=== PATIENT | female | born 1980 | race Caucasian/White ===

== ENCOUNTER 2018-04-17 14:56 | Outpatient (REF) | payer MEDICARE, MEDICAID, SELFPAY ==
[2018-04-17 21:10] LABS: Abs Immature Grans 0.02 k/cumm (0.0-0.09); Absolute Eosinophil Count 0.26 k/cumm (0.0-0.7); Absolute Lymphocyte Count 3.13 k/cumm (1.2-3.4); Absolute Monocyte Count 1.07 k/cumm (0.11-0.7); Absolute Neutrophil Count 5.62 k/cumm (1.2-6.7); Eosinophils % 2.5; HGB 13.9 g/dL (12.0-15.5); Immature Grans % 0.2; Lymphocytes % 30.7; Mean Corp. HGB Concentration 32.3 g/dL (32.0-36.0); Mean Corpuscular Hemoglobin 29.2 pg (27.0-33.0); Mean Corpuscular Volume 90.3 fL (80-95); Monocytes % 10.5; Neutrophils % 55.1; Platelet Count 319 x1000/uL (130-400); RBC 4.76 m/cumm (4.00-5.20); RBC Distribution Width 16.1 % (11.7-14.6)
[2018-04-17 21:29] LABS: ALT 33 U/L (12-78); AST 20 U/L (15-37); Albumin 3.8 g/dL (3.4-5.0); Alkaline Phosphatase 67 U/L (46-116); Bilirubin, Direct 0.09 mg/dL (0.00-0.20); Bilirubin, Total 0.3 mg/dL (0.2-1.0); Total Protein 7.5 g/dL (6.4-8.2)
[2018-04-17 21:48] LABS: VALPROIC ACID 37.5 ug/mL (50-100)
[2018-04-19 10:14] LABS: Syphilis Serology (RPR) Positive (Negative)
[2018-06-08 18:08] LABS: Rapid Plasma Reagin w/Reflex Positive (Negative); Syphilis IgG Ab w/Reflex Positive (Negative)
== END 2018-04-17 15:16 ==
LOC: NCHCN 14:56
PROVIDERS: PCP Nurse Practitioner Family; Visit Provider Nurse Practitioner Family
DX: F31.60 Bipolar disorder, current episode mixed, unspecified (principal); A51.49 Other secondary syphilitic conditions; Z51.81 Encounter for therapeutic drug level monitoring; Z79.899 Other long term (current) drug therapy
CPT/HCPCS: 80076; 86593; 80164; 85025; 85730; 86592; 86780

== ENCOUNTER 2019-03-23 15:17 | Outpatient (REF) | payer MEDICARE, SELFPAY ==
[2019-03-23 21:16] LABS: Abs Immature Grans 0.04 k/cumm (0.0-0.09); Absolute Basophil Count 0.08 k/cumm (0.0-0.2); Absolute Eosinophil Count 0.19 k/cumm (0.0-0.7); Absolute Lymphocyte Count 2.77 k/cumm (1.2-3.4); Absolute Monocyte Count 1.03 k/cumm (0.11-0.7); Absolute Neutrophil Count 9.58 k/cumm (1.2-6.7); Basophils % 0.6; Eosinophils % 1.4; HCT 46.7 % (36.0-46.0); HGB 15.5 g/dL (12.0-15.5); Immature Grans % 0.3; Lymphocytes % 20.2; Mean Corp. HGB Concentration 33.2 g/dL (32.0-36.0); Mean Corpuscular Hemoglobin 30.5 pg (27.0-33.0); Mean Corpuscular Volume 91.7 fL (80-95); Mean Platelet Volume 10.8 fL (8.0-11.0); Monocytes % 7.5; Platelet Count 416 x1000/uL (130-400); RBC 5.09 m/cumm (4.00-5.20); RBC Distribution Width 16.2 % (11.7-14.6); White Blood Cell Count 13.69 k/cumm (4.4-10.8)
[2019-03-23 21:24] LABS: Iron 32 ug/dL (50-175); Total Iron Binding Capacity 445 ug/dL (250-450); Transferrin Sat 7 % (15-50)
[2019-03-23 21:52] LABS: ALT 23 U/L (14-59); AST 21 U/L (15-37); Albumin 3.8 g/dL (3.4-5.0); Alkaline Phosphatase 103 U/L (46-116); BUN 7 mg/dL (7-18); Bilirubin, Total 0.3 mg/dL (0.2-1.0); Calcium 9.4 mg/dL (8.5-10.1); Calculated LDL 88 mg/dL; Chloride 103 mmol/L (98-107); Cholesterol 178 mg/dL (50-200); Folate 18.8 ng/mL (8.6-20.0); Glucose 71 mg/dL (70-100); HDL Cholesterol 80 mg/dL (40-60); Potassium 4.4 mmol/L (3.5-5.1); Sodium 141 mmol/L (136-145); TSH (W/Ref FT4) 1.59 uIU/mL (0.36-3.74); Total Protein 7.5 g/dL (6.4-8.2); Triglyceride 52 mg/dL (30-150); Vitamin B12 368 pg/mL (193-986)
[2019-03-23 22:04] LABS: Amylase 39 U/L (25-115); Lipase 78 U/L (73-393)
== END 2019-03-23 15:37 ==
LOC: NCHCN 15:17
PROVIDERS: PCP Nurse Practitioner Family; Visit Provider Nurse Practitioner Family
DX: R25.1 Tremor, unspecified (principal); R05 Cough; F31.60 Bipolar disorder, current episode mixed, unspecified; R71.8 Other abnormality of red blood cells; E78.89 Other lipoprotein metabolism disorders; F10.10 Alcohol abuse, uncomplicated; F17.210 Nicotine dependence, cigarettes, uncomplicated; G43.109 Migraine with aura, not intractable, without status migrainosus; R06.83 Snoring
CPT/HCPCS: 80053; 80061; 83690; 82150; 82607; 82746; 83540; 83550; 84443; 85025

== ENCOUNTER 2019-09-14 10:20 | Outpatient (CLI) | payer SELFPAY ==
[2019-09-17 16:50] LABS: SARS-CoV-2 RNA Undetected (Undetected); SARS-CoV-2 Specimen Source Nasopharynx
== END 2019-09-14 10:40 ==
PROVIDERS: PCP Nurse Practitioner Family; Visit Provider Nurse Practitioner Family
DX: Z03.818 Encounter for observation for suspected exposure to other biological agents ruled out (principal)
CPT/HCPCS: U0003

== ENCOUNTER 2020-05-02 14:04 | Outpatient (REF) | payer MEDICAID, SELFPAY ==
[2020-05-02 22:12] LABS: Abs Immature Grans 0.03 10^3/uL (0.0-0.06); Absolute Basophil Count 0.09 10^3/uL (0.0-0.2); Absolute Eosinophil Count 0.19 10^3/uL (0.0-0.7); Absolute Lymphocyte Count 2.27 10^3/uL (1.2-3.4); Absolute Monocyte Count 0.81 10^3/uL (0.1-0.8); Absolute Neutrophil Count 6.36 10^3/uL (1.2-6.7); Basophils % 0.9; Eosinophils % 1.9; HCT 48.5 % (36.0-46.0); Immature Grans % 0.3; Lymphocytes % 23.3; MCH 30.4 pg (27.0-33.0); MPV 11.4 fL (8.0-11.0); Monocytes % 8.3; Neutrophils % 65.3; Nucleated RBC 0 %; Platelet Count 346 10^3/uL (130-400); RBC 5.27 10^6/uL (3.93-5.22); RDW 14.1 % (11.7-14.6); RDW-SD 48.2 fL; WBC 9.75 10^3/uL (4.4-10.8)
[2020-05-02 22:35] LABS: Iron 162 ug/dL (50-170); Total Iron Binding Capacity 378 ug/dL (250-450); Transferrin Sat 43 % (15-50)
[2020-05-13 09:33] LABS: HIV-1/2 Ag & Ab Screen Negative (Negative)
[2020-05-16 11:42] LABS: Hepatitis C Ab w Rflx HCV PCR Negative (Negative)
== END 2020-05-02 14:24 ==
LOC: NCHCN 14:04
PROVIDERS: PCP Nurse Practitioner Family; Visit Provider Nurse Practitioner Family
DX: D50.9 Iron deficiency anemia, unspecified (principal); F31.60 Bipolar disorder, current episode mixed, unspecified; Z00.00 Encounter for general adult medical examination without abnormal findings
CPT/HCPCS: 86803; 87389; 83540; 83550; 85025

== ENCOUNTER 2020-07-04 09:33 | Outpatient (REF) | payer MEDICAID, SELFPAY ==
[2020-07-03 21:41] LABS: Abs Immature Grans 0.03 10^3/uL (0.0-0.06); Absolute Eosinophil Count 0.26 10^3/uL (0.0-0.7); Absolute Lymphocyte Count 3.06 10^3/uL (1.2-3.4); Absolute Monocyte Count 1.01 10^3/uL (0.1-0.8); Basophils % 0.9; Eosinophils % 2.4; HCT 45.8 % (36.0-46.0); HGB 15.2 g/dL (11.2-15.7); Immature Grans % 0.3; Lymphocytes % 28.2; MCH 30.8 pg (27.0-33.0); MCHC 33.2 % (32.0-36.0); MCV 92.7 fL (80-95); MPV 11.2 fL (8.0-11.0); Monocytes % 9.3; Neutrophils % 58.9; Nucleated RBC 0 %; Platelet Count 348 10^3/uL (130-400); RBC 4.94 10^6/uL (3.93-5.22); RDW 14.5 % (11.7-14.6); RDW-SD 49.3 fL; WBC 10.86 10^3/uL (4.4-10.8)
[2020-07-03 21:47] LABS: Iron 112 ug/dL (50-170); Total Iron Binding Capacity 342 ug/dL (250-450); Transferrin Sat 33 % (15-50)
[2020-07-03 22:20] LABS: Ferritin 51 ng/mL (8-252); TSH 2.18 uIU/mL (0.36-3.74); Vitamin B12 400 pg/mL (193-986)
== END 2020-07-04 09:53 ==
LOC: NCHCN 09:33
PROVIDERS: PCP Nurse Practitioner Family; Visit Provider Nurse Practitioner Family
DX: D45 Polycythemia vera (principal); R51.9 Headache, unspecified; D50.9 Iron deficiency anemia, unspecified
CPT/HCPCS: 82607; 82728; 83540; 83550; 84443; 85025

== ENCOUNTER 2021-02-11 10:40 | Outpatient (REF) | payer MEDICARE, MEDICAID, SELFPAY ==
[2021-02-10 21:09] LABS: Abs Immature Grans 0.03 10^3/uL (0.0-0.06); Absolute Basophil Count 0.09 10^3/uL (0.0-0.2); Absolute Eosinophil Count 0.11 10^3/uL (0.0-0.7); Absolute Monocyte Count 0.79 10^3/uL (0.1-0.8); Absolute Neutrophil Count 6.78 10^3/uL (1.2-6.7); Basophils % 0.9; Eosinophils % 1.1; HCT 44.2 % (36.0-46.0); HGB 14.3 g/dL (11.2-15.7); Immature Grans % 0.3; Lymphocytes % 23.5; MCH 29.9 pg (27.0-33.0); MCHC 32.4 % (32.0-36.0); MCV 92.5 fL (80-95); MPV 11.2 fL (8.0-11.0); Monocytes % 7.7; Neutrophils % 66.5; Nucleated RBC 0 %; Platelet Count 318 10^3/uL (130-400); RBC 4.78 10^6/uL (3.93-5.22); RDW 14.8 % (11.7-14.6); RDW-SD 50.5 fL
[2021-02-10 21:30] LABS: ALT 27 U/L (14-59); AST 20 U/L (15-37); Albumin 3.7 g/dL (3.4-5.0); Alkaline Phosphatase 85 U/L (46-116); Anion Gap 8.8 mmol/L (3-11); BUN 8 mg/dL (7-18); Bilirubin, Total 0.3 mg/dL (0.2-1.0); CO2 27.2 mmol/L (21.0-32.0); CREATININE 0.7 mg/dL (0.55-1.02); Calcium 9.1 mg/dL (8.5-10.1); Chloride 105 mmol/L (98-107); Glucose 87 mg/dL (74-106); Potassium 4.5 mmol/L (3.5-5.1); Sodium 141 mmol/L (136-145); Total Protein 6.9 g/dL (6.4-8.2)
== END 2021-02-11 10:41 | disposition home or self-care (01) ==
LOC: NCHCN 10:40
PROVIDERS: PCP Nurse Practitioner Family; Visit Provider Family Medicine
DX: F10.10 Alcohol abuse, uncomplicated (principal); D45 Polycythemia vera
CPT/HCPCS: 80053; 85025

== ENCOUNTER 2021-05-12 21:54 | Outpatient (REF) | payer MEDICARE, MEDICAID, SELFPAY ==
[2021-05-20 10:42] LABS: 2-OH-Ethyl-Flurazepam Negative ng/mL (Cutoff: 10); 7-NH-Clonazepam 50 ng/mL (Cutoff: 10); 7-NH-Flunitrazepam Negative ng/mL (Cutoff: 10); Alpha OH-Alprazolam Negative ng/mL (Cutoff: 10); Alpha-OH Midazolam Negative ng/mL (Cutoff: 10); Alpha-OH-Triazolam Negative ng/mL (Cutoff: 10); Alprazolam Negative ng/mL (Cutoff: 10); Benzodiazepines Interpretation Positive.; Chlordiazepoxide Negative ng/mL (Cutoff: 10); Clobazam Negative ng/mL (Cutoff: 10); Clonazepam Negative ng/mL (Cutoff: 10); Diazepam Negative ng/mL (Cutoff: 10); Flurazepam Negative ng/mL (Cutoff: 10); Lorazepam Negative ng/mL (Cutoff: 10); Midazolam Negative ng/mL (Cutoff: 10); N-Desmethylclobazam Negative ng/mL (Cutoff: 10); Prazepam Negative ng/mL (Cutoff: 10); Temazepam Negative ng/mL (Cutoff: 10); Triazolam Negative ng/mL (Cutoff: 10); Zolpidem Carboxylic acid Negative ng/mL (Cutoff: 10)
== END 2021-05-12 21:55 | disposition home or self-care (01) ==
LOC: NCHCN 21:54
PROVIDERS: PCP Nurse Practitioner Family; Visit Provider Nurse Practitioner Psychiatric/Mental Health
DX: F41.8 Other specified anxiety disorders (principal)
CPT/HCPCS: 80346

== ENCOUNTER 2021-06-23 12:02 | Outpatient (REF) | payer MEDICARE, MEDICAID, SELFPAY ==
[2021-06-24 11:40] LABS: COVID-19 RT-PCR UVMMC Result Negative (Negative)
== END 2021-06-23 12:03 | disposition home or self-care (01) ==
LOC: NCHCN 12:02
PROVIDERS: PCP Nurse Practitioner Family; Visit Provider Nurse Practitioner Family
DX: Z20.822 Contact with and (suspected) exposure to COVID-19 (principal); J06.9 Acute upper respiratory infection, unspecified
CPT/HCPCS: U0003; U0005

== ENCOUNTER 2021-10-20 21:24 | Outpatient (REF) | payer MEDICARE, MEDICAID, SELFPAY | END 2021-10-20 21:25 | disposition home or self-care (01) | LOC: NCHCN 21:24 | PROVIDERS: PCP Nurse Practitioner Family; Visit Provider Family Medicine | DX: R30.0 Dysuria (principal) | CPT/HCPCS: 87086 ==

== ENCOUNTER 2021-12-23 16:39 | Outpatient (REF) | payer MEDICARE, MEDICAID, SELFPAY | END 2021-12-23 16:40 | disposition home or self-care (01) | LOC: NCHCN 16:39 | PROVIDERS: PCP Nurse Practitioner Family; Visit Provider Family Medicine | DX: N39.0 Urinary tract infection, site not specified (principal) | CPT/HCPCS: 87077; 87086; 87186 ==

== ENCOUNTER 2022-01-13 15:08 | Outpatient (REF) | payer MEDICARE, MEDICAID, SELFPAY ==
[2022-01-14 21:29] LABS: Chlamydia Result Negative (Negative); GC Result Negative (Negative)
== END 2022-01-13 15:09 | disposition home or self-care (01) ==
LOC: LBN 15:08
PROVIDERS: PCP Nurse Practitioner Family; Visit Provider Physician Assistant Medical
DX: N89.8 Other specified noninflammatory disorders of vagina (principal)
CPT/HCPCS: 87491; 87591; 87480; 87510; 87660

== ENCOUNTER 2022-04-17 11:22 | Outpatient (REF) | payer MEDICARE, MEDICAID, SELFPAY | END 2022-04-17 11:23 | disposition home or self-care (01) | LOC: LBN 11:22 | PROVIDERS: PCP Nurse Practitioner Family; Visit Provider Nurse Practitioner Family | DX: J02.9 Acute pharyngitis, unspecified (principal) | CPT/HCPCS: 87070 ==

== ENCOUNTER 2022-05-18 20:46 | Emergency (ER) | payer MEDICARE, MEDICAID, SELFPAY ==
[2022-05-18 20:50] VITALS: BP 138/84; PULSE 91; RESP 16; TEMP 36.8; O2SAT 98
--- NOTE | 2022-05-18 21:08 | ED.GENADUL_ITS ---
Discharge Plan Disposition Patient Disposition: Home Condition: Stable Discharge Details Clinical Impression: Alcohol abuse Primary Care Provider: aSniya Pascual ED Provider: Ni Rodriguez Home Meds and New Rx's Prescriptions: Continued venlafaxine [Effexor XR] 75 MG capsule,extended release 24hr 1 tab PO DAILY lidocaine [Lidoderm] 5 % adhesive patch,medicated 1 patch topical DAILY Rx Instructions: leave on most painful area for up to 12 hrs docusate sodium 100 mg capsule 100 mg PO BID nicotine (polacrilex) [Nicorette] 2 mg gum 2 mg buccal Q2H Spiriva with HandiHaler 18 mcg capsule, w/inhalation device 1 cap inhalation DAILY Rx Instructions: puncture 1 cap using device; one dose = 2 inhalations Vraylar 1.5 mg capsule 3 mg PO DAILY famotidine [Pepcid] 20 mg tablet 20 mg PO DAILY omeprazole 40 mg capsule,delayed release(DR/EC) 40 mg PO DAILY diphenhydramine HCl [Allergy (diphenhydramine)] 25 mg tablet 25 mg PO QHS buspirone 10 mg tablet 5 mg PO TID albuterol sulfate [Ventolin HFA] 90 mcg/actuation HFA aerosol inhaler 2 puff inhalation Q6H PRN esomeprazole magnesium 40 mg capsule,delayed release(DR/EC) 40 mg PO DAILY Label Comments: TAKE ONE CAPSULE BY MOUTH EVERY DAY vilazodone [Viibryd] 40 mg tablet 40 mg PO DAILY Label Comments: TAKE ONE TABLET BY MOUTH EVERY DAY WITH MEALS Discharge Instructions Instructions: Abuse of Alcohol (ED), Alcohol Withdrawal (ED) Additional Instructions: Please follow-up with treatment facilities as instructed by the asset recovery specialist. Please return to the ER for any tremors, seeing things that are not there, uncontrolled nausea vomiting, feeling sicker at any time or any concerns. Stand Alone Forms: Work Release Referrals: Saniya Pascual [Primary Care Provider] - Medical Decision Making 41-year-old female with past medical history of bipolar 1 disorder, PTSD, alcohol abuse, acquired syphilis, tobacco abuse and urinary incontinence presents to the ER with alcohol intoxication and request for detox. Patient last had an alcoholic drink proximately 5 minutes prior to arrival. She does appear intoxicated. Usually drinks approximately 18-36 beers a day. She reports that she has been to rehab numerous times and has had a history of alcohol withdrawal seizures. She denies any abdominal pain, does report intermittent diarrhea. Patient is refusing to speak with the asset recovery specialist at this time. 2148: Patient changed her mind, she did speak with asset recovery specialist. She did consent to have blood drawn CBC, CMP and ethyl alcohol level ordered. CBC shows white blood cell count 12.61, H&H within normal limits, CIWA score is a 3, patient does have clonazepam at home. Patient discharged in the care of her family I did discuss strict return instructions with them to return with any tremors, uncontrolled vomiting, shakes, chills or seeing anything that is not there they verbalized understanding. This text was generated using [employer] dictation system, please disregard any oddities of phrase or misspellings. Medical Records Medical records reviewed: Yes I reviewed the patient's medical records. Lab Data Lab results reviewed: Yes I reviewed the patient's lab results. Labs: Laboratory Tests Range/Units 05/18/22 05/18/22 21:31 21:31 WBC (4.4-10.8) 10^3/uL 12.61 H RBC (3.93-5.22) 10^6/uL 4.74 Hgb (11.2-15.7) g/dL 14.6 Hct (36.0-46.0) % 43.6 MCV (80-95) fL 92 MCH (27.0-33.0) pg 30.8 MCHC (32.0-36.0) % 33.5 RDW (11.7-14.6) % 14.8 H Plt Count (130-400) 10^3/uL 319 MPV (8.0-11.0) fL 9.8 Immature Gran % 0.3 Neutrophils % 52.7 Lymphocytes % 34.7 Monocytes % 7.9 Eosinophils % 3.4 Basophils % 1.0 Nucleated RBC % (0.0-0.3) % 0.0 Absolute Neutrophils (1.2-6.7) 10^3/uL 6.65 Absolute Lymphocytes (1.2-3.4) 10^3/uL 4.38 H Absolute Monocytes (0.1-0.8) 10^3/uL 1.00 H Absolute Eosinophils (0.0-0.7) 10^3/uL 0.43 Absolute Basophils (0.0-0.2) 10^3/uL 0.13 Sodium (136-145) mmol/L 139 Potassium (3.5-5.1) mmol/L 3.5 Chloride (98-107) mmol/L 104 Carbon Dioxide (21.0-32.0) mmol/L 23.5 Anion Gap (3-11) mmol/L 11.5 H BUN (7-18) mg/dL 9 Creatinine (0.55-1.02) mg/dL 0.8 Est GFR (CKD-EPI 2020) (mL/min/1.73m2) 95.46 Glucose (74-106) mg/dL 102 Calcium (8.5-10.1) mg/dL 8.5 Total Bilirubin (0.2-1.0) mg/dL 0.2 AST (15-37) U/L 22 ALT (14-59) U/L 27 Alkaline Phosphatase (46-116) U/L 74 Total Protein (6.4-8.2) g/dL 7.4 Albumin (3.4-5.0) g/dL 3.7 Ethyl Alcohol (<10) mg/dL 204.9 H Sign Out No HPI General Mode of arrival: ambulatory . Date/Time Provider Initiated Documentation: 05/18/22 20:49 . Limitations to Documentation: altered mental status and physical limitation . Information obtained by: patient, family, RN notes reviewed and old records reviewed . HPI Narrative: 41-year-old female with past medical history of bipolar 1 disorder, PTSD, alcohol abuse, acquired syphilis, tobacco abuse and urinary incontinence presents to the ER with alcohol intoxication and request for detox. Patient last had an alcoholic drink proximately 5 minutes prior to arrival. She does appear intoxicated. Usually drinks approximately 18-36 beers a day. She reports that she has been to rehab numerous times and has had a history of alcohol withdrawal seizures. She denies any abdominal pain, does report intermittent diarrhea. Related Data Home Medications Medication Instructions Recorded Confirmed venlafaxine 75 mg capsule,extended 1 tab PO DAILY 09/15/16 05/18/22 release 24 hr (Effexor XR) albuterol sulfate 90 mcg/actuation 2 puff inhalation Q6H PRN 08/27/20 05/18/22 aerosol inhaler (Ventolin HFA) buspirone 10 mg tablet 5 mg PO TID 08/27/20 05/18/22 cariprazine 1.5 mg capsule 3 mg PO DAILY 08/27/20 05/18/22 (Vraylar) diphenhydramine HCl 25 mg tablet 25 mg PO QHS 08/27/20 05/18/22 (Allergy (diphenhydramine)) docusate sodium 100 mg capsule 100 mg PO BID 08/27/20 05/18/22 famotidine 20 mg tablet (Pepcid) 20 mg PO DAILY 08/27/20 05/18/22 lidocaine 5 % topical patch 1 patch topical DAILY 08/27/20 05/18/22 (Lidoderm) nicotine (polacrilex) 2 mg gum 2 mg buccal Q2H 08/27/20 05/18/22 (Nicorette) omeprazole 40 mg capsule,delayed 40 mg PO DAILY 08/27/20 05/18/22 release tiotropium bromide 18 mcg capsule 1 cap inhalation DAILY 08/27/20 05/18/22 with inhalation device (Spiriva with HandiHaler) esomeprazole magnesium 40 mg 40 mg PO DAILY 05/18/22 05/18/22 capsule,delayed release vilazodone 40 mg tablet (Viibryd) 40 mg PO DAILY 05/18/22 05/18/22 Allergies Allergy/AdvReac Type Severity Reaction Status Date / Time pineapple Allergy Severe Anaphylaxis Verified 05/18/22 20:55 propranolol Allergy Severe Verified 05/18/22 20:55 mirtazapine [From Remeron] Allergy Mild Verified 05/18/22 20:55 trazodone AdvReac Mild Hallucinati Unverified 05/18/22 20:55 ons walnuts Allergy Severe Anaphylaxis Uncoded 05/18/22 20:55 Trazodone HCL Allergy Mild Uncoded 05/18/22 20:55 General Stated Complaint: ETOHWithdr BETSY: 3 Review of Systems Narrative: History somewhat limited by patient intoxication. All systems reviewed & are unremarkable except as noted in HPI and below Gastrointestinal Gastrointestinal: Denies abdominal pain, Denies hematochezia, Reports diarrhea, Denies nausea and Denies vomiting PFSH All Active Problems Alcohol abuse (Chronic) Medical History Acquired syphilis Alcohol abuse Anxiety Bipolar 1 disorder, mixed Dysphagia GERD (gastroesophageal reflux disease) Headache History of asthma Lumbar back pain Mixed stress and urge urinary incontinence Obesity Occasional tremors Paranoia Polycythemia vera PTSD (post-traumatic stress disorder) Shortness of breath Snoring Tobacco abuse Surgical History EGD - MAC (02/18/16) Endometrial Ablation (03/28/15) Ligation of fallopian tube Singh Fundoplication 2005 Release for de Quervain's tenosynovitis of hand 2009 LEFT WRIST Vaginal hysterectomy (06/17/15) Ovary sparing Family History Maternal Aunt Neoplasm breast ca Maternal Aunt Neoplasm breast ca Social History Smoking/Tobacco Use Status: Current every day Tobacco Type: cigarettes Smoking risk assessment performed?: Yes Alcohol Intake: current Alcohol Intake frequency: 3 or more drinks per day Alcohol type: beer Drug use: Occasionally Substance use type: marijuana Do you feel safe in your relationship?: Yes Exam Narrative Exam Narrative: Constitutional: Alert and oriented x3. Appears stated age. Normal body habitus. Appears acutely intoxicated at this time. Does endorse recent EtOH. Head: Normocephalic, no trauma. Eyes: Pupils PERRL, Red reflex noted, EOM's intact. Eyelids symmetrical without lesions, discharge, or swelling. ENT: Bilateral TM's WNL, External ear normal to inspection, no mastoid TTP, swelling, or erythema, Nasal turbinates WNL, no nasal discharge. Normal dentition, Posterior pharynx WNL, no exudate. Chest: RRR, Normal S1, S2, distal pulses intact. Resp: Lungs clear to auscultation bilaterally, no wheezes, rales, or rhonchi. Abdomen: Soft, non-distended, Normoactive bowel sounds all 4 quads. Musculoskeletal: Normal gait, 5/5 strength to all four extremities. Skin: No suspicious rashes or lesions. Capillary refill less than 2 sec. Neurologic: Cranial nerves II-XII intact. Alert and oriented x 3. Motor: No deficits noted. Sensory: Intact bilaterally all 4 extremities. Reflexes: DTR's intact bilaterally.. Hematologic/Lymphatic: No ecchymosis, no lymphadenopathy. Course Vital Signs Vital signs: Vital Signs Temperature 36.8 C 05/18/22 20:50 Pulse 91 H 05/18/22 20:50 Respiratory Rate 16 05/18/22 20:50 Blood Pressure 138/84 05/18/22 20:50 Pulse Oximetry 98 05/18/22 20:50 Temperature 36.8 C 05/18/22 20:50 Temperature Source Temporal Artery Scan 05/18/22 20:50 Pulse 91 H 05/18/22 20:50 Respiratory Rate 16 05/18/22 20:50 Respiratory Effort 05/18/22 20:50 Blood Pressure 138/84 05/18/22 20:50 Blood Pressure Position Sitting 05/18/22 20:50 Pulse Oximetry 98 05/18/22 20:50 Oxygen Delivery Method Room Air 05/18/22 20:50 Oxygen Flow Rate 0 05/18/22 20:50 Pain Level 0 05/18/22 20:50 PAWSS Have you Been Recently Intoxicated or Drunk Within the Last 30 days?: Yes Have you Ever Experienced Previous Episodes of Alcohol Withdrawal?: Yes Have you ever Experienced Withdrawal Seizures?: No Have you ever Experienced Delirium Tremens(DT)s?: Yes Have you ever undergone Alcohol Rehabilitation Treatment (i.e, inpt ot outpatient treatment programs)?: Yes Have you ever Experienced Blackouts?: Yes Have you ever Combined Alcohol with other Downers within the last 90 days?: No Have you ever Combined Alcohol with any other Substance of Abuse during the last 90 days?: No Positive Blood Alcohol level on Presentation? [PCS.BAL]: Yes Evidence of Increased Autonomic Activity (i.e. HR>120, tremor, sweating, agitation, nausea)?: No Result: 6
[2022-05-18 21:37] LABS: Abs Immature Grans 0.04 10^3/uL (0.0-0.06); Absolute Eosinophil Count 0.43 10^3/uL (0.0-0.7); Eosinophils % 3.4; HCT 43.6 % (36.0-46.0); HGB 14.6 g/dL (11.2-15.7); Immature Grans % 0.3; Lymphocytes % 34.7; MCH 30.8 pg (27.0-33.0); MCHC 33.5 % (32.0-36.0); MCV 92 fL (80-95); MPV 9.8 fL (8.0-11.0); Monocytes % 7.9; Neutrophils % 52.7; Platelet Count 319 10^3/uL (130-400); RBC 4.74 10^6/uL (3.93-5.22); RDW 14.8 % (11.7-14.6); RDW-SD 50.5 fL; WBC 12.61 10^3/uL (4.4-10.8)
[2022-05-18 21:38] LABS: Absolute Basophil Count 0.13 10^3/uL (0.0-0.2); Absolute Lymphocyte Count 4.38 10^3/uL (1.2-3.4); Absolute Neutrophil Count 6.65 10^3/uL (1.2-6.7)
[2022-05-18 21:51] LABS: ALT 27 U/L (14-59); AST 22 U/L (15-37); Albumin 3.7 g/dL (3.4-5.0); Alkaline Phosphatase 74 U/L (46-116); Anion Gap 11.5 mmol/L (3-11); BUN 9 mg/dL (7-18); Bilirubin, Total 0.2 mg/dL (0.2-1.0); CO2 23.5 mmol/L (21.0-32.0); CREATININE 0.8 mg/dL (0.55-1.02); Calcium 8.5 mg/dL (8.5-10.1); Chloride 104 mmol/L (98-107); ETHANOL BLOOD 204.9 mg/dL (<10); Estimated GFR 95.46 (mL/min/1.73m2); Glucose 102 mg/dL (74-106); Potassium 3.5 mmol/L (3.5-5.1); Sodium 139 mmol/L (136-145); Total Protein 7.4 g/dL (6.4-8.2)
== END 2022-05-18 22:12 | disposition home or self-care (01) ==
PROVIDERS: Emergency Provider Registered Nurse Emergency; PCP Nurse Practitioner Family
DX: F10.120 Alcohol abuse with intoxication, uncomplicated (principal); Y90.7 Blood alcohol level of 200-239 mg/100 ml
CPT/HCPCS: 80053; 99281; 80320; 85025; 99283

== ENCOUNTER 2022-06-26 09:34 | Emergency (ER) | payer MEDICARE, MEDICAID, SELFPAY ==
[2022-06-26 09:40] VITALS: BP 126/83; PULSE 96; RESP 16; TEMP 37; O2SAT 99
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
[2022-06-26] MEDS: Ketorolac 30 MG/ML VIAL IM (10:38)
[2022-06-26] MEDS: methylPREDNISolone ACETATE 40 MG/ML VIAL IM (10:41)
[2022-06-26] MEDS: Lidocaine 5% Patch 1 PATCH TP (10:41)
--- NOTE | 2022-06-26 15:40 | NUR.NOTE ---
Nursing Note: referral to cm for pcp follow up for back pain
== END 2022-06-26 10:51 | disposition home or self-care (01) ==
PROVIDERS: Emergency Provider Nurse Practitioner Family; PCP Nurse Practitioner Family
DX: M54.41 Lumbago with sciatica, right side (principal)
CPT/HCPCS: 96372; 99284; J1030; J1885

== ENCOUNTER 2022-09-06 10:47 | Outpatient (REF) | payer MEDICARE, MEDICAID, SELFPAY | END 2022-09-06 10:48 | disposition home or self-care (01) | LOC: LBN 10:47 | PROVIDERS: PCP Nurse Practitioner Family; Visit Provider Nurse Practitioner Family | DX: R35.0 Frequency of micturition (principal) | CPT/HCPCS: 87086 ==

== ENCOUNTER 2022-11-07 11:25 | Emergency (ER) | payer MEDICARE, MEDICAID, SELFPAY ==
[2022-11-07 11:30] VITALS: BP 138/73; PULSE 72; RESP 18; TEMP 37; O2SAT 98
[2022-11-07 12:00] LABS: Abs Immature Grans 0.04 10^3/uL (0.0-0.06); Absolute Eosinophil Count 0.32 10^3/uL (0.0-0.7); Absolute Lymphocyte Count 2.82 10^3/uL (1.2-3.4); Absolute Monocyte Count 1.13 10^3/uL (0.1-0.8); Basophils % 0.8; Eosinophils % 2.5; HGB 15.2 g/dL (11.2-15.7); Immature Grans % 0.3; Lymphocytes % 21.9; MCV 91 fL (80-95); Monocytes % 8.8; Neutrophils % 65.7; Platelet Count 318 10^3/uL (130-400); RBC 5.07 10^6/uL (3.93-5.22); RDW 14.3 % (11.7-14.6); RDW-SD 47.6 fL; WBC 12.89 10^3/uL (4.4-10.8)
[2022-11-07 12:05] LABS: Absolute Neutrophil Count 8.47 10^3/uL (1.2-6.7)
[2022-11-07] MEDS: Lactated Ringers 1,000 ML 1000 ML IV (12:11)
[2022-11-07] MEDS: Acetaminophen 325 MG TAB 650 MG PO (12:11)
[2022-11-07] MEDS: diphenhydrAMINE 50 MG/ML VIAL 25 MG IVP (12:11)
[2022-11-07] MEDS: Prochlorperazine 10 MG/2 ML VIAL IVP (12:12)
[2022-11-07 12:26] LABS: Bilirubin Negative (Negative); Blood Negative (Negative); Clarity Sl Cloudy (Clear); Glucose Negative (Negative); Ketones Negative (Negative); Leukocyte Esterase Negative (Negative); Nitrite Negative (Negative); Urobilinogen 0.2 mg/dL (Up to 0.2)
[2022-11-07 12:32] LABS: ALT 25 U/L (14-59); AST 19 U/L (15-37); Albumin 3.5 g/dL (3.4-5.0); Alkaline Phosphatase 77 U/L (46-116); Anion Gap 8.8 mmol/L (3-11); BUN 9 mg/dL (7-18); Bilirubin, Total 0.3 mg/dL (0.2-1.0); CO2 26.2 mmol/L (21.0-32.0); CREATININE 0.8 mg/dL (0.55-1.02); Calcium 9.2 mg/dL (8.5-10.1); Chloride 104 mmol/L (98-107); Estimated GFR 94.87 (mL/min/1.73m2); Glucose 83 mg/dL (74-106); Potassium 4.5 mmol/L (3.5-5.1); Sodium 139 mmol/L (136-145); Total Protein 6.9 g/dL (6.4-8.2)
--- NOTE | 2022-11-07 13:17 | ED.GENADUL_ITS ---
Discharge Plan Disposition Patient Disposition: Home Discharge Details Clinical Impression: Headache Primary Care Provider: Saniya Pascual ED Provider: Steph Walton Home Meds and New Rx's Prescriptions: New prochlorperazine maleate [Compazine] 10 mg tablet 10 mg PO Q6H PRNQty: 10 0RF Continued venlafaxine [Effexor XR] 75 MG capsule,extended release 24hr 1 tab PO DAILY lidocaine [Lidoderm] 5 % adhesive patch,medicated 1 patch topical DAILY Rx Instructions: leave on most painful area for up to 12 hrs docusate sodium 100 mg capsule 100 mg PO BID nicotine (polacrilex) [Nicorette] 2 mg gum 2 mg buccal Q2H Spiriva with HandiHaler 18 mcg capsule, w/inhalation device 1 cap inhalation DAILY Rx Instructions: puncture 1 cap using device; one dose = 2 inhalations Vraylar 1.5 mg capsule 3 mg PO DAILY famotidine [Pepcid] 20 mg tablet 20 mg PO DAILY omeprazole 40 mg capsule,delayed release(DR/EC) 40 mg PO DAILY diphenhydramine HCl [Allergy (diphenhydramine)] 25 mg tablet 25 mg PO QHS buspirone 10 mg tablet 5 mg PO TID albuterol sulfate [Ventolin HFA] 90 mcg/actuation HFA aerosol inhaler 2 puff inhalation Q6H PRN esomeprazole magnesium 40 mg capsule,delayed release(DR/EC) 40 mg PO DAILY Patient Comments: TAKE ONE CAPSULE BY MOUTH EVERY DAY vilazodone [Viibryd] 40 mg tablet 40 mg PO DAILY Patient Comments: TAKE ONE TABLET BY MOUTH EVERY DAY WITH MEALS Vraylar 3 mg capsule 1 cap PO DAILY Patient Comments: TAKE ONE CAPSULE BY MOUTH EVERY DAY diclofenac potassium 50 mg tablet 50 mg PO TID PRN (Reason: pain) Qty: 15 0RF cyclobenzaprine 10 mg tablet 10 mg PO TID PRN (Reason: muscle spasm) Qty: 15 0RF Discharge Instructions Instructions: General Headache (ED) Additional Instructions: Take Compazine as needed for headache Ibuprofen and Tylenol for headache Increase your fluid hydration, at least ten 8 ounce glasses of water daily Follow-up with your primary care physician and return earlier should you have new or worsening complaints Referrals: Saniya Pascual [Primary Care Provider] - Medical Decision Making This 42-year-old female presents with report of headache, no acute distress, photophobic Compazine, fluids, Tylenol administered with good effect, still mild discomfort, given Compazine for home, offered additional medication, patient has declined She is alert, oriented with a nonfocal neurological exam I was talking to patient and she asked to be tested for HIV as she had sexual contact recently and would like to be tested, she denies any vaginal discharge or additional symptoms at this time Return precautions reviewed and patient expressed understanding In no acute distress and ambulatory with steady gait at time of discharge home Lab Data Lab results reviewed: Yes I reviewed the patient's lab results. HPI General Date/Time Provider Initiated Documentation: 11/07/22 11:30 . HPI Narrative: This 42-year-old female presents with report of headache, remote history of headaches. Taking [id number] medication without alleviation in symptoms. Denies fever or chills. Denies chest pain or shortness of breath. Denies stiff neck. Denies known carbon monoxide exposure. Photophobic and photophobic for patient. Denies chance of . Related Data Home Medications Medication Instructions Recorded Confirmed venlafaxine 75 mg capsule,extended 1 tab PO DAILY 09/15/16 05/18/22 release 24 hr (Effexor XR) albuterol sulfate 90 mcg/actuation 2 puff inhalation Q6H PRN 08/27/20 05/18/22 aerosol inhaler (Ventolin HFA) buspirone 10 mg tablet 5 mg PO TID 08/27/20 05/18/22 cariprazine 1.5 mg capsule 3 mg PO DAILY 08/27/20 05/18/22 (Vraylar) diphenhydramine HCl 25 mg tablet 25 mg PO QHS 08/27/20 05/18/22 (Allergy (diphenhydramine)) docusate sodium 100 mg capsule 100 mg PO BID 08/27/20 05/18/22 famotidine 20 mg tablet (Pepcid) 20 mg PO DAILY 08/27/20 05/18/22 lidocaine 5 % topical patch 1 patch topical DAILY 08/27/20 05/18/22 (Lidoderm) nicotine (polacrilex) 2 mg gum 2 mg buccal Q2H 08/27/20 05/18/22 (Nicorette) omeprazole 40 mg capsule,delayed 40 mg PO DAILY 08/27/20 05/18/22 release tiotropium bromide 18 mcg capsule 1 cap inhalation DAILY 08/27/20 05/18/22 with inhalation device (Spiriva with HandiHaler) esomeprazole magnesium 40 mg 40 mg PO DAILY 05/18/22 06/26/22 capsule,delayed release vilazodone 40 mg tablet (Viibryd) 40 mg PO DAILY 05/18/22 06/26/22 cariprazine 3 mg capsule (Vraylar) 1 cap PO DAILY 06/26/22 06/26/22 cyclobenzaprine 10 mg tablet 10 mg PO TID PRN muscle spasm #15 06/26/22 tabs diclofenac potassium 50 mg tablet 50 mg PO TID PRN pain #15 tabs 06/26/22 prochlorperazine maleate 10 mg 10 mg PO Q6H PRN #10 tabs 11/07/22 tablet (Compazine) Previous Rx's Medication Instructions Recorded cyclobenzaprine 10 mg tablet 10 mg PO TID PRN muscle spasm #15 06/26/22 tabs diclofenac potassium 50 mg tablet 50 mg PO TID PRN pain #15 tabs 06/26/22 prochlorperazine maleate 10 mg 10 mg PO Q6H PRN #10 tabs 11/07/22 tablet (Compazine) Allergies Allergy/AdvReac Type Severity Reaction Status Date / Time pineapple Allergy Severe Anaphylaxis Verified 06/26/22 09:47 propranolol Allergy Severe Verified 06/26/22 09:47 mirtazapine [From Remeron] Allergy Mild Verified 06/26/22 09:47 trazodone AdvReac Mild Hallucinati Unverified 06/26/22 09:47 ons walnuts Allergy Severe Anaphylaxis Uncoded 06/26/22 09:47 Trazodone HCL Allergy Mild Uncoded 06/26/22 09:47 General Stated Complaint: Headache BETSY: 3 PFSH All Active Problems (Updated 11/07/22 @ 13:21 by ML Padilla) Headache (Acute) Medical History Acquired syphilis Alcohol abuse Anxiety Bipolar 1 disorder, mixed Dysphagia GERD (gastroesophageal reflux disease) Headache History of asthma Lumbar back pain Mixed stress and urge urinary incontinence Obesity Occasional tremors Paranoia Polycythemia vera PTSD (post-traumatic stress disorder) Shortness of breath Snoring Tobacco abuse Surgical History EGD - MAC (02/18/16) Endometrial Ablation (03/28/15) Ligation of fallopian tube Singh Fundoplication 2005 Release for de Quervain's tenosynovitis of hand 2009 LEFT WRIST Vaginal hysterectomy (06/17/15) Ovary sparing Family History Maternal Aunt Neoplasm breast ca Maternal Aunt Neoplasm breast ca Social History Smoking/Tobacco Use Status: Current every day Tobacco Type: cigarettes Smoking risk assessment performed?: Yes Alcohol Intake: former Drug use: Occasionally Substance use type: former substance user, marijuana and crack/cocaine Do you feel safe at home: Yes Do you feel safe in your relationship?: Yes Exam Const General: cooperative, comfortable and no acute distress Orientation: alert and oriented x3 Eyes Pupils: PERRL Neck Other: No meningismus Resp Effort & Inspection: normal respiratory effort Auscultation: clear to auscultation bilaterally Cardio Rate: regular rate Rhythm: regular rhythm Neuro General: patient alert and patient oriented x3 Cranial Nerves: CN's II-XI intact bilaterally and tongue midline Cognition: normal cognition Speech: speech normal Gait: normal gait Course Vital Signs Vital signs: Vital Signs Temperature 37 C 11/07/22 11:30 Pulse 72 11/07/22 11:30 Respiratory Rate 18 11/07/22 11:30 Blood Pressure 138/73 11/07/22 11:30 Pulse Oximetry 98 11/07/22 11:30 Temperature 37 C 11/07/22 11:30 Temperature Source Temporal Artery Scan 11/07/22 11:30 Pulse 72 11/07/22 11:30 Respiratory Rate 18 11/07/22 11:30 Respiratory Effort Normal 11/07/22 12:30 Blood Pressure 138/73 11/07/22 11:30 Blood Pressure Position Sitting 11/07/22 11:30 Pulse Oximetry 98 11/07/22 11:30 Oxygen Delivery Method Room Air 11/07/22 11:30 Oxygen Flow Rate 0 05/28/23 11:30 Lab/Test Results Lab/Test Results: Laboratory Tests Range/Units 11/07/22 11/07/22 11/07/22 11:53 11:53 12:01 WBC (4.4-10.8) 10^3/uL 12.89 H RBC (3.93-5.22) 10^6/uL 5.07 Hgb (11.2-15.7) g/dL 15.2 Hct (36.0-46.0) % 46.0 MCV (80-95) fL 91 MCH (27.0-33.0) pg 30.0 MCHC (32.0-36.0) % 33.0 RDW (11.7-14.6) % 14.3 Plt Count (130-400) 10^3/uL 318 MPV (8.0-11.0) fL 11.0 Immature Gran % 0.3 Neutrophils % 65.7 Lymphocytes % 21.9 Monocytes % 8.8 Eosinophils % 2.5 Basophils % 0.8 Nucleated RBC % (0.0-0.3) % 0.0 Absolute Neutrophils (1.2-6.7) 10^3/uL 8.47 H Absolute Lymphocytes (1.2-3.4) 10^3/uL 2.82 Absolute Monocytes (0.1-0.8) 10^3/uL 1.13 H Absolute Eosinophils (0.0-0.7) 10^3/uL 0.32 Absolute Basophils (0.0-0.2) 10^3/uL 0.10 Sodium (136-145) mmol/L 139 Potassium (3.5-5.1) mmol/L 4.5 Chloride (98-107) mmol/L 104 Carbon Dioxide (21.0-32.0) mmol/L 26.2 Anion Gap (3-11) mmol/L 8.8 BUN (7-18) mg/dL 9 Creatinine (0.55-1.02) mg/dL 0.8 Est GFR (CKD-EPI 2020) (mL/min/1.73m2) 94.87 Glucose (74-106) mg/dL 83 Calcium (8.5-10.1) mg/dL 9.2 Total Bilirubin (0.2-1.0) mg/dL 0.3 AST (15-37) U/L 19 ALT (14-59) U/L 25 Alkaline Phosphatase (46-116) U/L 77 Total Protein (6.4-8.2) g/dL 6.9 Albumin (3.4-5.0) g/dL 3.5 Urine Color (Yellow) Yellow Urine Clarity (Clear) Sl Cloudy Urine pH (5-8) 7.0 Ur Specific [place] (1.005-1.025) 1.010 Urine Protein (Negative) mg/dL Negative Urine Ketones (Negative) mg/dL Negative Urine Blood (Negative) Negative Urine Nitrite (Negative) Negative Urine Bilirubin (Negative) Negative Urine Urobilinogen (Up to 0.2) mg/dL 0.2 Ur Leukocyte Esterase (Negative) Negative Urine Glucose (Negative) mg/dL Negative
[2022-11-07 13:27] VITALS: PULSE 88; RESP 18; O2SAT 96
[2022-11-08 10:21] LABS: Syphilis Serology (RPR) Positive (Negative)
[2022-11-08 12:14] LABS: HIV-1/2 Ag & Ab Screen Negative (Negative)
[2022-11-11 10:52] LABS: RPR w/Reflex Positive (Negative)
== END 2022-11-07 13:28 | disposition home or self-care (01) ==
PROVIDERS: Emergency Provider Physician Assistant; PCP Nurse Practitioner Family
DX: R51.9 Headache, unspecified (principal)
CPT/HCPCS: 0064U; 36415; 80053; 81025; 86593; 87389; 96361; 96374; 96375; 99283; 81003; 85025; 86592; 99284; J0780; J1200

== ENCOUNTER 2022-11-08 18:18 | Emergency (ER) | payer MEDICARE, MEDICAID, SELFPAY ==
[2022-11-08 18:22] VITALS: PULSE 67; RESP 18; TEMP 37.1; O2SAT 95
[2022-11-08 18:23] VITALS: BP 117/79
--- NOTE | 2022-11-08 18:45 | DI.CT_ITS ---
Exam(s) CT HEAD WO EXAM: CT HEAD WO CLINICAL HISTORY: Headache. TECHNIQUE: Imaging Protocol: Axial computed tomography images with coronal and sagittal reformatted images were created and reviewed COMPARISON: CT HEAD AND CSPINE W/O CONTRAST from 05/05/2017 FINDINGS: There are no skull fractures. There is no fluid in the visualized paranasal sinuses. There is no evidence of intracranial hemorrhage, mass effect, or shift of midline structures. There are no extra-axial fluid collections. The ventricles are not enlarged or shifted and there is no blo od within the ventricular system nor within the basal cisterns. IMPRESSION: No acute intracranial findings on this noninfused CT scan of the brain. RADIATION DOSE DELIVERED: 755.18mGy.cm Total DLP DATA REPOSITORY: All CT scans at this facility are submitted to the National Radiology Data Registry (NRDR) Dose Index Registry (DIR) with the [employer] (A[employer]). RADIATION OPTIMIZATION: All CT scans at this facility use at least one of these dose optimization te chniques: automated exposure control; mA and/or kV adjustment per patient size (includes targeted exa ms where dose is matched to clinical indication); or iterative reconstruction.
--- NOTE | 2022-11-08 19:00 | W.ED.GENAD ---
Discharge Plan Disposition Patient Disposition: Home Discharge Details Clinical Impression: Headache Primary Care Provider: Saniya Pascual ED Provider: Ni Rodriguez Home Meds and New Rx's Prescriptions: Continued venlafaxine [Effexor XR] 75 MG capsule,extended release 24hr 1 tab PO DAILY Patient Comments: pt has not taken in years Vraylar 1.5 mg capsule 3 mg PO DAILY Patient Comments: does not take famotidine [Pepcid] 20 mg tablet 20 mg PO DAILY Patient Comments: does not use diphenhydramine HCl [Allergy (diphenhydramine)] 25 mg tablet 25 mg PO QHS Patient Comments: does not take albuterol sulfate [Ventolin HFA] 90 mcg/actuation HFA aerosol inhaler 2 puff inhalation Q6H PRN prochlorperazine maleate [Compazine] 10 mg tablet 10 mg PO Q6H PRNQty: 10 0RF esomeprazole magnesium 40 mg capsule,delayed release(DR/EC) 40 mg PO DAILY Patient Comments: TAKE ONE CAPSULE BY MOUTH EVERY DAY vilazodone [Viibryd] 40 mg tablet 40 mg PO DAILY Vraylar 3 mg capsule 1 cap PO DAILY Patient Comments: does not take diclofenac potassium 50 mg tablet 50 mg PO TID PRN (Reason: pain) Qty: 15 0RF Patient Comments: does not take No Action lidocaine [Lidoderm] 5 % adhesive patch,medicated 1 patch topical DAILY Patient Comments: does not use Rx Instructions: leave on most painful area for up to 12 hrs docusate sodium 100 mg capsule 100 mg PO BID Patient Comments: does not take nicotine (polacrilex) [Nicorette] 2 mg gum 2 mg buccal Q2H Patient Comments: does not use Spiriva with HandiHaler 18 mcg capsule, w/inhalation device 1 cap inhalation DAILY Rx Instructions: puncture 1 cap using device; one dose = 2 inhalations omeprazole 40 mg capsule,delayed release(DR/EC) 40 mg PO DAILY Patient Comments: does not take buspirone 10 mg tablet 5 mg PO TID Patient Comments: does not take prazosin 1 mg capsule 2 mg PO HS gabapentin 300 mg capsule 300 mg PO TID cyclobenzaprine 10 mg tablet 10 mg PO TID PRN (Reason: muscle spasm) Qty: 15 0RF Discharge Instructions Instructions: General Headache (ED) Additional Instructions: Take the hydrocodone with Tylenol 1 tablet every 4-6 hours as needed for severe pain. Please take this with food and no driving or operating heavy machinery. This may cause constipation. CT was within normal limits. Follow up with primary care provider in 3-5 days. Return to ED sooner if any worsening or concerns. Increase oral fluids. Referrals: Saniya Pascual [Primary Care Provider] - 3 days Medical Decision Making 42-year-old female presents to the ER with a chief complaint of headache, drooling pressure and worsening headache with bending over which has been ongoing for over a week. Patient was seen here in the ER yesterday for same. She was given Compazine, had lab work done and discharge instructions. She does have a history of migraines, syphilis, PTSD, obesity, tobacco abuse and GERD and anxiety. She denies any recent head injuries. She denies any fever chills or sinus pressure. No focal neurodeficits noted on exam. CT head ordered, COVID test. Differential diagnosis includes but not limited to atypical migraine, sinusitis, COVID flu. CT within normal limits. Patient reevaluation she is complaining of head throbbing. Vicodin, Flexeril and Zofran ordered. Plan is for discharge. This text was generated using [employer] dictation system, please disregard any oddities of phrase or misspellings. Medical Records Medical records reviewed: Yes I reviewed the patient's medical records. Medical records narrative: Patient had labs done yesterday had a white blood cell count of 12.89, absolute neutrophils 8.47, CMP largely within normal limits use urine test was negative, urinalysis negative for infection. Patient also requested HIV test which was negative. HPI General Mode of arrival: ambulatory. Date/Time Provider Initiated Documentation: 11/08/22 18:31. Limitations to Documentation: no limitations. Information obtained by: patient, RN notes reviewed and old records reviewed. HPI Narrative: 42-year-old female presents to the ER with a chief complaint of headache, drooling pressure and worsening headache with bending over which has been ongoing for over a week. Patient was seen here in the ER yesterday for same. She was given Compazine, had lab work done and discharge instructions. She does have a history of migraines, syphilis, PTSD, obesity, tobacco abuse and GERD and anxiety. She denies any recent head injuries. She denies any fever chills or sinus pressure. No focal neurodeficits noted on exam. Related Data Home Medications Medication Instructions Recorded Confirmed venlafaxine 75 mg capsule,extended 1 tab PO DAILY 09/15/16 05/18/22 release 24 hr (Effexor XR) albuterol sulfate 90 mcg/actuation 2 puff inhalation Q6H PRN 08/27/20 11/08/22 aerosol inhaler (Ventolin HFA) buspirone 10 mg tablet 5 mg PO TID 08/27/20 05/18/22 cariprazine 1.5 mg capsule 3 mg PO DAILY 08/27/20 05/18/22 (Vraylar) diphenhydramine HCl 25 mg tablet 25 mg PO QHS 08/27/20 05/18/22 (Allergy (diphenhydramine)) docusate sodium 100 mg capsule 100 mg PO BID 08/27/20 05/18/22 famotidine 20 mg tablet (Pepcid) 20 mg PO DAILY 08/27/20 05/18/22 lidocaine 5 % topical patch 1 patch topical DAILY 08/27/20 05/18/22 (Lidoderm) nicotine (polacrilex) 2 mg gum 2 mg buccal Q2H 08/27/20 05/18/22 (Nicorette) omeprazole 40 mg capsule,delayed 40 mg PO DAILY 08/27/20 05/18/22 release tiotropium bromide 18 mcg capsule 1 cap inhalation DAILY 08/27/20 11/08/22 with inhalation device (Spiriva with HandiHaler) esomeprazole magnesium 40 mg 40 mg PO DAILY 05/18/22 11/08/22 capsule,delayed release vilazodone 40 mg tablet (Viibryd) 40 mg PO DAILY 05/18/22 11/08/22 cariprazine 3 mg capsule (Vraylar) 1 cap PO DAILY 06/26/22 06/26/22 cyclobenzaprine 10 mg tablet 10 mg PO TID PRN muscle spasm #15 06/26/22 11/08/22 tabs diclofenac potassium 50 mg tablet 50 mg PO TID PRN pain #15 tabs 06/26/22 prochlorperazine maleate 10 mg 10 mg PO Q6H PRN #10 tabs 11/07/22 11/08/22 tablet (Compazine) gabapentin 300 mg capsule 300 mg PO TID 11/08/22 11/08/22 prazosin 1 mg capsule 2 mg PO HS 11/08/22 11/08/22 Previous Rx's Medication Instructions Recorded cyclobenzaprine 10 mg tablet 10 mg PO TID PRN muscle spasm #15 06/26/22 tabs diclofenac potassium 50 mg tablet 50 mg PO TID PRN pain #15 tabs 06/26/22 prochlorperazine maleate 10 mg 10 mg PO Q6H PRN #10 tabs 11/07/22 tablet (Compazine) Allergies Allergy/AdvReac Type Severity Reaction Status Date / Time pineapple Allergy Severe Anaphylaxis Verified 11/08/22 18:30 propranolol Allergy Severe Verified 11/08/22 18:30 mirtazapine [From Remeron] Allergy Mild Verified 11/08/22 18:30 trazodone AdvReac Mild Hallucinati Unverified 11/08/22 18:30 ons walnuts Allergy Severe Anaphylaxis Uncoded 11/08/22 18:30 Trazodone HCL Allergy Mild Uncoded 11/08/22 18:30 General Stated Complaint: Headache BETSY: 3 Review of Systems All systems reviewed & are unremarkable except as noted in HPI and below Constitutional Constitutional: Reports as per HPI and Reports headache(s) ENT Ears, Nose, Mouth, and Throat: Reports headache(s) Neurologic Neurologic: Reports headache(s) PFSH All Active Problems (Updated 11/08/22 @ 20:21 by Ni Rodriguez NP) Headache (Acute) Medical History Acquired syphilis Alcohol abuse Anxiety Bipolar 1 disorder, mixed Dysphagia GERD (gastroesophageal reflux disease) Headache History of asthma Lumbar back pain Mixed stress and urge urinary incontinence Obesity Occasional tremors Paranoia Polycythemia vera PTSD (post-traumatic stress disorder) Shortness of breath Snoring Tobacco abuse Surgical History EGD - MAC (02/18/16) Endometrial Ablation (03/28/15) Ligation of fallopian tube Singh Fundoplication 2005 Release for de Quervain's tenosynovitis of hand 2009 LEFT WRIST Vaginal hysterectomy (01/05/16) Ovary sparing Family History Maternal Aunt Neoplasm breast ca Maternal Aunt Neoplasm breast ca Social History Smoking/Tobacco Use Status: Current every day Tobacco Type: cigarettes Smoking risk assessment performed?: Yes Alcohol Intake: former Drug use: Occasionally Substance use type: former substance user, marijuana and crack/cocaine Do you feel safe at home: Yes Do you feel safe in your relationship?: Yes Exam Narrative Exam Narrative: Constitutional: Alert and oriented x3. Appears stated age. Normal body habitus. Head: Normocephalic, no trauma. Eyes: Pupils PERRL, Red reflex noted, EOM's intact. Eyelids symmetrical without lesions, discharge, or swelling. ENT: Bilateral TM's WNL, External ear normal to inspection, no mastoid TTP, swelling, or erythema, Nasal turbinates WNL, no nasal discharge. Normal dentition, Posterior pharynx WNL, no exudate. Chest: RRR, Normal S1, S2, distal pulses intact. Resp: Lungs clear to auscultation bilaterally, no wheezes, rales, or rhonchi. Abdomen: Soft, non-distended, Normoactive bowel sounds all 4 quads. Musculoskeletal: Normal gait, 5/5 strength to all four extremities. Skin: No suspicious rashes or lesions. Capillary refill less than 2 sec. Neurologic: Cranial nerves II-XII intact. Alert and oriented x 3. Motor: No deficits noted. Sensory: Intact bilaterally all 4 extremities. Reflexes: DTR's intact bilaterally.. Hematologic/Lymphatic: No ecchymosis, no lymphadenopathy. Course Vital Signs Vital signs: Vital Signs Temperature 37.1 C 11/08/22 18:22 Pulse 67 11/08/22 18:22 Respiratory Rate 18 11/08/22 18:22 Pulse Oximetry 95 11/08/22 18:22 Temperature 37.1 C 11/08/22 18:22 Pulse 67 11/08/22 18:22 Respiratory Rate 18 11/08/22 18:22 Respiratory Effort Normal, Non-Labored 11/08/22 18:23 Blood Pressure 117/79 11/08/22 18:23 Pulse Oximetry 95 11/08/22 18:22 Oxygen Delivery Method Room Air 11/08/22 18:22 Oxygen Flow Rate 0 11/08/22 18:22 Pain Level 9 11/08/22 18:26
--- NOTE | 2022-11-08 19:41 | DI.VRAD_ITS ---
PROCEDURE INFORMATION: Exam: CT Head Without Contrast Exam date and time: 11/08/2022 7:16 PM Age: 42 years old Clinical indication: Dizziness and other: Headache; Patient HX: Dizziness, headache TECHNIQUE: Imaging protocol: Computed tomography of the head without contrast. Radiation optimization: All CT scans at this facility use at least one of these dose optimization techniques: automated exposure control; mA and/or kV adjustment per patient size (includes targeted exams where dose is matched to clinical indication); or iterative reconstruction. COMPARISON: CT HEAD AND CSPINE W/O CONTRAST 05/05/2017 10:13 PM FINDINGS: Brain: Cerebrum is unremarkable. Carver-white matter differentiation is intact. No mass lesion is seen. No mass effect or midline shift. Thalamus is unremarkable. No evidence of hemorrhage. Cerebellum is unremarkable. No posterior fossa mass lesion or mass effect. No pathologic edema. No evidence of cerebellar hemorrhage. Brainstem is unremarkable. No evidence of pontine hemorrhage. No mass effect on the brainstem. Cerebral ventricles: No ventriculomegaly. Paranasal sinuses: Visualized sinuses are unremarkable. No fluid levels. Mastoid air cells: Visualized mastoid air cells are well aerated. Bones/joints: Unremarkable. No acute fracture. Soft tissues: Unremarkable. IMPRESSION: No evidence of pathology. Dictated and Authenticated by: Walter Pike MD. Ordering:YRIS Dan MD
[2022-11-08] MEDS: Cyclobenzaprine 10 MG TAB PO (20:17)
[2022-11-08] MEDS: HYDROcodone 5/Acetaminophen 325 TAB PO (20:17)
[2022-11-08] MEDS: Ondansetron O.D.T. 4 MG TABEF PO (20:17)
== END 2022-11-08 20:47 | disposition home or self-care (01) ==
PROVIDERS: Emergency Provider Registered Nurse Emergency; PCP Nurse Practitioner Family
DX: R51.9 Headache, unspecified (principal); F17.210 Nicotine dependence, cigarettes, uncomplicated; F41.9 Anxiety disorder, unspecified
CPT/HCPCS: 99284; 87426; 99283; 70450

== ENCOUNTER 2022-11-09 20:32 | Observation (INO) | payer MEDICARE, MEDICAID, SELFPAY ==
[2022-11-09] VITALS (28 sets, daily range): BP systolic 114–136; BP diastolic 48–97; PULSE 62–91; RESP 9–30; TEMP 36.8; O2SAT 89–100
[2022-11-09 21:04] LABS: Abs Immature Grans 0.05 10^3/uL (0.0-0.06); Absolute Basophil Count 0.14 10^3/uL (0.0-0.2); Absolute Lymphocyte Count 4.12 10^3/uL (1.2-3.4); Absolute Neutrophil Count 6.65 10^3/uL (1.2-6.7); Basophils % 1.1; Eosinophils % 3.2; HGB 14.5 g/dL (11.2-15.7); Immature Grans % 0.4; Lymphocytes % 33.1; MCH 29.8 pg (27.0-33.0); MCV 91 fL (80-95); Monocytes % 8.8; Neutrophils % 53.4; Platelet Count 350 10^3/uL (130-400); RBC 4.86 10^6/uL (3.93-5.22); RDW 13.8 % (11.7-14.6); RDW-SD 46.5 fL; WBC 12.46 10^3/uL (4.4-10.8)
[2022-11-09] MEDS: Normal Saline 500 ML IV (21:04)
[2022-11-09] MEDS: diazePAM 10 MG/2 ML SYR 5 MG IVP (21:04)
[2022-11-09 21:10] LABS: ESR 16 mm/hr (0-20)
[2022-11-09] MEDS: Ondansetron 4 MG/2 ML VIAL (21:16)
[2022-11-09 21:22] LABS: ALT 23 U/L (14-59); AST 14 U/L (15-37); Albumin 3.8 g/dL (3.4-5.0); Alkaline Phosphatase 86 U/L (46-116); Anion Gap 8.5 mmol/L (3-11); BUN 6 mg/dL (7-18); Bilirubin, Total 0.2 mg/dL (0.2-1.0); CO2 28.5 mmol/L (21.0-32.0); CREATININE 0.9 mg/dL (0.55-1.02); Calcium 9.1 mg/dL (8.5-10.1); Chloride 103 mmol/L (98-107); Estimated GFR 82.37 (mL/min/1.73m2); Glucose 84 mg/dL (74-106); Potassium 3.8 mmol/L (3.5-5.1); Sodium 140 mmol/L (136-145); Total Protein 7.7 g/dL (6.4-8.2)
[2022-11-09 21:31] LABS: C-Reactive Protein 0.36 mg/dL (0.0-0.3)
[2022-11-09] MEDS: diazePAM 10 MG/2 ML SYR (22:08)
[2022-11-09] MEDS: HYDROmorphone 2 MG/ML SYR (22:21)
--- NOTE | 2022-11-09 22:21 | NUR.NOTE ---
MD Arizmendi gave verbal order for second dose of 5mg IVP valium, 4mg IVP zofran, and 1mg IVP Dilaudid. All meds documented appropriately on AUG.
[2022-11-09 22:27] LABS: Glucose (CSF) 56 mg/dL (40-70); Total Protein (CSF) 42 mg/dL (15-45)
[2022-11-09 22:45] LABS: Clarity Clear; RBC 0 /mm3 (0-5); Tube # 4; Xanthochromia Absent
[2022-11-09 22:47] LABS: WBC 2 /uL (0-5)
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
[2022-11-10] VITALS (23 sets, daily range): BP systolic 102–122; BP diastolic 51–69; PULSE 62–89; RESP 14–30; TEMP 36.2–36.7; O2SAT 92–97
[2022-11-10] MEDS: methylPREDNISolone SUCC 125 MG VIAL IVP (00:04)
[2022-11-10] MEDS: chlorproMAZINE 25 MG/ML AMP IM (00:37)
[2022-11-10 01:26] LABS: COVID-19 PCR Negative (Negative); Influenza A PCR Negative (Negative); Influenza B PCR Negative (Negative); RSV PCR Negative (Negative)
[2022-11-10 01:34] LABS: Lab Add On Test DONE
[2022-11-10 01:43] LABS: Magnesium 1.7 mg/dL (1.8-2.4)
[2022-11-10 01:43] LABS: Source Nasopharynx
--- NOTE | 2022-11-10 02:19 | HPE_ITS ---
Date of service: 11/10/22 Time of Service: 02:19 Assessment and Plan Assessment and plan (1) Headache: Status: Acute Assessment and plan: Ddx: Migraine, Pseudotumor cerebri, aneurysm, herpes encephalitis, tick-borne illness, brain tumor, medication side effect, consequence of poor sleep/sleep apnea. Continue acyclovir initiated in ED; await LP studies. Will add toradol to the regimen of prn IV dilaudid, compazine, magnesium. Will replete her magnesium. Ensure no respiratory process- check CXR. Check procalcitonin. C/s neurology in am. Check UDS. May require further imaging such as MRI, angiography. (2) Hypomagnesemia: Status: Acute Assessment and plan: Replete, recheck in am (3) Phonophobia: Status: Acute Assessment and plan: Due to above; as above (4) Photophobia: Status: Acute Assessment and plan: Due to above; as above (5) DVT prophylaxis: Status: Acute Assessment and plan: SCDs. Holding off chemical DVT ppx given recent LP. (6) Discharge planning issues: Status: Acute Assessment and plan: Full code History of Present Illness History of Present Illness Chief Complaint: Headache Narrative: Ms Merino is a 42 year old female with PMHx of migraines, h/o neurosyphilis s/p treatment, h/o herpes, asthma, anxiety/PTSD, bipolar 1 d/o, who presented to [facility] ED for the third time in three days c/o progressively worsening headache accompanied by photo and phonophobia. When she came to the ED on 11/07/22, she was treated with tylenol, compazine, and fluids for a presumed migraine with good effect, per ER provider note, and was discharged home. She returned on 11/08/22 c/o worsening headache, feeling like she was drooling (which she wasn't), with headache worsening when bending over. She had a negative CT of the head (dry). This time, she was treated with vicodin, flexeril, and zofran and discharged home. On Both of these visits, the patient appeared non-meningeal and reported the headache as frontal. When she returned to the ED on 11/09/22, she reported that the headache had gotten worse, that it had now moved to the back of the head, that the patient now felt out of it. She continued to report feeling like she is drooling. She hasn't been able to sleep and has been anxious. She reportedly had slowed rapid alternating movements. ER provider felt she had nuchal achiness and performed an LP. He was not able to obtain opening pressures. Her CSF analysis was not c/w a bacterial process. She was not able to cooperate with a fundoscopic exam due to photosensitivity. Her intraoccular pressure was normal. She was treated with valium, IV dilaudid, methylprednisolone, thorazine, and was initiated on acyclovir empirically. Hospitalist admission was requested. When I came to examine the patient, she is asleep. It is difficult to wake her up to the point where she completes a sentence. She does states she has a slight headache and that it is behind her left eye. She does not answer my questions about sensitivity to light, sound, or nausea. She does not answer my questions about neck pain. I have a headache and I just want to sleep. She states she hasn't drunk alcohol in a year. Review of Systems All systems reviewed & are unremarkable except as noted in HPI and below PFSH All Active Problems (Updated 11/10/22 @ 02:47 by Elizabeth Lyn MD) Discharge planning issues (Acute) DVT prophylaxis (Acute) Photophobia (Acute) Phonophobia (Acute) Hypomagnesemia (Acute) Headache (Acute) Medical History Acquired syphilis Alcohol abuse Anxiety Bipolar 1 disorder, mixed Dysphagia GERD (gastroesophageal reflux disease) Headache History of asthma Lumbar back pain Mixed stress and urge urinary incontinence Obesity Occasional tremors Paranoia Polycythemia vera PTSD (post-traumatic stress disorder) Shortness of breath Snoring Tobacco abuse Surgical History EGD - MAC (02/18/16) Endometrial Ablation (03/28/15) Ligation of fallopian tube Singh Fundoplication 2005 Release for de Quervain's tenosynovitis of hand 2009 LEFT WRIST Vaginal hysterectomy (06/17/15) Ovary sparing Family History Maternal Aunt Neoplasm breast ca Maternal Aunt Neoplasm breast ca Social History Smoking/Tobacco Use Status: Current every day Tobacco Type: cigarettes Smoking risk assessment performed?: Yes Alcohol Intake: former Drug use: Occasionally Substance use type: former substance user, marijuana and crack/cocaine Do you feel safe at home: Yes Do you feel safe in your relationship?: Yes Meds Allergies and Home Medications Allergies Allergy/AdvReac Type Severity Reaction Status Date / Time pineapple Allergy Severe Anaphylaxis Verified 11/08/22 18:30 propranolol Allergy Severe Verified 11/08/22 18:30 mirtazapine [From Remeron] Allergy Mild Verified 11/08/22 18:30 trazodone AdvReac Mild Hallucinati Unverified 11/08/22 18:30 ons walnuts Allergy Severe Anaphylaxis Uncoded 11/08/22 18:30 Trazodone HCL Allergy Mild Uncoded 11/08/22 18:30 Home Medications Medication Instructions Recorded Confirmed Type venlafaxine 75 mg capsule,extended 1 tab PO DAILY 09/15/16 05/18/22 History release 24 hr (Effexor XR) albuterol sulfate 90 mcg/actuation 2 puff inhalation Q6H PRN 08/27/20 11/08/22 History aerosol inhaler (Ventolin HFA) buspirone 10 mg tablet 5 mg PO TID 08/27/20 05/18/22 History cariprazine 1.5 mg capsule 3 mg PO DAILY 08/27/20 05/18/22 History (Vraylar) diphenhydramine HCl 25 mg tablet 25 mg PO QHS 08/27/20 05/18/22 History (Allergy (diphenhydramine)) docusate sodium 100 mg capsule 100 mg PO BID 08/27/20 05/18/22 History famotidine 20 mg tablet (Pepcid) 20 mg PO DAILY 08/27/20 05/18/22 History lidocaine 5 % topical patch 1 patch topical DAILY 08/27/20 05/18/22 History (Lidoderm) nicotine (polacrilex) 2 mg gum 2 mg buccal Q2H 08/27/20 05/18/22 History (Nicorette) omeprazole 40 mg capsule,delayed 40 mg PO DAILY 08/27/20 05/18/22 History release tiotropium bromide 18 mcg capsule 1 cap inhalation DAILY 08/27/20 11/08/22 History with inhalation device (Spiriva with HandiHaler) esomeprazole magnesium 40 mg 40 mg PO DAILY 05/18/22 11/08/22 History capsule,delayed release vilazodone 40 mg tablet (Viibryd) 40 mg PO DAILY 05/18/22 11/08/22 History cariprazine 3 mg capsule (Vraylar) 1 cap PO DAILY 06/26/22 06/26/22 History cyclobenzaprine 10 mg tablet 10 mg PO TID PRN muscle spasm #15 06/26/22 11/08/22 Rx tabs diclofenac potassium 50 mg tablet 50 mg PO TID PRN pain #15 tabs 06/26/22 Rx prochlorperazine maleate 10 mg 10 mg PO Q6H PRN #10 tabs 11/07/22 11/08/22 Rx tablet (Compazine) gabapentin 300 mg capsule 300 mg PO TID 11/08/22 11/08/22 History prazosin 1 mg capsule 2 mg PO HS 11/08/22 11/08/22 History Exam Narrative Exam Narrative: General: Somnolent obese female who is slurring words, falls asleep in midsentence, does not permit a full physical exam Neurological: Somnolent, arousable, slurring words, falls promptly back asleep, able to move all 4 extremities, not permitting a full exam Psychiatric: difficult to assess given mental status Skin: Visible skin intact HEENT: Atraumatic, normocephalic, The patient does not open eyes for me to assess her EOM, not permitting oropharyngeal exam, visible MMM, no submandibular or cervical lymphadenopathy, no goiter or JVD Cardiovascular: RRR, no m/r/g Lungs: CTAB, coughing Gastrointestinal: soft, obese, nontender Genitourinary: deferred Extremities: no edema BLEs, appear symmetric Results Imaging Additional studies: No new imaging obtained. CT head 11/08/22: No acute intracranial findings on this noninfused CT scan of the brain. Labs 11/09/22 20:55 11/09/22 20:55 Labs: Laboratory Results - last 24 hr 11/09/22 11/09/22 11/09/22 20:55 20:55 20:55 WBC RBC Hgb Hct MCV MCH MCHC RDW Plt Count MPV Immature Gran % Neutrophils % Lymphocytes % Monocytes % Eosinophils % Basophils % Nucleated RBC % Absolute Neutrophils Absolute Lymphocytes Absolute Monocytes Absolute Eosinophils Absolute Basophils Xanthochromia ESR 16 VBG Lactate Sodium 140 Potassium 3.8 Chloride 103 Carbon Dioxide 28.5 Anion Gap 8.5 BUN 6 L Creatinine 0.9 Est GFR (CKD-EPI 2020) 82.37 Glucose 84 Calcium 9.1 Magnesium 1.7 L Total Bilirubin 0.2 AST 14 L ALT 23 Alkaline Phosphatase 86 C-Reactive Protein 0.36 H Total Protein 7.7 Albumin 3.8 CSF Tube Number CSF Color CSF Clarity CSF WBC CSF RBC CSF Diff Comment CSF Glucose CSF Total Protein COVID-19 Source SARS-CoV-2 (PCR) Influenza Type A (PCR) Influenza Type B (PCR) RSV (PCR) Add-On Test Request 11/09/22 11/09/22 11/09/22 20:55 20:55 22:04 WBC 12.46 H RBC 4.86 Hgb 14.5 Hct 44.0 MCV 91 MCH 29.8 MCHC 33.0 RDW 13.8 Plt Count 350 MPV 10.0 Immature Gran % 0.4 Neutrophils % 53.4 Lymphocytes % 33.1 Monocytes % 8.8 Eosinophils % 3.2 Basophils % 1.1 Nucleated RBC % 0.0 Absolute Neutrophils 6.65 Absolute Lymphocytes 4.12 H Absolute Monocytes 1.10 H Absolute Eosinophils 0.40 Absolute Basophils 0.14 Xanthochromia ESR VBG Lactate 1.0 Sodium Potassium Chloride Carbon Dioxide Anion Gap BUN Creatinine Est GFR (CKD-EPI 2020) Glucose Calcium Magnesium Total Bilirubin AST ALT Alkaline Phosphatase C-Reactive Protein Total Protein Albumin CSF Tube Number CSF Color CSF Clarity CSF WBC CSF RBC CSF Diff Comment CSF Glucose 56 CSF Total Protein 42 COVID-19 Source SARS-CoV-2 (PCR) Influenza Type A (PCR) Influenza Type B (PCR) RSV (PCR) Add-On Test Request 11/09/22 11/10/22 11/10/22 22:04 00:10 00:10 WBC RBC Hgb Hct MCV MCH MCHC RDW Plt Count MPV Immature Gran % Neutrophils % Lymphocytes % Monocytes % Eosinophils % Basophils % Nucleated RBC % Absolute Neutrophils Absolute Lymphocytes Absolute Monocytes Absolute Eosinophils Absolute Basophils Xanthochromia Absent ESR VBG Lactate Sodium Potassium Chloride Carbon Dioxide Anion Gap BUN Creatinine Est GFR (CKD-EPI 2020) Glucose Calcium Magnesium Total Bilirubin AST ALT Alkaline Phosphatase C-Reactive Protein Total Protein Albumin CSF Tube Number 4 CSF Color Colorless CSF Clarity Clear CSF WBC 2 CSF RBC 0 CSF Diff Comment CSF Glucose CSF Total Protein COVID-19 Source SARS-CoV-2 (PCR) Influenza Type A (PCR) Influenza Type B (PCR) RSV (PCR) Add-On Test Request Cancelled DONE 11/10/22 00:19 WBC RBC Hgb Hct MCV MCH MCHC RDW Plt Count MPV Immature Gran % Neutrophils % Lymphocytes % Monocytes % Eosinophils % Basophils % Nucleated RBC % Absolute Neutrophils Absolute Lymphocytes Absolute Monocytes Absolute Eosinophils Absolute Basophils Xanthochromia ESR VBG Lactate Sodium Potassium Chloride Carbon Dioxide Anion Gap BUN Creatinine Est GFR (CKD-EPI 2020) Glucose Calcium Magnesium Total Bilirubin AST ALT Alkaline Phosphatase C-Reactive Protein Total Protein Albumin CSF Tube Number CSF Color CSF Clarity CSF WBC CSF RBC CSF Diff Comment CSF Glucose CSF Total Protein COVID-19 Source Nasopharynx SARS-CoV-2 (PCR) Negative Influenza Type A (PCR) Negative Influenza Type B (PCR) Negative RSV (PCR) Negative Add-On Test Request Last Vital Signs Temp 36.8 C 11/09/22 20:34 Pulse 72 11/10/22 02:01 Resp 15 11/10/22 02:01 BP 105/56 L 11/10/22 02:01 Pulse Ox 96 11/10/22 02:01 Time Spent Time spent with Patient: 55-74 minutes Time was spent: preparing to see the patient(eg.review tests), obtaining and/or reviewing separately otained hiistory, ordering medications,tests, procedures, referring, communicating with other health transitional care manager, indepentently interpreting results, counseling the patient and care coordination
[2022-11-10] MEDS: MAGNESIUM SULFATE 2 GM/50 ML BAG IVPB (03:06)
[2022-11-10 03:48] LABS: Lab Add On Test DONE
[2022-11-10 04:30] LABS: Procalcitonin < 0.1 ng/mL
[2022-11-10] MEDS: Ketorolac 15 MG/ML VIAL IVP ×2 (05:11→16:04)
[2022-11-10] MEDS: Lactated Ringers 1,000 ML 150 ML IV ×2 (05:15→13:44)
[2022-11-10] MEDS: HYDROmorphone 2 MG/ML SYR 1 MG IVP (05:22)
[2022-11-10 07:11] LABS: Abs Immature Grans 0.08 10^3/uL (0.0-0.06); Absolute Basophil Count 0.07 10^3/uL (0.0-0.2); Absolute Eosinophil Count 0.01 10^3/uL (0.0-0.7); Absolute Lymphocyte Count 0.83 10^3/uL (1.2-3.4); Absolute Neutrophil Count 12.05 10^3/uL (1.2-6.7); Basophils % 0.5; Eosinophils % 0.1; HCT 41.4 % (36.0-46.0); HGB 13.6 g/dL (11.2-15.7); Immature Grans % 0.6; Lymphocytes % 6.3; MCH 30.1 pg (27.0-33.0); MCHC 32.9 % (32.0-36.0); MCV 92 fL (80-95); MPV 10.5 fL (8.0-11.0); Monocytes % 0.8; Neutrophils % 91.7; Platelet Count 311 10^3/uL (130-400); RBC 4.52 10^6/uL (3.93-5.22); RDW-SD 47.4 fL; WBC 13.14 10^3/uL (4.4-10.8)
[2022-11-10 07:16] LABS: Absolute Monocyte Count 0.11 10^3/uL (0.1-0.8)
[2022-11-10 07:26] LABS: Anion Gap 10.1 mmol/L (3-11); BUN 7 mg/dL (7-18); CO2 25.9 mmol/L (21.0-32.0); Calcium 8.5 mg/dL (8.5-10.1); Chloride 106 mmol/L (98-107); Estimated GFR 72.58 (mL/min/1.73m2); Glucose 188 mg/dL (74-106); Magnesium 1.7 mg/dL (1.8-2.4); Potassium 3.6 mmol/L (3.5-5.1); Sodium 142 mmol/L (136-145)
--- NOTE | 2022-11-10 08:19 | W.NEUROCONSU ---
Date of service: 11/10/22 Time of Service: 15:57 Assessment and Plan Assessment and plan (1) Status migrainosus: Status: Acute Assessment and plan: Ms. Merino presents with status migrainosus. Work-up including MRI brain and CSF testing negative. She has a mild leukocytosis, but has had same in past when not ill. Initial syphilis testing positive, but could be due to prior positivity. RPR and CSF VDRL pending. Could consider testing for EBV. She has significant stessors in her life. She did not want to discuss them with me. Despite current 8-910 headache, she is unsure if she wants to stay for further treatment of her headaches. She also didn't want to discuss options with me at this time. Wanted to instead get a cigarette and be by herself.... If she stays inpatient, would continue: -IVF bolus 1 L q8hr (or continuous 150% maintenance) - please monitor for volume overload -IV 1gm Mg infusion q8hr (infusion should be fast, i.e. 20 minutes or less) -50mg Doxepin PO q6hr with 50mg PO Vistaril q6hr (if this does not make them sleep, can increase doses; if paradoxical effect, i.e. makes them hyper use Trazadone 50mg q6hr instead) - given numerous mood medications, be careful with interactions if this is started; consider EKG/telemetry first) For breakthrough headaches between above doses, she can be given any of the following for rescue: -IV 25mg Benadryl/IV 10mg Compazine combo +/- 10mg IV Toradol - can be repeated every 8 hours -IV Depacon (500mg); repeat in 30 minutes if headache persists, max 4 doses in 24hour period - IV Solu-Medrol (1000mg) or IV dexamethasone (4-16 mg) If no significant improvement with above by tomorrow am, I recommend DHE if it available as per Tim protocol: -Get a baseline EKG. If any evidence of CAD, then no DHE. DHE is given q8hr IV. -First dose: IV Reglan 10mg followed 10 min later by 0.5mg IV DHE. -Second dose: -Nausea with first dose: IV Reglan 10mg followed 10 min later by 0.5mg IV DHE -No nausea with first dose: IV Reglan 10mg followed 10 min later by 0.75mg IV DHE. -Third dose: -Nausea with second dose: 0.5mg IV DHE, no Reglan. -No nausea with second dose: IV Reglan 10mg followed 10 min later by 1.0mg IV DHE. -Further doses: Ok to continue q8hr up to 3 days total. After the 3rd dose, no more Reglan is given. If they had nausea with the 3rd dose, reduce them down to 0.75mg IV DHE, otherwise, continue the 1mg dosing schedule. If she opts to go home, we discussed limited options. She was already planning to start amitriptyline 50mg HS which she should do as this will also help prevent headaches. Would also do Depakote 250mg PO TID x 1 week to try and break the cycle along with Prochloroperazine 10mg q8hr prn. Additionally, she was already on gabapentin 300mg TID prior. We will arrange to have her f/up in the neurology clinic next week. I gave her my card so that she can keep us updated. History of Present Illness History of Present Illness Chief Complaint: headache Narrative: Handedness: right. HPI: Ms. Merino is a 42 year-old with Bipolar disorder, PTSD, anxiety, headaches, GERD, prior ETOH abuse, prior syphilis. She notes that she is quite irritated at the time of my visit and isn't really interested in discussing her symptoms. She notes significant stressors at home. She was first seen in our ER on 11/07/22 with 1 week of intractable headache to her usual OTC medications. She was treated with IVF, Compazine, and APAP with improvement and discharged to home. She returned to the ER on 11/08/22 with continued headache. This time she was treated with Vicodin, Flexeril, and Zofran per report. She was discharged to home with improvement. She returned again to the ER on 11/09/22 with continued FARAH and admitted overnight. In the ER she was treated with diazepam, Solumedrol, and Dilaudid. She was able to sleep overnight. This am reported improvement to 3/10 headache. This afternoon unfortunately FARAH has increased to 8-9/10. Notes this was better than yesterday which she rated 12/10. She has undergone the work-up as below. Her headache is bifrontal, but also concentrated over the L orbit. She drinks 3-4 large coffees daily. She has chronic insomnia sleeping 4-8hr per night. She notes that she is supposed to be starting amitriptyline 50mg HS Rx'd by PCP to help with sleep. And stop prazosin which hasn't helped. She notes prior to this week, usual frequency of FARAH as 1-2x/month which resolve with either sleep or OTC medications. She notes a remote history of frequent HAs 10-15 years ago for which she was tried on numerous medications without improvement. I was able to review her [facility] [place]. She was seen by neurology x1 in November 2015 for headaches that were daily but reduced to QOD after stopping ibuprofen. She was not interested in medications at that time. -Preventative medications: propranolol (ADRs), gabapentin, venlafaxine -Rescue medications: excedrin, ibuprofen, sumatriptan, Compazine Work-up: -Labs (11/07/22): W 12.89, HIV neg, Syphilis screen + with RPR pending. UA neg. -CTH (11/07/22): unremarkable. I reviewed these images personally and this is my personal interpretation. -Labs (11/08/22): W 12.46. -Labs (11/09/22): W 13.14, ESR 16, CRP 0.36, Mag 1.7, procal <0.1, Urine Hcg neg -CSF (11/10/22): Opening pressure not recorded. W2/R0. . CSF VDRL pending. -MRI brain w/o (11/10/22): unremarkable. I reviewed these images personally and this is my personal interpretation. PFSH All Active Problems (Updated 11/10/22 @ 08:19 by Magaly De La Cruz MD) Status migrainosus (Acute) Discharge planning issues (Acute) DVT prophylaxis (Acute) Photophobia (Acute) Phonophobia (Acute) Hypomagnesemia (Acute) Headache (Acute) Medical History Acquired syphilis Alcohol abuse Anxiety Bipolar 1 disorder, mixed Dysphagia GERD (gastroesophageal reflux disease) Headache History of asthma Lumbar back pain Mixed stress and urge urinary incontinence Obesity Occasional tremors Paranoia Polycythemia vera PTSD (post-traumatic stress disorder) Shortness of breath Snoring Tobacco abuse Surgical History EGD - MAC (02/18/16) Endometrial Ablation (03/28/15) Ligation of fallopian tube Singh Fundoplication 2005 Release for de Quervain's tenosynovitis of hand 2009 LEFT WRIST Vaginal hysterectomy (06/17/15) Ovary sparing Family History Maternal Aunt Neoplasm breast ca Maternal Aunt Neoplasm breast ca Social History Smoking/Tobacco Use Status: Current every day Tobacco Type: cigarettes Smoking risk assessment performed?: Yes Alcohol Intake: former Drug use: Occasionally Substance use type: former substance user, marijuana and crack/cocaine Do you feel safe at home: Yes Do you feel safe in your relationship?: Yes Visit Medication and Allergies Active Medications Generic Name Dose Route Start Last Admin Trade Name Freq PRN Reason Stop Dose Admin Acetaminophen 0 mg 11/10/22 00:21 Acetaminophen 325 Mg Tab PO Q4H PRN PRN Al Hydrox/Mg Hydrox/Simethicone 30 ml 11/10/22 00:21 Mylanta Suspension 30 Ml Cup PO Q2H PRN PRN Albuterol Sulfate 2 puff 11/10/22 07:32 Albuterol Hfa 8 Gm 60 Puff Inh IH Q6H PRN PRN Cyclobenzaprine HCl 10 mg 11/10/22 07:41 Cyclobenzaprine 10 Mg Tab PO TID PRN PRN muscle spasm Device 1 each 11/10/22 04:00 Inhaler, Assist Device MC DIRECTED LEENA Dimethicone/Zinc Oxide 0 gm 11/10/22 00:13 Alberto Protect Cream 142 Gm Tube TP PRN PRN Docusate Sodium 100 mg 11/10/22 00:21 Docusate Sodium 100 Mg Cap PO TID PRN PRN Esomeprazole Magnesium 40 mg 11/10/22 08:30 Esomeprazole 40 Mg Capcr PO DAILY LEENA Gabapentin 300 mg 11/10/22 08:30 Gabapentin 300 Mg Cap PO TID LEENA Hydromorphone HCl 1 mg 11/10/22 00:21 11/10/22 05:22 Hydromorphone 2 Mg/Ml Syr IVP 1 mg Q2H PRN PRN Administration Sodium Chloride 500 mls @ 0 mls/hr 11/10/22 00:18 Saline 500ml Bag IV PRN PRN As Directed Ringer's Solution 1,000 mls @ 150 mls/hr 11/10/22 00:30 11/10/22 05:15 IV 150 mls/hr INFUSION [facility] Administration Acyclovir Sodium 600 mg/ 250 mls @ 250 mls/hr 11/10/22 08:00 Sodium Chloride IVPB Q8H [facility] IV Miscellaneous Supplies 1 each 11/10/22 00:30 Iv Access IV DIRECTED [facility] Ketorolac Tromethamine 15 mg 11/10/22 03:03 11/10/22 05:11 Ketorolac 15 Mg/Ml Vial IVP 11/15/22 03:02 15 mg Q6H PRN PRN Administration Lorazepam 1 mg 11/10/22 02:45 Lorazepam 2 Mg/Ml Vial IVP Q6H PRN PRN Magnesium Hydroxide 30 ml 11/10/22 00:21 Milk Of Magnesia 30 Ml Cup PO DAILY PRN PRN Magnesium Oxide 400 mg 11/10/22 08:30 Magnesium Oxide 400 Mg Tab PO DAILY [facility] Prazosin HCl 2 mg 11/10/22 22:00 Prazosin 1 Mg Cap PO HS [facility] Prochlorperazine Edisylate 10 mg 11/10/22 03:07 Prochlorperazine 10 Mg/2 Ml Vial IVP Q4H PRN PRN Sodium Chloride 0 ml 11/10/22 00:18 Normal Saline Flush 10 Ml Syr IVP PRN PRN Tiotropium [place] 2 puff 11/10/22 08:30 Tiotropium [place]-Respimat 10 Puff Inh IH DAILY [facility] Vilazodone HCl 40 mg 11/10/22 08:30 Vilazodone 40 Mg Tab PO DAILY [facility] Allergies pineapple Allergy (Severe, Verified 11/08/22 18:30) Anaphylaxis propranolol Allergy (Severe, Verified 11/08/22 18:30) mirtazapine [From Remeron] Allergy (Mild, Verified 11/08/22 18:30) trazodone Adverse Reaction (Mild, Unverified 11/08/22 18:30) Hallucinations walnuts Allergy (Severe, Uncoded 11/08/22 18:30) Anaphylaxis Trazodone HCL Allergy (Mild, Uncoded 11/08/22 18:30) Exam Narrative Exam Narrative: Physical Exam: Somewhat minimal exam as patient was agitated/angry and did not want further care/discussion Gen: Patient of apparent stated age, irritated Head and face: no facial or cranial abnormalities Neck: Supple, no meningismus, no occipital tenderness CV: + S1, S2, RRR, no murmur Resp: CTA B/L Abd: soft, nontender, nondistended Ext: No edema. No clubbing or cyanosis. No bony deformity. Neuro Exam: Language: fluency, naming, repetition, and comprehension intact; Mental Status: AAOx3, current events intact, fund of knowledge intact; Speech: no dysarthria Cranial nerves: Funduscopy: not perfromed CN II: visual holly intact CN III, IV, : extraocular movements intact, no nystagmus, pupils symmetric and reactive to light CN V: face sensation intact to LT CN VII: no facial asymmetry noted CN VIII: hearing intact bilaterally CN IX, X: palate rises symmetrically CN XI: trapezius/SCM 5/5 bilaterally CN XII: protrudes tongue symmetrically Sensory: intact to LT in all extremities Motor: bulk and tone intact. Fine motor movements intact bilaterally. No pronator drift. Strength 5/5 throughout including the deltoids, biceps, triceps, wrist extensors, hip flexors, knee flexors, knee extensors, ankle flexors, and ankle extensors (though had to be coached to put effort in). Reflexes: 2+ at the biceps, triceps, brachioradialis, patella, and achilles tendons bilaterally; toes down going bilaterally; Coordination: FTN and HTS intact bilaterally Gait: normal gait; Results Last Vital Signs Temp 97.7 F 11/10/22 07:31 Pulse 85 11/10/22 07:31 Resp 16 11/10/22 07:31 BP 107/64 11/10/22 07:31 Pulse Ox 95 11/10/22 07:31 Labs 11/10/22 06:15 11/10/22 06:15 Labs: Laboratory Results - last 24 hr 11/09/22 11/09/22 11/09/22 20:55 20:55 20:55 WBC RBC Hgb Hct MCV MCH MCHC RDW Plt Count MPV Immature Gran % Neutrophils % Lymphocytes % Monocytes % Eosinophils % Basophils % Nucleated RBC % Absolute Neutrophils Absolute Lymphocytes Absolute Monocytes Absolute Eosinophils Absolute Basophils Xanthochromia ESR 16 VBG Lactate Sodium 140 Potassium 3.8 Chloride 103 Carbon Dioxide 28.5 Anion Gap 8.5 BUN 6 L Creatinine 0.9 Est GFR (CKD-EPI 2020) 82.37 Glucose 84 Calcium 9.1 Magnesium 1.7 L Total Bilirubin 0.2 AST 14 L ALT 23 Alkaline Phosphatase 86 C-Reactive Protein 0.36 H Total Protein 7.7 Albumin 3.8 Procalcitonin CSF Tube Number CSF Color CSF Clarity CSF WBC CSF RBC CSF Diff Comment CSF Glucose CSF Total Protein COVID-19 Source SARS-CoV-2 (PCR) Influenza Type A (PCR) Influenza Type B (PCR) RSV (PCR) Add-On Test Request 11/09/22 11/09/22 11/09/22 20:55 20:55 20:55 WBC 12.46 H RBC 4.86 Hgb 14.5 Hct 44.0 MCV 91 MCH 29.8 MCHC 33.0 RDW 13.8 Plt Count 350 MPV 10.0 Immature Gran % 0.4 Neutrophils % 53.4 Lymphocytes % 33.1 Monocytes % 8.8 Eosinophils % 3.2 Basophils % 1.1 Nucleated RBC % 0.0 Absolute Neutrophils 6.65 Absolute Lymphocytes 4.12 H Absolute Monocytes 1.10 H Absolute Eosinophils 0.40 Absolute Basophils 0.14 Xanthochromia ESR VBG Lactate 1.0 Sodium Potassium Chloride Carbon Dioxide Anion Gap BUN Creatinine Est GFR (CKD-EPI 2020) Glucose Calcium Magnesium Total Bilirubin AST ALT Alkaline Phosphatase C-Reactive Protein Total Protein Albumin Procalcitonin CSF Tube Number CSF Color CSF Clarity CSF WBC CSF RBC CSF Diff Comment CSF Glucose CSF Total Protein COVID-19 Source SARS-CoV-2 (PCR) Influenza Type A (PCR) Influenza Type B (PCR) RSV (PCR) Add-On Test Request DONE 11/09/22 11/09/22 11/09/22 20:55 22:04 22:04 WBC RBC Hgb Hct MCV MCH MCHC RDW Plt Count MPV Immature Gran % Neutrophils % Lymphocytes % Monocytes % Eosinophils % Basophils % Nucleated RBC % Absolute Neutrophils Absolute Lymphocytes Absolute Monocytes Absolute Eosinophils Absolute Basophils Xanthochromia Absent ESR VBG Lactate Sodium Potassium Chloride Carbon Dioxide Anion Gap BUN Creatinine Est GFR (CKD-EPI 2020) Glucose Calcium Magnesium Total Bilirubin AST ALT Alkaline Phosphatase C-Reactive Protein Total Protein Albumin Procalcitonin < 0.1 CSF Tube Number 4 CSF Color Colorless CSF Clarity Clear CSF WBC 2 CSF RBC 0 CSF Diff Comment CSF Glucose 56 CSF Total Protein 42 COVID-19 Source SARS-CoV-2 (PCR) Influenza Type A (PCR) Influenza Type B (PCR) RSV (PCR) Add-On Test Request 11/10/22 11/10/22 11/10/22 00:10 00:10 00:19 WBC RBC Hgb Hct MCV MCH MCHC RDW Plt Count MPV Immature Gran % Neutrophils % Lymphocytes % Monocytes % Eosinophils % Basophils % Nucleated RBC % Absolute Neutrophils Absolute Lymphocytes Absolute Monocytes Absolute Eosinophils Absolute Basophils Xanthochromia ESR VBG Lactate Sodium Potassium Chloride Carbon Dioxide Anion Gap BUN Creatinine Est GFR (CKD-EPI 2020) Glucose Calcium Magnesium Total Bilirubin AST ALT Alkaline Phosphatase C-Reactive Protein Total Protein Albumin Procalcitonin CSF Tube Number CSF Color CSF Clarity CSF WBC CSF RBC CSF Diff Comment CSF Glucose CSF Total Protein COVID-19 Source Nasopharynx SARS-CoV-2 (PCR) Negative Influenza Type A (PCR) Negative Influenza Type B (PCR) Negative RSV (PCR) Negative Add-On Test Request Cancelled DONE 11/10/22 11/10/22 06:15 06:15 WBC 13.14 H RBC 4.52 Hgb 13.6 Hct 41.4 MCV 92 MCH 30.1 MCHC 32.9 RDW 14.0 Plt Count 311 MPV 10.5 Immature Gran % 0.6 Neutrophils % 91.7 Lymphocytes % 6.3 Monocytes % 0.8 Eosinophils % 0.1 Basophils % 0.5 Nucleated RBC % 0.0 Absolute Neutrophils 12.05 H Absolute Lymphocytes 0.83 L Absolute Monocytes 0.11 Absolute Eosinophils 0.01 Absolute Basophils 0.07 Xanthochromia ESR VBG Lactate Sodium 142 Potassium 3.6 Chloride 106 Carbon Dioxide 25.9 Anion Gap 10.1 BUN 7 Creatinine 1.0 Est GFR (CKD-EPI 2020) 72.58 Glucose 188 H Calcium 8.5 Magnesium 1.7 L Total Bilirubin AST ALT Alkaline Phosphatase C-Reactive Protein Total Protein Albumin Procalcitonin CSF Tube Number CSF Color CSF Clarity CSF WBC CSF RBC CSF Diff Comment CSF Glucose CSF Total Protein COVID-19 Source SARS-CoV-2 (PCR) Influenza Type A (PCR) Influenza Type B (PCR) RSV (PCR) Add-On Test Request
[2022-11-10] MEDS: Tiotropium Bromide-Respimat 10 PUFF INH 2 PUFF IH (08:20)
[2022-11-10] MEDS: LORazepam 2 MG/ML VIAL 1 MG IVP ×2 (08:40→12:11)
[2022-11-10] MEDS: Cyclobenzaprine 10 MG TAB PO (08:41)
[2022-11-10] MEDS: Esomeprazole 40 MG CAPCR PO (08:42)
[2022-11-10] MEDS: Magnesium Oxide 400 MG TAB PO (08:42)
[2022-11-10 08:43] LABS: HCG Qual (Urine) Negative
[2022-11-10] MEDS: Gabapentin 300 MG CAP PO ×2 (08:43→16:30)
--- NOTE | 2022-11-10 08:45 | DI.RAD_ITS ---
Exam(s) XR PORTABLE CHEST AP EXAM: XR PORTABLE CHEST AP CLINICAL HISTORY: cough TECHNIQUE: 2D digital imaging was performed. COMPARISON: CR PORTABLE CHEST ONE VIEW from 10/11/2016 FINDINGS: LUNGS: Linear density adjacent to right heart border consistent with atelectasis. Questionable of ad ditional linear densities left lower lung field, also could represent atelectasis. No pleural abnorm ality seen. HEART: Normal size. AORTA: Normal diameter. BONES: Unremarkable for age. Soft tissues: Unremarkable. IMPRESSION: No acute findings. DATA REPOSITORY: RADIATION DOSE DELIVERED:
[2022-11-10 08:46] LABS: *AMPHETAMINES SCREEN URINE Negative (Negative); *BARBITURATES SCREEN URINE Negative (Negative); *BENZODIAZEPINES SCREEN URINE Positive (Negative); Cannabinoids THC Negative (Negative); Cocaine Screen,Urine Negative (Negative); METHADONE URINE SCREEN Negative (Negative); OPIATES URINE SCREEN Positive (Negative)
[2022-11-10 08:53] LABS: Tricyclic Antidepressants Negative (Negative)
--- NOTE | 2022-11-10 09:46 | TELEP.MEDR_ITS ---
Date of service: 11/10/22 Time of Service: 09:46 Telepharmacy Home Med Rec Allergies Allergies: pineapple Allergy (Severe, Verified 11/08/22 18:30) Anaphylaxis propranolol Allergy (Severe, Verified 11/08/22 18:30) mirtazapine [From Remeron] Allergy (Mild, Verified 11/08/22 18:30) trazodone Adverse Reaction (Mild, Unverified 11/08/22 18:30) Hallucinations walnuts Allergy (Severe, Uncoded 11/08/22 18:30) Anaphylaxis Trazodone HCL Allergy (Mild, Uncoded 11/08/22 18:30) Interview Person Interviewed: * Patient Quality Quality of Interview/Accuracy of Medication List: Good Sources Sources used to compile medication list: popAD Medication List and SureScri[employer]Me Changes made to Home Medication List: ADDITIONS: * Levalbuterol HFA 2 puffs q6h PRN DELETIONS: * Albuterol * Buspirone * Cariprazine * Dicolfenac * Diphenhydramine * Docusate * Famotidine * Lidoderm * Omeprazole * Prazosin * Tiotropium * Venlafaxine CHANGES: * none Additional Notes Additional Notes: * Prazosin was just changed to amitriptyline yesterday. Last dose of prazosin was around Tuesday, patient had not had a chance to start amitriptyline yet Recommended Changes Recommended Changes(reason for recommendation): * Viibryd causes headaches in about 15% of patients, consider switching antidepressants. Attestation: The home medication list is now updated to the best of my knowledge and is ready to be reconciled by the provider. Please contact the [facility] Med[facility] Reconciliation Pharmacist at for any questions.
--- NOTE | 2022-11-10 09:46 | TELEP.MEDREC ---
Date of service: 11/10/22 Time of Service: 09:46 Telepharmacy Home Med Rec Allergies Allergies: pineapple Allergy (Severe, Verified 11/08/22 18:30) Anaphylaxis propranolol Allergy (Severe, Verified 11/08/22 18:30) mirtazapine [From Remeron] Allergy (Mild, Verified 11/08/22 18:30) trazodone Adverse Reaction (Mild, Unverified 11/08/22 18:30) Hallucinations walnuts Allergy (Severe, Uncoded 11/08/22 18:30) Anaphylaxis Trazodone HCL Allergy (Mild, Uncoded 11/08/22 18:30) Interview Person Interviewed: Patient Quality Quality of Interview/Accuracy of Medication List: Good Sources Sources used to compile medication list: [employer] Medication List and [employer] Mail Changes made to Home Medication List: ADDITIONS: Levalbuterol HFA 2 puffs q6h PRN DELETIONS: Albuterol Buspirone Cariprazine Dicolfenac Diphenhydramine Docusate Famotidine Lidoderm Omeprazole Prazosin Tiotropium Venlafaxine CHANGES: none Additional Notes Additional Notes: Prazosin was just changed to amitriptyline yesterday. Last dose of prazosin was around Tuesday, patient had not had a chance to start amitriptyline yet Recommended Changes Recommended Changes(reason for recommendation): Viibryd causes headaches in about 15% of patients, consider switching antidepressants. Attestation: The home medication list is now updated to the best of my knowledge and is ready to be reconciled by the provider. Please contact the TelePharmacy Medication Reconciliation Pharmacist at for any questions.
--- NOTE | 2022-11-10 10:33 | PDOC.CMIN ---
Date of service: 11/10/22 Time of Service: 10:34 Care Management Initial Assmt Initial Assessment REASON FOR HOSPITALIZATION:: Intractable headache PREVIOUS FUNCTIONAL STATUS/SOCIAL/FAMILY SUPPORTS:: Lauren lives in [facility] with her s/o. She is independent at baseline. CURRENT FUNCTIONAL STATUS:: Lauren was sitting up in her chair when CM met with her. She had a family member present, visiting. She stated that she would like to go home. Per report, Lauren will have an MRI and be seen by Neurology prior to discharge, likely later this afternoon. She stated that she just returned from the MRI, and is waiting for neurology. She stated that she will need a note to provide to her employer. Per provider, she may return to work on Tuesday if her symptoms are resolved. CM will continue to follow. ADVANCE DIRECTIVES:: None on file. CM will offer forms. Has patient been provided with info about the portal/API?: Yes Did the patient sign up for the portal?: No CODE STATUS:: Full Code INSURANCE COVERAGE / FINANCIAL ISSUES:: [facility] CURRENT HOME/COMMUNITY SERVICES/EQUIPMENT:: None PRIMARY CARE PHYSICIAN:: Saniya Pascual POTENTIAL DISCHARGE NEEDS:: Evaluations for further needs, follow up appointments. PATIENT/FAMILY EDUCATION NEEDS:: Review discharge instructions and limitations, discussion of self care needs including ask me three. ANTICIPATED BARRIERS TO DISCHARGE:: None. TRANSPORTATION:: Via private vehicle by family. PLAN:: Anticipate Lauren will return home once medically cleared. She will be driven home via private vehicle by family, and will follow up with her PCP and discharge plan of care. CM will continue to follow. PFSH All Active Problems (Updated 11/10/22 @ 08:19 by Magaly De La Cruz MD) Status migrainosus (Acute) Discharge planning issues (Acute) DVT prophylaxis (Acute) Photophobia (Acute) Phonophobia (Acute) Hypomagnesemia (Acute) Headache (Acute) Medical History Acquired syphilis Alcohol abuse Anxiety Bipolar 1 disorder, mixed Dysphagia GERD (gastroesophageal reflux disease) Headache History of asthma Lumbar back pain Mixed stress and urge urinary incontinence Obesity Occasional tremors Paranoia Polycythemia vera PTSD (post-traumatic stress disorder) Shortness of breath Snoring Tobacco abuse Surgical History EGD - MAC (02/18/16) Endometrial Ablation (03/28/15) Ligation of fallopian tube Singh Fundoplication 2005 Release for de Quervain's tenosynovitis of hand 2009 LEFT WRIST Vaginal hysterectomy (06/17/15) Ovary sparing Family History Maternal Aunt Neoplasm breast ca Maternal Aunt Neoplasm breast ca Social History Smoking/Tobacco Use Status: Current every day Tobacco Type: cigarettes Smoking risk assessment performed?: Yes Alcohol Intake: former Drug use: Occasionally Substance use type: former substance user, marijuana and crack/cocaine Do you feel safe at home: Yes Do you feel safe in your relationship?: Yes
[2022-11-10] MEDS: MAGNESIUM SULFATE 1 GM/100 ML BAG IVPB (11:14)
[2022-11-10] MEDS: Normal Saline 1,000 ML 1000 ML IV (11:14)
[2022-11-10] MEDS: Prochlorperazine 10 MG/2 ML VIAL IVP (11:15)
[2022-11-10] MEDS: Doxepin 50 MG CAP PO ×2 (11:31→16:29)
[2022-11-10] MEDS: hydrOXYzine PAMOATE 25 MG CAP 50 MG PO ×2 (11:32→16:29)
[2022-11-10] MEDS: Gadoterate meglumine 20 ML SYRINGE IVP (12:14)
[2022-11-10] MEDS: Normal Saline Flush 10 ML SYR IVP ×3 (12:15→16:04)
--- NOTE | 2022-11-10 12:30 | DI.MRI_ITS ---
Exam(s) MR BRAIN WO/W EXAM: MR BRAIN WO/W CLINICAL HISTORY: intractable migraine. TECHNIQUE: Multiplanar multisequence MRI of the brain was performed. CONTRAST MATERIAL: IV Contrast: 20 ML of Dotarem contrast administered. COMPARISON: CT CT HEAD WO from 11/08/2022 FINDINGS: VENTRICLES AND EXTRA AXIAL SPACES: Normal in size and morphology for the patient's age. HEMORRHAGE: None. CEREBRAL PARENCHYMA: No focus of restricted diffusion to suggest acute infarct. No space-occupying le carrol identified. MIDLINE SHIFT: None. BRAINSTEM/CEREBELLUM: Normal. CALVARIUM: Normal. ENHANCEMENT: No suspicious enhancement identified. VISUALIZED PARANASAL SINUSES/MASTOIDS: Clear. OTHER FINDINGS: None. IMPRESSION: Unremarkable MRI of the brain. DATA REPOSITORY:
--- NOTE | 2022-11-10 16:27 | W.PM.DS.N ---
Date of service: 11/10/22 Time of Service: 16:28 DS: Diagnosis Discharge Diagnosis (1) Status migrainosus: Status: Acute Discharge Plan Disposition Patient Disposition: Home Condition: Improving Discharge Details Reason For Visit: Intractable Headache Admit Date/Time: 11/10/22 00:16 Admit Provider: Elizabeth Lyn Attending Provider: Elizabeth Lyn [facility] Hospital Course: Ms Merino is a 42 year old female with history of migraines, neurosyphilis s/p treatment, herpes, asthma, anxiety/PTSD, bipolar 1 disorder, who presented to [facility] ED for the third time in three days progressively worsening headache accompanied by photo and phonophobia. Her work up ultimately included CT scan, LP and labs with no findings. She was treated with IV fluids, antiemetics, NSAIDS, dilaudid, and magnesium. She was admitted to hospitalist services for further evaluation and management. Her MRI was also unremarkable. she did get symptoms relief from above treatment. she was seen by neurology who made further medication recommendations. she feels her symptoms as controlled for discharge to home and is requesting discharge. she will be discharged home on one week of depakote, otherwise resume other medication. she will follwo up outpatient with Dr Victoria. discharge to home with no services. discussed with DR Flowers Home Meds and New Rx's Prescriptions: New Spiriva Respimat 2.5 mcg/actuation Mist 2 puff inhalation DAILY Qty: 0 0RF albuterol sulfate [Ventolin HFA] 90 mcg/actuation Hfa Aerosol Inhaler 2 puff inhalation Q6H PRN PRNQty: 0 0RF divalproex [Depakote] 250 mg tablet,delayed release (DR/EC) 250 mg PO TID Qty: 21 0RF Continued nicotine (polacrilex) [Nicorette] 2 mg gum 2 mg buccal Q2H PRN Patient Comments: does not use prochlorperazine maleate [Compazine] 10 mg tablet 10 mg PO Q6H PRNQty: 10 0RF gabapentin 300 mg capsule 300 mg PO TID esomeprazole magnesium 40 mg capsule,delayed release(DR/EC) 40 mg PO DAILY Patient Comments: TAKE ONE CAPSULE BY MOUTH EVERY DAY vilazodone [Viibryd] 40 mg tablet 40 mg PO DAILY cyclobenzaprine 10 mg tablet 10 mg PO TID PRN (Reason: muscle spasm) Qty: 15 0RF levalbuterol tartrate 45 mcg/actuation HFA aerosol inhaler 2 puff INHALATION Q6H PRN Patient Comments: INHALE TWO PUFFS BY MOUTH EVERY 4 HOURS NEEDED WHILE AWAKE Discharge Instructions Instructions: Migraine Headache (ED) Additional Instructions: take all medications as prescribed. drink at least 6-8 glasses of water or more daily to stay well hydrated. Stand Alone Forms: Nursing Discharge Form Referrals: Saniya Pascual [Primary Care Provider] - (Please call to make an Appointment [phone]) Magaly De La Cruz MD [ [facility] STAFF PHYSICIAN] - Activity:: Activity as Tolerated Equipment/Supplies:: No Equipment Needed Diet:: As Tolerated Discharge Orders Discharge Orders: Discharge Order (Routine); Ordered 11/10/22 Ordered By: Angelica Alejandre Discharge Data Discharge Date/Time-TO BE ENTERED AT DEPARTURE: 11/10/22 17:12 DS: Summary Time Spent with Patient providing and/or coordinating discharge services: Less than 30 minutes Status at Discharge Functional status at discharge: independent ambulation Overall status at discharge: patient is progressing back to baseline Mental Status: mental status grossly normal Speech and Movement: speech and movement normal Mood: labile mood Affect: blunted Exam Const General: cooperative and no acute distress Orientation: alert, awake and oriented x3 Neck Neck: normal visual inspection, full ROM and no meningeal signs Resp Effort & Inspection: normal respiratory effort Auscultation: clear to auscultation bilaterally Cardio Rate: regular rate Rhythm: regular rhythm Back/Spine/Pelvis Cervical Spine: normal cervical lordosis Neuro General: patient alert and patient awake Extrem General: normal to inspection, full ROM and no pedal edema Psych Mental Status: mental status grossly normal Speech and Movement: speech and movement normal Mood: labile mood Affect: blunted DS: Data Vitals/I&O Vitals and I&O: Vital Signs Temperature 36.2 C L 11/10/22 15:54 Temperature Source Tympanic 11/10/22 15:54 Pulse 78 11/10/22 15:54 Pulse Rhythm Regular 11/10/22 09:01 Pulse 73 11/10/22 02:01 Respiratory Rate 18 11/10/22 15:54 Respiratory Effort Normal, Non-Labored 11/10/22 09:01 Respiratory Depth Normal 11/10/22 09:01 Respiratory Pattern Normal 11/10/22 09:01 Blood Pressure 107/57 L 11/10/22 15:54 Blood Pressure Mean 65 11/10/22 02:01 Blood Pressure Position Sitting 11/09/22 20:34 Pulse Oximetry 95 11/10/22 15:54 Oxygen Delivery Method Room Air 11/10/22 15:54 Oxygen Flow Rate 0 11/10/22 15:54 Pain Level 8 11/10/22 15:54 Comment RN notified. 11/10/22 15:54 Intake & Output 11/09/22 11/10/22 11/10/22 23:59 11:59 23:59 Intake Total 500 / 500 1250 / 3440 2190 / 3440 Output Total 50 / 450 400 / 450 Balance 500 / 500 1200 / 2990 1790 / 2990 Weight 118.5 kg 102.058 kg Intake: IV 500 / 500 1250 / 2600 1350 / 2600 Oral 840 / 840 Output: Urine 50 / 450 400 / 450 Other: Urine Color Yellow Light Jaja Urine Appearance Clear Clear Comment urine sample collected Voiding Methods Toilet Toilet Data Completed and Pending Labs on day of discharge: Labs from last 24 hours 11/10/22 11/10/22 11/10/22 08:10 08:10 06:15 WBC 13.14 H RBC 4.52 Hgb 13.6 Hct 41.4 MCV 92 MCH 30.1 MCHC 32.9 RDW 14.0 Plt Count 311 MPV 10.5 Immature Gran % 0.6 Neutrophils % 91.7 Lymphocytes % 6.3 Monocytes % 0.8 Eosinophils % 0.1 Basophils % 0.5 Nucleated RBC % 0.0 Absolute Neutrophils 12.05 H Absolute Lymphocytes 0.83 L Absolute Monocytes 0.11 Absolute Eosinophils 0.01 Absolute Basophils 0.07 Xanthochromia ESR VBG Lactate Sodium Potassium Chloride Carbon Dioxide Anion Gap BUN Creatinine Est GFR (CKD-EPI 2020) Glucose Calcium Magnesium Total Bilirubin AST ALT Alkaline Phosphatase C-Reactive Protein Total Protein Albumin Procalcitonin Urine HCG, Qual Negative CSF Tube Number CSF Color CSF Clarity CSF WBC CSF RBC CSF Diff Comment CSF Glucose CSF Total Protein CSF VDRL CSF Cryptococcal Ag Ttr CSF Cryptococcus Ag CSF DIALLO Virus DNA (PCR) CSF [place] IgG Ab CSF [place] IgM Ab CSF [place] RNA Urine Opiates Screen Positive A Urine Methadone Screen Negative Ur Barbiturates Screen Negative Ur Tricyclics Screen Negative Ur Amphetamines Screen Negative U Benzodiazepines Scrn Positive A Urine Cocaine Screen Negative Ur THC Screen Negative Syphilis Serology B. divergens/MO-1 PCR Babesia duncani (PCR) Babesia microti DNA PCR Lyme Disease Antibody COVID-19 Source SARS-CoV-2 (PCR) E.chaffeensis DNA (PCR) E.ewingii/canis DNA PCR E.muris eauclairensis (PCR) HSV Source Description HSV I DNA PCR HSV II DNA PCR Influenza Type A (PCR) Influenza Type B (PCR) RSV (PCR) A. phagocytophilum (PCR) Blood B. miyamotoi (PCR) Add-On Test Request Miscellaneous Test 11/10/22 11/10/22 11/10/22 06:15 00:19 00:10 WBC RBC Hgb Hct MCV MCH MCHC RDW Plt Count MPV Immature Gran % Neutrophils % Lymphocytes % Monocytes % Eosinophils % Basophils % Nucleated RBC % Absolute Neutrophils Absolute Lymphocytes Absolute Monocytes Absolute Eosinophils Absolute Basophils Xanthochromia ESR VBG Lactate Sodium 142 Potassium 3.6 Chloride 106 Carbon Dioxide 25.9 Anion Gap 10.1 BUN 7 Creatinine 1.0 Est GFR (CKD-EPI 2020) 72.58 Glucose 188 H Calcium 8.5 Magnesium 1.7 L Total Bilirubin AST ALT Alkaline Phosphatase C-Reactive Protein Total Protein Albumin Procalcitonin Urine HCG, Qual CSF Tube Number CSF Color CSF Clarity CSF WBC CSF RBC CSF Diff Comment CSF Glucose CSF Total Protein CSF VDRL CSF Cryptococcal Ag Ttr CSF Cryptococcus Ag CSF DIALLO Virus DNA (PCR) CSF [place] IgG Ab CSF [place] IgM Ab CSF [place] RNA Urine Opiates Screen Urine Methadone Screen Ur Barbiturates Screen Ur Tricyclics Screen Ur Amphetamines Screen U Benzodiazepines Scrn Urine Cocaine Screen Ur THC Screen Syphilis Serology B. divergens/MO-1 PCR Babesia duncani (PCR) Babesia microti DNA PCR Lyme Disease Antibody COVID-19 Source Nasopharynx SARS-CoV-2 (PCR) Negative E.chaffeensis DNA (PCR) E.ewingii/canis DNA PCR E.muris eauclairensis (PCR) HSV Source Description HSV I DNA PCR HSV II DNA PCR Influenza Type A (PCR) Negative Influenza Type B (PCR) Negative RSV (PCR) Negative A. phagocytophilum (PCR) Blood B. miyamotoi (PCR) Add-On Test Request DONE Miscellaneous Test 11/10/22 11/09/22 11/09/22 00:10 22:04 22:04 WBC RBC Hgb Hct MCV MCH MCHC RDW Plt Count MPV Immature Gran % Neutrophils % Lymphocytes % Monocytes % Eosinophils % Basophils % Nucleated RBC % Absolute Neutrophils Absolute Lymphocytes Absolute Monocytes Absolute Eosinophils Absolute Basophils Xanthochromia Absent ESR VBG Lactate Sodium Potassium Chloride Carbon Dioxide Anion Gap BUN Creatinine Est GFR (CKD-EPI 2020) Glucose Calcium Magnesium Total Bilirubin AST ALT Alkaline Phosphatase C-Reactive Protein Total Protein Albumin Procalcitonin Urine HCG, Qual CSF Tube Number 4 CSF Color Colorless CSF Clarity Clear CSF WBC 2 CSF RBC 0 CSF Diff Comment CSF Glucose CSF Total Protein CSF VDRL CSF Cryptococcal Ag Ttr CSF Cryptococcus Ag CSF DIALLO Virus DNA (PCR) CSF [place] IgG Ab CSF [place] IgM Ab CSF [place] RNA Urine Opiates Screen Urine Methadone Screen Ur Barbiturates Screen Ur Tricyclics Screen Ur Amphetamines Screen U Benzodiazepines Scrn Urine Cocaine Screen Ur THC Screen Syphilis Serology B. divergens/MO-1 PCR Babesia duncani (PCR) Babesia microti DNA PCR Lyme Disease Antibody COVID-19 Source SARS-CoV-2 (PCR) E.chaffeensis DNA (PCR) E.ewingii/canis DNA PCR E.muris eauclairensis (PCR) HSV Source Description HSV I DNA PCR HSV II DNA PCR Influenza Type A (PCR) Influenza Type B (PCR) RSV (PCR) A. phagocytophilum (PCR) Blood B. miyamotoi (PCR) Add-On Test Request Cancelled Miscellaneous Test Pending 11/09/22 11/09/22 11/09/22 22:04 22:04 22:04 WBC RBC Hgb Hct MCV MCH MCHC RDW Plt Count MPV Immature Gran % Neutrophils % Lymphocytes % Monocytes % Eosinophils % Basophils % Nucleated RBC % Absolute Neutrophils Absolute Lymphocytes Absolute Monocytes Absolute Eosinophils Absolute Basophils Xanthochromia ESR VBG Lactate Sodium Potassium Chloride Carbon Dioxide Anion Gap BUN Creatinine Est GFR (CKD-EPI 2020) Glucose Calcium Magnesium Total Bilirubin AST ALT Alkaline Phosphatase C-Reactive Protein Total Protein Albumin Procalcitonin Urine HCG, Qual CSF Tube Number CSF Color CSF Clarity CSF WBC CSF RBC CSF Diff Comment CSF Glucose 56 CSF Total Protein 42 CSF VDRL Pending CSF Cryptococcal Ag Ttr Pending CSF Cryptococcus Ag Pending CSF DIALLO Virus DNA (PCR) Pending CSF [place] IgG Ab Pending CSF [place] IgM Ab Pending CSF [place] RNA Pending Urine Opiates Screen Urine Methadone Screen Ur Barbiturates Screen Ur Tricyclics Screen Ur Amphetamines Screen U Benzodiazepines Scrn Urine Cocaine Screen Ur THC Screen Syphilis Serology B. divergens/MO-1 PCR Babesia duncani (PCR) Babesia microti DNA PCR Lyme Disease Antibody COVID-19 Source SARS-CoV-2 (PCR) E.chaffeensis DNA (PCR) E.ewingii/canis DNA PCR E.muris eauclairensis (PCR) HSV Source Description Cancelled HSV I DNA PCR Cancelled HSV II DNA PCR Cancelled Influenza Type A (PCR) Influenza Type B (PCR) RSV (PCR) A. phagocytophilum (PCR) Blood B. miyamotoi (PCR) Add-On Test Request Miscellaneous Test 11/09/22 11/09/22 11/09/22 20:55 20:55 20:55 WBC 12.46 H RBC 4.86 Hgb 14.5 Hct 44.0 MCV 91 MCH 29.8 MCHC 33.0 RDW 13.8 Plt Count 350 MPV 10.0 Immature Gran % 0.4 Neutrophils % 53.4 Lymphocytes % 33.1 Monocytes % 8.8 Eosinophils % 3.2 Basophils % 1.1 Nucleated RBC % 0.0 Absolute Neutrophils 6.65 Absolute Lymphocytes 4.12 H Absolute Monocytes 1.10 H Absolute Eosinophils 0.40 Absolute Basophils 0.14 Xanthochromia ESR VBG Lactate Sodium Potassium Chloride Carbon Dioxide Anion Gap BUN Creatinine Est GFR (CKD-EPI 2020) Glucose Calcium Magnesium Total Bilirubin AST ALT Alkaline Phosphatase C-Reactive Protein Total Protein Albumin Procalcitonin < 0.1 Urine HCG, Qual CSF Tube Number CSF Color CSF Clarity CSF WBC CSF RBC CSF Diff Comment CSF Glucose CSF Total Protein CSF VDRL CSF Cryptococcal Ag Ttr CSF Cryptococcus Ag CSF DIALLO Virus DNA (PCR) CSF [place] IgG Ab CSF [place] IgM Ab CSF [place] RNA Urine Opiates Screen Urine Methadone Screen Ur Barbiturates Screen Ur Tricyclics Screen Ur Amphetamines Screen U Benzodiazepines Scrn Urine Cocaine Screen Ur THC Screen Syphilis Serology B. divergens/MO-1 PCR Babesia duncani (PCR) Babesia microti DNA PCR Lyme Disease Antibody COVID-19 Source SARS-CoV-2 (PCR) E.chaffeensis DNA (PCR) E.ewingii/canis DNA PCR E.muris eauclairensis (PCR) HSV Source Description HSV I DNA PCR HSV II DNA PCR Influenza Type A (PCR) Influenza Type B (PCR) RSV (PCR) A. phagocytophilum (PCR) Blood B. miyamotoi (PCR) Add-On Test Request DONE Miscellaneous Test 11/09/22 11/09/22 11/09/22 20:55 20:55 20:55 WBC RBC Hgb Hct MCV MCH MCHC RDW Plt Count MPV Immature Gran % Neutrophils % Lymphocytes % Monocytes % Eosinophils % Basophils % Nucleated RBC % Absolute Neutrophils Absolute Lymphocytes Absolute Monocytes Absolute Eosinophils Absolute Basophils Xanthochromia ESR VBG Lactate 1.0 Sodium 140 Potassium 3.8 Chloride 103 Carbon Dioxide 28.5 Anion Gap 8.5 BUN 6 L Creatinine 0.9 Est GFR (CKD-EPI 2020) 82.37 Glucose 84 Calcium 9.1 Magnesium 1.7 L Total Bilirubin 0.2 AST 14 L ALT 23 Alkaline Phosphatase 86 C-Reactive Protein Total Protein 7.7 Albumin 3.8 Procalcitonin Urine HCG, Qual CSF Tube Number CSF Color CSF Clarity CSF WBC CSF RBC CSF Diff Comment CSF Glucose CSF Total Protein CSF VDRL CSF Cryptococcal Ag Ttr CSF Cryptococcus Ag CSF DIALLO Virus DNA (PCR) CSF [place] IgG Ab CSF [place] IgM Ab CSF [place] RNA Urine Opiates Screen Urine Methadone Screen Ur Barbiturates Screen Ur Tricyclics Screen Ur Amphetamines Screen U Benzodiazepines Scrn Urine Cocaine Screen Ur THC Screen Syphilis Serology Pending B. divergens/MO-1 PCR Pending Babesia duncani (PCR) Pending Babesia microti DNA PCR Pending Lyme Disease Antibody Pending COVID-19 Source SARS-CoV-2 (PCR) E.chaffeensis DNA (PCR) Pending E.ewingii/canis DNA PCR Pending E.muris eauclairensis (PCR) Pending HSV Source Description HSV I DNA PCR HSV II DNA PCR Influenza Type A (PCR) Influenza Type B (PCR) RSV (PCR) A. phagocytophilum (PCR) Pending Blood B. miyamotoi (PCR) Pending Add-On Test Request Miscellaneous Test 11/09/22 11/09/22 20:55 20:55 WBC RBC Hgb Hct MCV MCH MCHC RDW Plt Count MPV Immature Gran % Neutrophils % Lymphocytes % Monocytes % Eosinophils % Basophils % Nucleated RBC % Absolute Neutrophils Absolute Lymphocytes Absolute Monocytes Absolute Eosinophils Absolute Basophils Xanthochromia ESR 16 VBG Lactate Sodium Potassium Chloride Carbon Dioxide Anion Gap BUN Creatinine Est GFR (CKD-EPI 2020) Glucose Calcium Magnesium Total Bilirubin AST ALT Alkaline Phosphatase C-Reactive Protein 0.36 H Total Protein Albumin Procalcitonin Urine HCG, Qual CSF Tube Number CSF Color CSF Clarity CSF WBC CSF RBC CSF Diff Comment CSF Glucose CSF Total Protein CSF VDRL CSF Cryptococcal Ag Ttr CSF Cryptococcus Ag CSF DIALLO Virus DNA (PCR) CSF [place] IgG Ab CSF [place] IgM Ab CSF [place] RNA Urine Opiates Screen Urine Methadone Screen Ur Barbiturates Screen Ur Tricyclics Screen Ur Amphetamines Screen U Benzodiazepines Scrn Urine Cocaine Screen Ur THC Screen Syphilis Serology B. divergens/MO-1 PCR Babesia duncani (PCR) Babesia microti DNA PCR Lyme Disease Antibody COVID-19 Source SARS-CoV-2 (PCR) E.chaffeensis DNA (PCR) E.ewingii/canis DNA PCR E.muris eauclairensis (PCR) HSV Source Description HSV I DNA PCR HSV II DNA PCR Influenza Type A (PCR) Influenza Type B (PCR) RSV (PCR) A. phagocytophilum (PCR) Blood B. miyamotoi (PCR) Add-On Test Request Miscellaneous Test 11/09/22 22:04 Cerebrospinal Fluid Body Fluid Culture - Pending Preliminary micro results at discharge 11/09/22 22:04 Body Fluid Culture - Pending Cerebrospinal Fluid PFSH All Active Problems (Updated 11/11/22 @ 00:05 by ALANA VALVERDE) Status migrainosus (Acute) Photophobia (Acute) Phonophobia (Acute) Hypomagnesemia (Acute) Headache (Acute) Medical History Acquired syphilis Alcohol abuse Anxiety Bipolar 1 disorder, mixed Dysphagia GERD (gastroesophageal reflux disease) Headache History of asthma Lumbar back pain Mixed stress and urge urinary incontinence Obesity Occasional tremors Paranoia Polycythemia vera PTSD (post-traumatic stress disorder) Shortness of breath Snoring Tobacco abuse Surgical History EGD - MAC (02/18/16) Endometrial Ablation (03/28/15) Ligation of fallopian tube Singh Fundoplication 2005 Release for de Quervain's tenosynovitis of hand 2009 LEFT WRIST Vaginal hysterectomy (06/17/15) Ovary sparing Family History Maternal Aunt Neoplasm breast ca Maternal Aunt Neoplasm breast ca Social History Smoking/Tobacco Use Status: Current every day Tobacco Type: cigarettes Smoking risk assessment performed?: Yes Alcohol Intake: former Drug use: Occasionally Substance use type: former substance user, marijuana and crack/cocaine Do you feel safe at home: Yes Do you feel safe in your relationship?: Yes Time Spent with Patient Time Spent with Patient: <45 minutes Time was spent: preparing to see the patient(eg.review tests), obtaining and/or reviewing separately otained hiistory, ordering medications,tests, procedures, referring, communicating with other health director of patient care, indepentently interpreting results, counseling the patient and care coordination
--- NOTE | 2022-11-10 17:10 | PDOC.CMDIS ---
Date of service: 11/10/22 Time of Service: 17:10 LACE Index Scoring Tool Questions: Length of Stay (in days): 1 Was the patient admitted via the E.D.?: Yes E.D. Visits: 4 Answers: Total Score: 8 Risk of Readmission: Low Risk Care Management Discharge Plan Reason for Hospitalization: Intractable headache Discharge Plan: Lauren will return home with no new services. Her family will drive her home via private vehicle. She will follow up with her PCP and discharge plan of care. She is happy to be going home. CM provided a return to work letter, at her and the provider's request. Patient/Family Education Needs: Review discharge instructions and limitations, discussion of self care needs including ask me three.
[2022-11-10 19:55] LABS: Cryptococcal Antigen CSF Negative (Negative)
[2022-11-11 10:34] LABS: Lyme Ab w Rflx to Lyme Confirm Negative (Negative)
[2022-11-11 10:47] LABS: Syphilis Serology (RPR) Positive (Negative)
[2022-11-12 12:13] LABS: VDRL, CSF Negative (Negative)
[2022-11-13 16:00] LABS: RPR w/Reflex Positive (Negative)
[2022-11-15 11:56] LABS: Anaplasma phagocytophilum Negative (Negative); B. miyamotoi PCR Negative (Negative); Babesia divergens/MO-1 Negative (Negative); Babesia duncani Negative (Negative); Babesia microti Negative (Negative); Ehrlichia chaffeensis Negative (Negative); Ehrlichia ewingii/canis Negative (Negative); Ehrlichia muris eauclairensis Negative (Negative)
[2022-11-15 15:19] LABS: West Nile Virus Ab, IgG, CSF Negative (Negative); West Nile Virus Ab, IgM, CSF Negative (Negative)
[2022-11-15 21:36] LABS: West Nile Virus PCR, CSF Negative (Negative)
[2022-11-16 14:05] LABS: JC Virus PCR, CSF Negative (Negative)
[2022-11-17 09:37] LABS: Misc Referral (MAYO) See Comments
== END 2022-11-10 17:12 | disposition home or self-care (01) ==
LOC: ER 11-10 01:32 → MS 11-10 02:16
PROVIDERS: Internal Medicine; Admitting Provider Internal Medicine; Emergency Provider Student in an Organized Health Care Education/Training Program; PCP Nurse Practitioner Family; Visit Provider Internal Medicine
DX: G43.901 Migraine, unspecified, not intractable, with status migrainosus (principal); E83.42 Hypomagnesemia; H53.149 Visual discomfort, unspecified; J45.909 Unspecified asthma, uncomplicated; F43.10 Post-traumatic stress disorder, unspecified; F41.9 Anxiety disorder, unspecified; F31.9 Bipolar disorder, unspecified; K21.9 Gastro-esophageal reflux disease without esophagitis; M54.50 Low back pain, unspecified; F17.210 Nicotine dependence, cigarettes, uncomplicated; N39.46 Mixed incontinence; E66.9 Obesity, unspecified; Z68.36 Body mass index [BMI] 36.0-36.9, adult; R25.1 Tremor, unspecified; F22 Delusional disorders; F19.91 Other psychoactive substance use, unspecified, in remission; F10.11 Alcohol abuse, in remission; Z87.898 Personal history of other specified conditions; Z79.899 Other long term (current) drug therapy
CPT/HCPCS: 0064U; 36415; 70553; 80048; 80053; 80307; 82945; 84145; 85652; 86593; 87529; 87637; 87798; 89050; 89051; 94640; 96361; 96365; 96366; 96368; 96374; 96375; 96376; 99222; 99285; 71045; 81025; 83605; 83735; 84157; 85025; 86140; 86403; 86592; 86618; 86788; 86789; 87070; 87205; 94664; 99235; G0378; J0133; J0780; J1170; J1885; J2060; J2405; J2930; J3230; J3360; J3475

== ENCOUNTER 2022-11-14 16:34 | Emergency (ER) | payer MEDICARE, MEDICAID, SELFPAY ==
[2022-11-14] VITALS (43 sets, daily range): BP systolic 102–114; BP diastolic 52–65; PULSE 65–100; RESP 16–26; TEMP 37.2; O2SAT 96
--- NOTE | 2022-11-14 16:30 | RT.EKG_ITS ---
APPROVED REPORT Exam: Resting ECG Reason for Exam: overdose Patient Location: E HR:68 bpm ECG Measurements Heart Rate 68 AXIS MO 150 P 71 QRSd 100 QRS 70 QT 416 T 59 QTc 443 Conclusion Sinus rhythm...normal P axis, V-rate 60- 99
[2022-11-14 17:00] LABS: Abs Immature Grans 0.06 10^3/uL (0.0-0.06); Absolute Basophil Count 0.12 10^3/uL (0.0-0.2); Absolute Eosinophil Count 0.37 10^3/uL (0.0-0.7); Absolute Monocyte Count 1.27 10^3/uL (0.1-0.8); HCT 43.1 % (36.0-46.0); HGB 14.6 g/dL (11.2-15.7); Immature Grans % 0.5; Lymphocytes % 28.4; MCH 30.1 pg (27.0-33.0); MCHC 33.9 % (32.0-36.0); MCV 89 fL (80-95); MPV 9.5 fL (8.0-11.0); Monocytes % 10.3; Neutrophils % 56.8; Platelet Count 304 10^3/uL (130-400); RBC 4.85 10^6/uL (3.93-5.22); RDW 13.7 % (11.7-14.6); RDW-SD 44.9 fL; WBC 12.33 10^3/uL (4.4-10.8)
[2022-11-14 17:08] LABS: Magnesium 1.8 mg/dL (1.8-2.4)
[2022-11-14 17:15] LABS: VALPROIC ACID < 3 ug/mL
[2022-11-14 17:24] LABS: ALT 29 U/L (14-59); AST 24 U/L (15-37); Albumin 3.2 g/dL (3.4-5.0); Alkaline Phosphatase 81 U/L (46-116); Anion Gap 10.8 mmol/L (3-11); BUN 6 mg/dL (7-18); Bilirubin, Total 0.3 mg/dL (0.2-1.0); CO2 24.2 mmol/L (21.0-32.0); CREATININE 0.6 mg/dL (0.55-1.02); Calcium 8.8 mg/dL (8.5-10.1); Chloride 101 mmol/L (98-107); ETHANOL BLOOD 179.4 mg/dL (<10); Estimated GFR 115.57 (mL/min/1.73m2); Glucose 86 mg/dL (74-106); Potassium 3.8 mmol/L (3.5-5.1); Sodium 136 mmol/L (136-145); TSH (W/Ref FT4) 5.52 uIU/mL (0.36-3.74); Total Protein 7.3 g/dL (6.4-8.2)
[2022-11-14] MEDS: Normal Saline 1,000 ML 1000 ML IV (17:24)
[2022-11-14 17:32] LABS: Salicylate 4.8 mg/dL (<2.8)
[2022-11-14 17:33] LABS: Acetaminophen < 2 ug/mL (10-30)
[2022-11-14 17:36] LABS: Bilirubin Negative (Negative); Blood Negative (Negative); Clarity Clear (Clear); Glucose Negative (Negative); Ketones Negative (Negative); Leukocyte Esterase Negative (Negative); Nitrite Negative (Negative); Specific Gravity <= 1.005 (1.005-1.025); Urobilinogen 0.2 mg/dL (Up to 0.2); pH 5.5 (5-8)
[2022-11-14 17:40] LABS: *AMPHETAMINES SCREEN URINE Negative (Negative); *BARBITURATES SCREEN URINE Negative (Negative); *BENZODIAZEPINES SCREEN URINE Negative (Negative); Cannabinoids THC Negative (Negative); Cocaine Screen,Urine Negative (Negative); METHADONE URINE SCREEN Negative (Negative); OPIATES URINE SCREEN Negative (Negative); Tricyclic Antidepressants Negative (Negative)
[2022-11-14 17:40] LABS: FREE T4 1.13 ng/dL (0.76-1.46)
--- NOTE | 2022-11-14 20:03 | ED.GENADUL_ITS ---
Discharge Plan Disposition Patient Disposition: Home Discharge Details Clinical Impression: Alcohol intoxication, Overdose Primary Care Provider: Saniya Pascual ED Provider: Shelton Gardner Home Meds and New Rx's Prescriptions: No Action nicotine (polacrilex) [Nicorette] 2 mg gum 2 mg buccal Q2H PRN Patient Comments: does not use prochlorperazine maleate [Compazine] 10 mg tablet 10 mg PO Q6H PRNQty: 10 0RF gabapentin 300 mg capsule 300 mg PO TID esomeprazole magnesium 40 mg capsule,delayed release(DR/EC) 40 mg PO DAILY Patient Comments: TAKE ONE CAPSULE BY MOUTH EVERY DAY vilazodone [Viibryd] 40 mg tablet 40 mg PO DAILY cyclobenzaprine 10 mg tablet 10 mg PO TID PRN (Reason: muscle spasm) Qty: 15 0RF levalbuterol tartrate 45 mcg/actuation HFA aerosol inhaler 2 puff INHALATION Q6H PRN Patient Comments: INHALE TWO PUFFS BY MOUTH EVERY 4 HOURS NEEDED WHILE AWAKE Spiriva Respimat 2.5 mcg/actuation Mist 2 puff inhalation DAILY Qty: 0 0RF albuterol sulfate [Ventolin HFA] 90 mcg/actuation Hfa Aerosol Inhaler 2 puff inhalation Q6H PRN PRNQty: 0 0RF divalproex [Depakote] 250 mg tablet,delayed release (DR/EC) 250 mg PO TID Qty: 21 0RF Discharge Instructions Instructions: Alcohol Intoxication (ED), Adult Overdose (ED) Additional Instructions: Please follow-up with primary care physician and [facility] human services. Please return to the emergency department for any worsening symptoms Discharge Data Discharge Date/Time-TO BE ENTERED AT DEPARTURE: 11/15/22 00:34 Medical Decision Making <ML Padilla - Last Filed: 11/15/22 18:39> Patient initially is quite agitated and screaming stopped trying to save me She is endorsing suicidal ideation I do not want to live like this anymore new line reports taking a 300 mg Neurontin and alcohol, intentional overdose per p atient Has been maintaining airway but has been tired throughout this encounter, she is easily arousable Her vitals have been stable Poison control was consulted immediately upon arrival and the recommendation is for 4 to 6 hours of observation for [employer] monitoring Patient will then be medically cleared and reassessed by mental health She has had numerous reassessments throughout this in counter, secondary to persistent headache and fatigue, I did order CT scan at 930, this is interpreted as negative by radiology on reassessment At 1130, patient is more responsive, she is alert She is now saying she just wanted to take a break . glucose 72, will give food/drink Pending mental health reassessment will transition care to Dr. Gomez Gardner pending mental health assessment and disposition Medical Records Medical records reviewed: Yes I reviewed the patient's medical records. <Shelton Gradner MD - Last Filed: 11/15/22 00:06> Patient initially is quite agitated and screaming stopped trying to save me She is endorsing suicidal ideation I do not want to live like this anymore new line reports taking a 300 mg Neurontin and alcohol, intentional overdose per patient Has been maintaining airway but has been tired throughout this encounter, she is easily arousable Her vitals have been stable Poison control was consulted immediately upon arrival and the recommendation is for 4 to 6 hours of observation for [employer] monitoring Patient will then be medically cleared and reassessed by mental health She has had numerous reassessments throughout this in counter, secondary to persistent headache and fatigue, I did order CT scan at 930, this is interpreted as negative by radiology on reassessment At 1130, patient is more responsive, she is alert She is now saying she just wanted to take a break . glucose 72, will give food/drink Pending mental health reassessment will transition care to Dr. Gomez Gardner pending mental health assessment and disposition 11/15 00: 03 patient resting comfortably no acute distress. CT head unremarkable. Patient clinically sober alert oriented maintaining airway tolerating secretions. Patient denies SI or HI. Patient was evaluated by [facility] human services denies any psychiatric symptoms at this time was cleared by psych clinical trial assistant. Will be set up with outpatient services. Safe for discharge HPI <ML Padilla - Last Filed: 11/15/22 18:39> General Date/Time Provider Initiated Documentation: 11/14/22 16:41 . HPI Narrative: This 42-year-old female presents with report of intentional overdose, taking approximately 8 300 mg of gabapentin tablets and alcohol, unknown quantity. States this was an attempt to take her life. States stop trying to save me, I do not want to live anymore . States she was recently hospitalized for headache which has had intermittently for the past several days. Denies any additional illicit drugs. Denies chest pain or shortness of breath, denies any auditory visual hallucinations. EMS reports 10 mg of droperidol in route secondary to acute agitation Related Data Home Medications Medication Instructions Recorded Confirmed nicotine (polacrilex) 2 mg gum 2 mg buccal Q2H PRN 08/27/20 11/10/22 (Nicorette) esomeprazole magnesium 40 mg 40 mg PO DAILY 05/18/22 11/10/22 capsule,delayed release vilazodone 40 mg tablet (Viibryd) 40 mg PO DAILY 05/18/22 11/10/22 cyclobenzaprine 10 mg tablet 10 mg PO TID PRN muscle spasm #15 06/26/22 11/10/22 tabs prochlorperazine maleate 10 mg 10 mg PO Q6H PRN #10 tabs 11/07/22 11/10/22 tablet (Compazine) gabapentin 300 mg capsule 300 mg PO TID 11/08/22 11/10/22 albuterol sulfate 90 mcg/actuation 2 puff inhalation Q6H PRN PRN #0 11/10/22 aerosol inhaler (Ventolin HFA) grams divalproex 250 mg tablet,delayed 250 mg PO TID #21 tabs 11/10/22 release (Depakote) levalbuterol tartrate 45 2 puff inhalation Q6H PRN 11/10/22 11/10/22 mcg/actuation aerosol inhaler tiotropium bromide 2.5 2 puff inhalation DAILY #0 grams 11/10/22 mcg/actuation mist for inhalation (Spiriva Respimat) Previous Rx's Medication Instructions Recorded cyclobenzaprine 10 mg tablet 10 mg PO TID PRN muscle spasm #15 06/26/22 tabs prochlorperazine maleate 10 mg 10 mg PO Q6H PRN #10 tabs 11/07/22 tablet (Compazine) albuterol sulfate 90 mcg/actuation 2 puff inhalation Q6H PRN PRN #0 11/10/22 aerosol inhaler (Ventolin HFA) grams divalproex 250 mg tablet,delayed 250 mg PO TID #21 tabs 11/10/22 release (Depakote) tiotropium bromide 2.5 2 puff inhalation DAILY #0 grams 11/10/22 mcg/actuation mist for inhalation (Spiriva Respimat) Allergies Allergy/AdvReac Type Severity Reaction Status Date / Time pineapple Allergy Severe Anaphylaxis Verified 11/14/22 17:07 propranolol Allergy Severe Verified 11/14/22 17:07 mirtazapine [From Remeron] Allergy Mild Verified 11/14/22 17:07 trazodone AdvReac Mild Hallucinati Unverified 11/14/22 17:07 ons walnuts Allergy Severe Anaphylaxis Uncoded 11/14/22 17:07 Trazodone HCL Allergy Mild Uncoded 11/14/22 17:07 General Stated Complaint: PsychEval BETSY: 2 PFSH <ML Padilla - Last Filed: 11/15/22 18:39> All Active Problems (Updated 11/15/22 @ 00:06 by Shelton Gardner MD) Alcohol intoxication (Acute) Overdose (Acute) Status migrainosus (Acute) Photophobia (Acute) Phonophobia (Acute) Hypomagnesemia (Acute) Headache (Acute) Medical History Acquired syphilis Alcohol abuse Anxiety Bipolar 1 disorder, mixed Dysphagia GERD (gastroesophageal reflux disease) Headache History of asthma Lumbar back pain Mixed stress and urge urinary incontinence Obesity Occasional tremors Paranoia Polycythemia vera PTSD (post-traumatic stress disorder) Shortness of breath Snoring Tobacco abuse Surgical History EGD - MAC (02/18/16) Endometrial Ablation (03/28/15) Ligation of fallopian tube Singh Fundoplication 2005 Release for de Quervain's tenosynovitis of hand 2009 LEFT WRIST Vaginal hysterectomy (06/17/15) Ovary sparing Family History Maternal Aunt Neoplasm breast ca Maternal Aunt Neoplasm breast ca Social History Smoking/Tobacco Use Status: Current every day Tobacco Type: cigarettes Smoking risk assessment performed?: Yes Alcohol Intake: current Alcohol Intake frequency: a few times a month Alcohol type: beer Drug use: Occasionally Substance use type: former substance user, marijuana and crack/cocaine Details: former crack/cocaine user Do you feel safe at home: Yes Do you feel safe in your relationship?: No Additional Social history: When asked if the patient felt safe in relationships she replied I dont know Exam <ML Padilla - Last Filed: 11/15/22 18:39> Const General: intoxicated appearing Orientation: alert Other: Tired in appearance HENMT Head: normal to inspection Other: Uvula midline, oropharynx patent Eyes Pupils: PERRL Neck Neck: normal visual inspection Resp Effort & Inspection: normal respiratory effort Auscultation: clear to auscultation bilaterally Cardio Rate: regular rate Rhythm: regular rhythm GI Inspection: normal to inspection Neuro General: patient alert and patient oriented x3 Course <ML Padilla - Last Filed: 11/15/22 18:39> Vital Signs Vital signs: Vital Signs Temperature 37.2 C 11/14/22 16:35 Pulse 81 11/14/22 16:35 Respiratory Rate 18 11/14/22 16:35 Blood Pressure 113/65 11/14/22 16:35 Pulse Oximetry 96 11/14/22 16:35 Temperature 37.2 C 11/14/22 16:35 Temperature Source Skin 11/14/22 16:35 Pulse 73 11/14/22 18:16 Pulse 74 11/14/22 18:16 Respiratory Rate 20 11/14/22 18:16 Respiratory Effort Normal 11/14/22 16:56 Blood Pressure 102/56 L 11/14/22 18:16 Blood Pressure Mean 67 11/14/22 18:16 Blood Pressure Position Supine 11/14/22 16:35 Pulse Oximetry 96 11/14/22 16:35 Oxygen Delivery Method Room Air 11/14/22 16:35 Oxygen Flow Rate 0 11/14/22 16:35 Lab/Test Results Lab/Test Results: Laboratory Tests Range/Units 11/14/22 11/14/22 11/14/22 16:50 16:50 16:50 WBC (4.4-10.8) 10^3/uL 12.33 H RBC (3.93-5.22) 10^6/uL 4.85 Hgb (11.2-15.7) g/dL 14.6 Hct (36.0-46.0) % 43.1 MCV (80-95) fL 89 MCH (27.0-33.0) pg 30.1 MCHC (32.0-36.0) % 33.9 RDW (11.7-14.6) % 13.7 Plt Count (130-400) 10^3/uL 304 MPV (8.0-11.0) fL 9.5 Immature Gran % 0.5 Neutrophils % 56.8 Lymphocytes % 28.4 Monocytes % 10.3 Eosinophils % 3.0 Basophils % 1.0 Nucleated RBC % (0.0-0.3) % 0.0 Absolute Neutrophils (1.2-6.7) 10^3/uL 7.00 H Absolute Lymphocytes (1.2-3.4) 10^3/uL 3.50 H Absolute Monocytes (0.1-0.8) 10^3/uL 1.27 H Absolute Eosinophils (0.0-0.7) 10^3/uL 0.37 Absolute Basophils (0.0-0.2) 10^3/uL 0.12 Sodium (136-145) mmol/L 136 Potassium (3.5-5.1) mmol/L 3.8 Chloride (98-107) mmol/L 101 Carbon Dioxide (21.0-32.0) mmol/L 24.2 Anion Gap (3-11) mmol/L 10.8 BUN (7-18) mg/dL 6 L Creatinine (0.55-1.02) mg/dL 0.6 Est GFR (CKD-EPI 2020) (mL/min/1.73m2) 115.57 Glucose (74-106) mg/dL 86 Calcium (8.5-10.1) mg/dL 8.8 Magnesium (1.8-2.4) mg/dL Total Bilirubin (0.2-1.0) mg/dL 0.3 AST (15-37) U/L 24 ALT (14-59) U/L 29 Alkaline Phosphatase (46-116) U/L 81 Total Protein (6.4-8.2) g/dL 7.3 Albumin (3.4-5.0) g/dL 3.2 L TSH (0.36-3.74) uIU/mL 5.52 H Free T4 (0.76-1.46) ng/dL 1.13 Urine Color (Yellow) Urine Clarity (Clear) Urine pH (5-8) Ur Specific Tyronza (1.005-1.025) Urine Protein (Negative) mg/dL Urine Ketones (Negative) mg/dL Urine Blood (Negative) Urine Nitrite (Negative) Urine Bilirubin (Negative) Urine Urobilinogen (Up to 0.2) mg/dL Ur Leukocyte Esterase (Negative) Urine Glucose (Negative) mg/dL Salicylates (<2.8) mg/dL 4.8 Urine Opiates Screen (Negative) Urine Methadone Screen (Negative) Acetaminophen (10-30) ug/mL < 2 Ur Barbiturates Screen (Negative) Valproic Acid ( - 150) ug/mL Ur Tricyclics Screen (Negative) Ur Amphetamines Screen (Negative) U Benzodiazepines Scrn (Negative) Urine Cocaine Screen (Negative) Ur THC Screen (Negative) Ethyl Alcohol (<10) mg/dL 179.4 H Range/Units 11/14/22 11/14/22 11/14/22 16:50 16:50 17:13 WBC (4.4-10.8) 10^3/uL RBC (3.93-5.22) 10^6/uL Hgb (11.2-15.7) g/dL Hct (36.0-46.0) % MCV (80-95) fL MCH (27.0-33.0) pg MCHC (32.0-36.0) % RDW (11.7-14.6) % Plt Count (130-400) 10^3/uL MPV (8.0-11.0) fL Immature Gran % Neutrophils % Lymphocytes % Monocytes % Eosinophils % Basophils % Nucleated RBC % (0.0-0.3) % Absolute Neutrophils (1.2-6.7) 10^3/uL Absolute Lymphocytes (1.2-3.4) 10^3/uL Absolute Monocytes (0.1-0.8) 10^3/uL Absolute Eosinophils (0.0-0.7) 10^3/uL Absolute Basophils (0.0-0.2) 10^3/uL Sodium (136-145) mmol/L Potassium (3.5-5.1) mmol/L Chloride (98-107) mmol/L Carbon Dioxide (21.0-32.0) mmol/L Anion Gap (3-11) mmol/L BUN (7-18) mg/dL Creatinine (0.55-1.02) mg/dL Est GFR (CKD-EPI 2020) (mL/min/1.73m2) Glucose (74-106) mg/dL Calcium (8.5-10.1) mg/dL Magnesium (1.8-2.4) mg/dL 1.8 Total Bilirubin (0.2-1.0) mg/dL AST (15-37) U/L ALT (14-59) U/L Alkaline Phosphatase (46-116) U/L Total Protein (6.4-8.2) g/dL Albumin (3.4-5.0) g/dL TSH (0.36-3.74) uIU/mL Free T4 (0.76-1.46) ng/dL Urine Color (Yellow) Urine Clarity (Clear) Urine pH (5-8) Ur Specific Tyronza (1.005-1.025) Urine Protein (Negative) mg/dL Urine Ketones (Negative) mg/dL Urine Blood (Negative) Urine Nitrite (Negative) Urine Bilirubin (Negative) Urine Urobilinogen (Up to 0.2) mg/dL Ur Leukocyte Esterase (Negative) Urine Glucose (Negative) mg/dL Salicylates (<2.8) mg/dL Urine Opiates Screen (Negative) Negative Urine Methadone Screen (Negative) Negative Acetaminophen (10-30) ug/mL Ur Barbiturates Screen (Negative) Negative Valproic Acid ( - 150) ug/mL < 3 Ur Tricyclics Screen (Negative) Negative Ur Amphetamines Screen (Negative) Negative U Benzodiazepines Scrn (Negative) Negative Urine Cocaine Screen (Negative) Negative Ur THC Screen (Negative) Negative Ethyl Alcohol (<10) mg/dL Range/Units 11/14/22 17:13 WBC (4.4-10.8) 10^3/uL RBC (3.93-5.22) 10^6/uL Hgb (11.2-15.7) g/dL Hct (36.0-46.0) % MCV (80-95) fL MCH (27.0-33.0) pg MCHC (32.0-36.0) % RDW (11.7-14.6) % Plt Count (130-400) 10^3/uL MPV (8.0-11.0) fL Immature Gran % Neutrophils % Lymphocytes % Monocytes % Eosinophils % Basophils % Nucleated RBC % (0.0-0.3) % Absolute Neutrophils (1.2-6.7) 10^3/uL Absolute Lymphocytes (1.2-3.4) 10^3/uL Absolute Monocytes (0.1-0.8) 10^3/uL Absolute Eosinophils (0.0-0.7) 10^3/uL Absolute Basophils (0.0-0.2) 10^3/uL Sodium (136-145) mmol/L Potassium (3.5-5.1) mmol/L Chloride (98-107) mmol/L Carbon Dioxide (21.0-32.0) mmol/L Anion Gap (3-11) mmol/L BUN (7-18) mg/dL Creatinine (0.55-1.02) mg/dL Est GFR (CKD-EPI 2020) (mL/min/1.73m2) Glucose (74-106) mg/dL Calcium (8.5-10.1) mg/dL Magnesium (1.8-2.4) mg/dL Total Bilirubin (0.2-1.0) mg/dL AST (15-37) U/L ALT (14-59) U/L Alkaline Phosphatase (46-116) U/L Total Protein (6.4-8.2) g/dL Albumin (3.4-5.0) g/dL TSH (0.36-3.74) uIU/mL Free T4 (0.76-1.46) ng/dL Urine Color (Yellow) Yellow Urine Clarity (Clear) Clear Urine pH (5-8) 5.5 Ur Specific Tyronza (1.005-1.025) <= 1.005 Urine Protein (Negative) mg/dL Negative Urine Ketones (Negative) mg/dL Negative Urine Blood (Negative) Negative Urine Nitrite (Negative) Negative Urine Bilirubin (Negative) Negative Urine Urobilinogen (Up to 0.2) mg/dL 0.2 Ur Leukocyte Esterase (Negative) Negative Urine Glucose (Negative) mg/dL Negative Salicylates (<2.8) mg/dL Urine Opiates Screen (Negative) Urine Methadone Screen (Negative) Acetaminophen (10-30) ug/mL Ur Barbiturates Screen (Negative) Valproic Acid ( - 150) ug/mL Ur Tricyclics Screen (Negative) Ur Amphetamines Screen (Negative) U Benzodiazepines Scrn (Negative) Urine Cocaine Screen (Negative) Ur THC Screen (Negative) Ethyl Alcohol (<10) mg/dL POC- Test(urine) Negative PAWSS <ML Padilla - Last Filed: 11/15/22 18:39> Have you Been Recently Intoxicated or Drunk Within the Last 30 days?: Yes Have you Ever Experienced Previous Episodes of Alcohol Withdrawal?: Yes Have you ever Experienced Withdrawal Seizures?: No Have you ever Experienced Delirium Tremens(DT)s?: Yes Have you ever undergone Alcohol Rehabilitation Treatment (i.e, inpt ot outpatient treatment programs)?: Yes Have you ever Experienced Blackouts?: Yes Have you ever Combined Alcohol with other Downers within the last 90 days?: Yes Have you ever Combined Alcohol with any other Substance of Abuse during the last 90 days?: No Result: 5 <Shelton Gardner MD - Last Filed: 11/15/22 00:06> Result: 5
[2022-11-14 22:01] LABS: ALT 29 U/L (14-59); AST 20 U/L (15-37); Alkaline Phosphatase 81 U/L (46-116); BUN 6 mg/dL (7-18); Bilirubin, Total 0.2 mg/dL (0.2-1.0); CREATININE 0.8 mg/dL (0.55-1.02); Calcium 8.8 mg/dL (8.5-10.1); Chloride 105 mmol/L (98-107); Estimated GFR 94.87 (mL/min/1.73m2); Glucose 72 mg/dL (74-106); Potassium 3.7 mmol/L (3.5-5.1); Sodium 140 mmol/L (136-145)
[2022-11-14 22:08] LABS: Acetaminophen < 2 ug/mL (10-30)
--- NOTE | 2022-11-14 22:15 | DI.CT_ITS ---
Exam(s) CT HEAD WO EXAM: CT HEAD WO CLINICAL HISTORY: headache persistent. TECHNIQUE: Imaging Protocol: Axial computed tomography images with coronal and sagittal reformatted images were created and reviewed COMPARISON: CT CT HEAD WO from 11/08/2022 FINDINGS: Ventricles and Extra axial spaces: Normal in size and morphology for the patient's age. Hemorrhage: None. Cerebral parenchyma: Normal. Midline shift: None. Brainstem/Cerebellum: Normal. Calvarium: Normal. Visualized Paranasal sinuses/Mastoids: Clear. Soft Tissues: Unremarkable. IMPRESSION: No acute intracranial process. RADIATION DOSE DELIVERED: 745.91mGy.cm Total DLP DATA REPOSITORY: All CT scans at this facility are submitted to the National Radiology Data Registry (NRDR) Dose Index Registry (DIR) with the [employer] (A[employer]). RADIATION OPTIMIZATION: All CT scans at this facility use at least one of these dose optimization te chniques: automated exposure control; mA and/or kV adjustment per patient size (includes targeted exa ms where dose is matched to clinical indication); or iterative reconstruction.
--- NOTE | 2022-11-14 22:59 | DI.VRAD_ITS ---
PROCEDURE INFORMATION: Exam: CT Head Without Contrast Exam date and time: 11/14/2022 22:32 Age: 42 years old Clinical indication: Pain; Patient HX: Persistent headache TECHNIQUE: Imaging protocol: Computed tomography of the head without contrast. COMPARISON: MR BRAIN WO/W 11/10/2022 12:09 FINDINGS: Brain: No edema or hemorrhage. Cerebral ventricles: No ventriculomegaly. Paranasal sinuses: No acute sinusitis. Mastoid air cells: No mastoid effusion. Bones/joints: No acute fracture. Soft tissues: No suspicious lesions. IMPRESSION: No acute intracranial findings. Dictated and Authenticated by: Socorro Black MD. Ordering:JESSICA Choi MD
[2022-11-15 00:46] VITALS: BP 101/73; PULSE 78; RESP 15; TEMP 37; O2SAT 98
== END 2022-11-15 00:34 | disposition home or self-care (01) ==
PROVIDERS: Physician Assistant; Emergency Provider Emergency Medicine; PCP Nurse Practitioner Family
DX: F10.929 Alcohol use, unspecified with intoxication, unspecified (principal); T42.6X2A Poisoning by other antiepileptic and sedative-hypnotic drugs, intentional self-harm, initial encounter; R45.851 Suicidal ideations
CPT/HCPCS: 36415; 36416; 80053; 80307; 81025; 82962; 93005; 96360; 99285; 70450; 80164; 80320; 80329; 81003; 83735; 84439; 84443; 85025; 93010

== ENCOUNTER → 2022-11-18 10:04 | Outpatient (BNVA) | payer MEDICARE, MEDICAID, SELFPAY | PROVIDERS: PCP Nurse Practitioner Family; Referring Provider Nurse Practitioner Family; Visit Provider Nurse Practitioner Adult Health | DX: G43.019 Migraine without aura, intractable, without status migrainosus (principal) | CPT/HCPCS: 99204; 99215 ==

== ENCOUNTER → 2022-12-08 15:27 | Outpatient (BNVA) | payer MEDICARE, MEDICAID, SELFPAY | PROVIDERS: PCP Nurse Practitioner Family; Referring Provider Nurse Practitioner Family; Visit Provider Nurse Practitioner Adult Health | DX: G43.009 Migraine without aura, not intractable, without status migrainosus (principal); F39 Unspecified mood [affective] disorder; F10.20 Alcohol dependence, uncomplicated | CPT/HCPCS: 99213 ==

== ENCOUNTER 2022-12-29 11:19 | Emergency (ER) | payer OTHER, SELFPAY ==
[2022-12-29 11:21] VITALS: BP 131/76; PULSE 89; RESP 20; TEMP 36.6; O2SAT 96
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
== END 2022-12-29 12:49 | disposition home or self-care (01) ==
PROVIDERS: Emergency Provider Emergency Medicine; PCP Nurse Practitioner Family
DX: T74.21XA Adult sexual abuse, confirmed, initial encounter (principal)
CPT/HCPCS: 99284

== ENCOUNTER 2023-02-17 22:12 | Outpatient (REF) | payer MEDICARE, MEDICAID, SELFPAY ==
[2023-02-17 22:44] LABS: ALT 28 U/L (14-59); AST 18 U/L (15-37); Albumin 3.9 g/dL (3.4-5.0); Alkaline Phosphatase 86 U/L (46-116); Anion Gap 10.8 mmol/L (3-11); BUN 11 mg/dL (7-18); Bilirubin, Total 0.4 mg/dL (0.2-1.0); CO2 26.2 mmol/L (21.0-32.0); CREATININE 0.9 mg/dL (0.55-1.02); Calcium 9.5 mg/dL (8.5-10.1); Chloride 103 mmol/L (98-107); Estimated GFR 82.37 (mL/min/1.73m2); Glucose 87 mg/dL (74-106); Potassium 4.4 mmol/L (3.5-5.1); Sodium 140 mmol/L (136-145); TSH (W/Ref FT4) 2.55 uIU/mL (0.36-3.74); Total Protein 7.4 g/dL (6.4-8.2)
== END 2023-02-17 22:13 | disposition home or self-care (01) ==
LOC: NCHCN 22:12
PROVIDERS: PCP Nurse Practitioner Family; Visit Provider Nurse Practitioner Family
DX: F10.10 Alcohol abuse, uncomplicated (principal); F41.8 Other specified anxiety disorders
CPT/HCPCS: 80053; 84443

== ENCOUNTER 2023-04-12 14:54 | Emergency (ER) | payer MEDICARE, MEDICAID, OTHER, SELFPAY ==
[2023-04-12 15:00] VITALS: BP 187/114; PULSE 130; RESP 24; TEMP 37.4; O2SAT 97
[2023-04-12 16:32] LABS: Abs Immature Grans 0.05 10^3/uL (0.0-0.06); Absolute Basophil Count 0.11 10^3/uL (0.0-0.2); Absolute Eosinophil Count 0.26 10^3/uL (0.0-0.7); Absolute Lymphocyte Count 3.03 10^3/uL (1.2-3.4); Absolute Monocyte Count 0.84 10^3/uL (0.1-0.8); Absolute Neutrophil Count 6.49 10^3/uL (1.2-6.7); Eosinophils % 2.4; HCT 47.4 % (36.0-46.0); HGB 15.9 g/dL (11.2-15.7); Immature Grans % 0.5; Lymphocytes % 28.1; MCH 30.5 pg (27.0-33.0); MCHC 33.5 % (32.0-36.0); MCV 91 fL (80-95); MPV 9.8 fL (8.0-11.0); Monocytes % 7.8; Neutrophils % 60.2; Platelet Count 376 10^3/uL (130-400); RBC 5.21 10^6/uL (3.93-5.22); RDW 15.2 % (11.7-14.6); RDW-SD 50.9 fL; WBC 10.78 10^3/uL (4.4-10.8)
[2023-04-12 16:44] LABS: Bilirubin Negative (Negative); Blood Negative (Negative); Clarity Clear (Clear); Glucose Negative (Negative); Ketones Negative (Negative); Leukocyte Esterase Negative (Negative); Nitrite Negative (Negative); Urobilinogen 0.2 mg/dL (Up to 0.2); pH 5.5 (5-8)
[2023-04-12 16:52] LABS: ALT 33 U/L (14-59); AST 17 U/L (15-37); Albumin 3.6 g/dL (3.4-5.0); Alkaline Phosphatase 78 U/L (46-116); Anion Gap 11.7 mmol/L (3-11); BUN 6 mg/dL (7-18); Bilirubin, Total 0.2 mg/dL (0.2-1.0); CO2 26.3 mmol/L (21.0-32.0); CREATININE 0.9 mg/dL (0.55-1.02); Calcium 9.3 mg/dL (8.5-10.1); Chloride 106 mmol/L (98-107); Estimated GFR 82.37 (mL/min/1.73m2); Glucose 87 mg/dL (74-106); Lipase 29 U/L (16-77); Potassium 3.5 mmol/L (3.5-5.1); Sodium 144 mmol/L (136-145); Total Protein 7.4 g/dL (6.4-8.2)
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
--- NOTE | 2023-04-12 18:28 | NUR.NOTE ---
Nursing Note: This RN attempted to administer medication to the patient and patient refused and stated that she would follow up with her primary care provider. Pt left yelling that she was tired of sitting in the room for 6 hours.
[2023-04-12 18:34] VITALS: BP 187/114; PULSE 130; RESP 24; TEMP 37.4; O2SAT 97
[2023-04-14 09:51] LABS: HIV-1/2 Ag & Ab Screen Negative (Negative)
[2023-04-14 10:28] LABS: Hepatitis A Antibody IgM Negative (Negative); Hepatitis B Core Antibody Negative (Negative); Hepatitis B surface Ag Negative (Negative); Hepatitis C Ab w Rflx HCV PCR Negative (Negative)
[2023-04-14 12:22] LABS: HIV 1 RNA Qualitative Undetected copies/mL (Undetected)
[2023-04-14 14:13] LABS: Chlamydia Result Negative (Negative); GC Result Negative (Negative)
== END 2023-04-12 18:37 | disposition home or self-care (01) ==
PROVIDERS: Emergency Provider Emergency Medicine Emergency Medical Services; PCP Nurse Practitioner Family
DX: T74.21XA Adult sexual abuse, confirmed, initial encounter (principal)
CPT/HCPCS: 80053; 81025; 83690; 86704; 86709; 86803; 87340; 87389; 87491; 87536; 87591; 90471; 99291; 81003; 85025; 87480; 87510; 87660

== ENCOUNTER 2023-05-29 22:55 | Emergency (ER) | payer MEDICARE, SELFPAY ==
[2023-05-29 22:59] VITALS: BP 186/108; PULSE 118; RESP 16; TEMP 36.1; O2SAT 96
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
[2023-05-29 23:09] VITALS: BP 186/108; PULSE 114; RESP 24; TEMP 36.1; O2SAT 96
[2023-05-29 23:11] VITALS: RESP 24
[2023-05-30 00:05] LABS: Abs Immature Grans 0.04 10^3/uL (0.0-0.06); Absolute Eosinophil Count 0.46 10^3/uL (0.0-0.7); Absolute Lymphocyte Count 4.07 10^3/uL (1.2-3.4); Absolute Neutrophil Count 7.14 10^3/uL (1.2-6.7); Basophils % 1.2; Eosinophils % 3.6; HCT 45.6 % (36.0-46.0); HGB 15.6 g/dL (11.2-15.7); Immature Grans % 0.3; Lymphocytes % 31.7; MCH 30.8 pg (27.0-33.0); MCHC 34.2 % (32.0-36.0); MCV 90 fL (80-95); MPV 10.2 fL (8.0-11.0); Monocytes % 7.6; Neutrophils % 55.6; Platelet Count 300 10^3/uL (130-400); RBC 5.07 10^6/uL (3.93-5.22); RDW 15.3 % (11.7-14.6); RDW-SD 50.7 fL; WBC 12.84 10^3/uL (4.4-10.8)
[2023-05-30 00:06] LABS: Absolute Basophil Count 0.15 10^3/uL (0.0-0.2); Absolute Monocyte Count 0.98 10^3/uL (0.1-0.8)
[2023-05-30] MEDS: Pantoprazole 40 MG VIAL IVP (00:17)
[2023-05-30 00:19] LABS: INR 1.1 (0.9-1.1); PTT Activated 25.9 sec (23.6-32.8); Prothrombin Time 11.2 sec (9.1-11.1)
[2023-05-30 00:25] LABS: ETHANOL BLOOD 152.3 mg/dL (<10)
[2023-05-30 00:29] LABS: ALT 47 U/L (14-59); AST 35 U/L (15-37); Albumin 3.5 g/dL (3.4-5.0); Alkaline Phosphatase 77 U/L (46-116); Anion Gap 13.5 mmol/L (3-11); BUN 9 mg/dL (7-18); Bilirubin, Total 0.3 mg/dL (0.2-1.0); CO2 23.5 mmol/L (21.0-32.0); CREATININE 0.7 mg/dL (0.55-1.02); Calcium 8.6 mg/dL (8.5-10.1); Chloride 104 mmol/L (98-107); Estimated GFR 111.36 (mL/min/1.73m2); Glucose 97 mg/dL (74-106); Lipase 46 U/L (16-77); Potassium 3.6 mmol/L (3.5-5.1); Sodium 141 mmol/L (136-145); Total Protein 7.3 g/dL (6.4-8.2)
[2023-05-30 00:57] LABS: COVID-19 PCR Negative (Negative); Influenza A PCR Negative (Negative); Influenza B PCR Negative (Negative); RSV PCR Negative (Negative)
[2023-05-30 00:59] LABS: Source Nasopharynx
[2023-05-30 02:12] LABS: Bilirubin Negative (Negative); Blood Negative (Negative); Clarity Sl Cloudy (Clear); Glucose Negative (Negative); Ketones Negative (Negative); Leukocyte Esterase Negative (Negative); Nitrite Negative (Negative); Specific Gravity <= 1.005 (1.005-1.025); Urobilinogen 0.2 mg/dL (Up to 0.2); pH 5.5 (5-8)
[2023-05-30 02:25] VITALS: BP 148/71; PULSE 82; RESP 14; O2SAT 96
--- NOTE | 2023-05-30 02:25 | NUR.NOTE ---
Referrals sent to [facility] to f/u soonest available for GI Bleed, and [facility] for f/u soonest available heart stopped during endoscopy.Nursing Note:
== END 2023-05-30 02:35 | disposition home or self-care (01) ==
PROVIDERS: Emergency Provider Emergency Medicine Emergency Medical Services; PCP Nurse Practitioner Family
DX: F10.120 Alcohol abuse with intoxication, uncomplicated (principal); K29.61 Other gastritis with bleeding; Y90.6 Blood alcohol level of 120-199 mg/100 ml; Z11.52 Encounter for screening for COVID-19; Z79.899 Other long term (current) drug therapy
CPT/HCPCS: 36415; 80053; 83690; 86850; 86900; 86901; 87637; 96374; 99283; 80320; 81003; 85025; 85610; 85730

== ENCOUNTER 2023-06-28 22:21 | Emergency (ER) | payer MEDICARE, SELFPAY ==
[2023-06-28 22:25] VITALS: BP 140/77; PULSE 78; RESP 18; TEMP 37; O2SAT 97
--- NOTE | 2023-06-28 22:30 | DI.CT_ITS ---
Exam(s) CT HEAD WO EXAM: CT HEAD WO CLINICAL HISTORY: Headache. TECHNIQUE: Imaging Protocol: Axial computed tomography images with coronal and sagittal reformatted images were created and reviewed COMPARISON: CT CT HEAD WO from 11/14/2022 FINDINGS: There are no skull fractures. There is no fluid in the visualized paranasal sinuses. There is no evidence of intracranial hemorrhage, mass effect, or shift of midline structures. There are no extra-axial fluid collections. The ventricles are not enlarged or shifted and there is no blo od within the ventricular system nor within the basal cisterns. IMPRESSION: No acute intracranial findings on this noninfused CT scan of the brain. RADIATION DOSE DELIVERED: 692.14mGy.cm Total DLP DATA REPOSITORY: All CT scans at this facility are submitted to the National Radiology Data Registry (NRDR) Dose Index Registry (DIR) with the [employer] ([employer]). RADIATION OPTIMIZATION: All CT scans at this facility use at least one of these dose optimization te chniques: automated exposure control; mA and/or kV adjustment per patient size (includes targeted exa ms where dose is matched to clinical indication); or iterative reconstruction.
--- NOTE | 2023-06-28 22:46 | ED.GENADUL_ITS ---
HPI General Mode of arrival: ambulatory . Date/Time Provider Initiated Documentation: 06/28/23 22:23 . Limitations to Documentation: no limitations . Information obtained by: patient, RN notes reviewed and old records reviewed . HPI Narrative: 42-year-old female presents to the ER with chief complaint of headache x 1 week. She describes it as an ice pick stabbing into her roman catholic, she reports it began last Tuesday started on the left and is now on her right side of her head. Denies any head injuries. Associated with nausea and blurry vision. Denies any neck pain. Patient reports marijuana and alcohol. She did take Tylenol and ibuprofen prior to arrival. She does have a past medical history of bipolar 1 disorder, polycythemia vera, GERD, anxiety, alcohol abuse and PTSD. She has had a hysterectomy. No focal neurodeficits noted on exam, she is alert and oriented x 4 speaking in complete sentences. She reports she does have a history of migraines. Related Data Allergies Allergy/AdvReac Type Severity Reaction Status Date / Time pineapple Allergy Severe Anaphylaxis Verified 06/28/23 22:33 propranolol Allergy Severe Verified 06/28/23 22:33 mirtazapine [From Remeron] Allergy Mild Verified 06/28/23 22:33 trazodone AdvReac Mild Hallucinati Unverified 06/28/23 22:33 ons walnuts Allergy Severe Anaphylaxis Uncoded 06/28/23 22:33 Trazodone HCL Allergy Mild Uncoded 06/28/23 22:33 General Stated Complaint: Headache BETSY: 3 Review of Systems All systems reviewed & are unremarkable except as noted in HPI and below Constitutional Constitutional: Reports headache(s) ENT Ears, Nose, Mouth, and Throat: Reports headache(s) Gastrointestinal Gastrointestinal: Reports nausea Neurologic Neurologic: Reports headache(s) PFSH All Active Problems (Updated 06/30/23 @ 00:04 by ALANA VALVERDE) Migraine headache without aura (Acute) Status migrainosus (Acute) Photophobia (Acute) Phonophobia (Acute) Hypomagnesemia (Acute) Headache (Acute) Medical History Paranoia Lumbar back pain Headache Tobacco abuse Bipolar 1 disorder, mixed Snoring Shortness of breath Occasional tremors Obesity Polycythemia vera Mixed stress and urge urinary incontinence Dysphagia GERD (gastroesophageal reflux disease) Acquired syphilis Anxiety History of asthma Alcohol abuse PTSD (post-traumatic stress disorder) Surgical History Ligation of fallopian tube Singh Fundoplication 2005 Vaginal hysterectomy (06/17/15) Ovary sparing Endometrial Ablation (03/28/15) EGD - MAC (02/18/16) Release for de Quervain's tenosynovitis of hand 2009 LEFT WRIST Family History Maternal Aunt Neoplasm breast ca Maternal Aunt Neoplasm breast ca Social History Smoking/Tobacco Use Status: Current every day Tobacco Type: cigarettes Smoking risk assessment performed?: Yes Alcohol Intake: current Alcohol type: beer Drug use: Occasionally Substance use type: former substance user, marijuana and crack/cocaine Details: former crack/cocaine user Do you feel safe at home: Yes Do you feel safe in your relationship?: No Female Reproductive History Menstrual Menopause type: surgical Exam Narrative Exam Narrative: Constitutional: Alert and oriented x3. Appears stated age. Normal body habitus. Head: Normocephalic, no trauma. Eyes: Pupils PERRL, Red reflex noted, EOM's intact. Eyelids symmetrical without lesions, discharge, or swelling. ENT: Bilateral TM's WNL, External ear normal to inspection, no mastoid TTP, swelling, or erythema, Nasal turbinates WNL, no nasal discharge. Normal dent ition, Posterior pharynx WNL, no exudate. Chest: RRR, Normal S1, S2, distal pulses intact. Resp: Lungs clear to auscultation bilaterally, no wheezes, rales, or rhonchi. Abdomen: Soft, non-distended, Normoactive bowel sounds all 4 quads. Musculoskeletal: Normal gait, 5/5 strength to all four extremities. Skin: No suspicious rashes or lesions. Capillary refill less than 2 sec. Neurologic: Cranial nerves II-XII intact. Alert and oriented x 3. Motor: No deficits noted. Sensory: Intact bilaterally all 4 extremities. Reflexes: DTR's intact bilaterally.. Hematologic/Lymphatic: No ecchymosis, no lymphadenopathy. Course Vital Signs Vital signs: Vital Signs Temperature 37.0 C 06/28/23 22:25 Pulse 78 06/28/23 22:25 Respiratory Rate 18 06/28/23 22:25 Blood Pressure 140/77 06/28/23 22:25 Pulse Oximetry 97 06/28/23 22:25 Temperature 37.0 C 06/28/23 22:25 Pulse 78 06/28/23 22:25 Respiratory Rate 18 06/28/23 22:25 Respiratory Effort Normal 06/28/23 22:30 Blood Pressure 140/77 06/28/23 22:25 Blood Pressure Position Sitting 06/28/23 22:25 Pulse Oximetry 97 06/28/23 22:25 Oxygen Delivery Method Room Air 06/28/23:25 Oxygen Flow Rate 0 06/28/23: Pain Level 10 06/28/23 22:25 Medical Decision Making 42-year-old female presents to the ER with chief complaint of headache x 1 week. She describes it as an ice pick stabbing into her roman catholic, she reports it began last Tuesday started on the left and is now on her right side of her head. Denies any head injuries. Associated with nausea and blurry vision. Denies any neck pain. Patient reports marijuana and alcohol. She did take Tylenol and ibuprofen prior to arrival. She does have a past medical history of bipolar 1 disorder, polycythemia vera, GERD, anxiety, alcohol abuse and PTSD. She has had a hysterectomy. No focal neurodeficits noted on exam, she is alert and oriented x 4 speaking in complete sentences. She reports she does have a history of migr aines. Workup ordered including CBC CMP, UDS, ethyl alcohol level liter of normal saline, Zofran and Toradol and head CT. 2319: Patient reports her head is still throbbing, Compazine and benadryl or dered. Patient refusing benadryl and compazine, CBC shows slightly elevated white blood cell count level of 12.08, absolute lymphocytes 4.13 neutrophils within normal limits, CMP largely within normal limits, ethyl alcohol is 42.7. CT head within normal limits. No evidence of mass hemorrhage. Please see official report. Patient discharged with general headache instructions in the care of her significant other with instructions to follow-up with her PCP, given strict return instructions. This text was generated using [employer] system, please disregard any oddities of phrase or misspellings. Patient remained hemodynamically stable alert and oriented throughout the remainder of her stay. Imaging Data Radiologic Study: Imaging: CT Scan Radiologist's impression: Exam date and time: 06/28/2023 10:59 PM Age: 42 years old Clinical indication: Pa in; Headache TECHNIQUE: Imaging protocol: Computed tomography of the head without contrast. COMPARISON: CT HEAD WO 11/14/2022 10:32 PM FINDINGS: Brain: Normal. No hemorrhage. Unremarkable white matter. No mass effect. Cerebral ventricles: No ventriculomegaly. Paranasal sinuses: Visualized sinuses are unremarkable. No fluid levels. Mastoid air cells: Visualized mastoid air cells are well aerated. Bones/joints: Unremarkable. No acute fracture. Soft tissues: Unremarkable. IMPRESSION: No acute intracranial abnormality. Thank you for allowing us to participate in the care of your patient. Dictated and Authenticated by: Alexandro Kearney MD Quality:[facility] Health Related Social Needs: No Data to Display Discharge Plan Disposition Patient Disposition: Home Condition: Stable Discharge Details Clinical Impression: Headache Primary Care Provider: Saniya Pascual ED Provider: Ni Rodriguez Discharge Instructions Instructions: General Headache (ED) Additional Instructions: The CT is within normal limits. Please take Tylenol or Ibuprofen with food every 4-6 hours as needed for pain and swelling. Follow up with primary care provider in 3-5 days. Return to ED sooner if any worsening or concerns. Increase oral fluids. Referrals: Saniya Pascual [Primary Care Provider] - 3 days Discharge Data Discharge Date/Time-TO BE ENTERED AT DEPARTURE: 06/29/23 00:03
[2023-06-28] MEDS: Normal Saline 1,000 ML 1000 ML IV (22:51)
[2023-06-28] MEDS: Ketorolac 15 MG/ML VIAL IVP (22:51)
[2023-06-28] MEDS: Ondansetron 4 MG/2 ML VIAL IVP (22:51)
[2023-06-28 22:52] LABS: Abs Immature Grans 0.04 10^3/uL (0.0-0.06); Absolute Eosinophil Count 0.37 10^3/uL (0.0-0.7); Absolute Lymphocyte Count 4.13 10^3/uL (1.2-3.4); Absolute Monocyte Count 1.04 10^3/uL (0.1-0.8); Absolute Neutrophil Count 6.35 10^3/uL (1.2-6.7); Basophils % 1.2; Eosinophils % 3.1; HCT 46.2 % (36.0-46.0); HGB 15.5 g/dL (11.2-15.7); Immature Grans % 0.3; Lymphocytes % 34.2; MCH 30.3 pg (27.0-33.0); MCHC 33.5 % (32.0-36.0); MCV 90 fL (80-95); MPV 10.1 fL (8.0-11.0); Monocytes % 8.6; Neutrophils % 52.6; Platelet Count 314 10^3/uL (130-400); RBC 5.11 10^6/uL (3.93-5.22); RDW 14.5 % (11.7-14.6); RDW-SD 48.4 fL; WBC 12.08 10^3/uL (4.4-10.8)
[2023-06-28 22:53] LABS: Absolute Basophil Count 0.14 10^3/uL (0.0-0.2)
--- NOTE | 2023-06-28 23:12 | DI.VRAD_ITS ---
PROCEDURE INFORMATION: Exam: CT Head Without Contrast Exam date and time: 06/28/2023 10:59 PM Age: 42 years old Clinical indication: Pain; Headache TECHNIQUE: Imaging protocol: Computed tomography of the head without contrast. COMPARISON: CT HEAD WO 11/14/2022 10:32 PM FINDINGS: Brain: Normal. No hemorrhage. Unremarkable white matter. No mass effect. Cerebral ventricles: No ventriculomegaly. Paranasal sinuses: Visualized sinuses are unremarkable. No fluid levels. Mastoid air cells: Visualized mastoid air cells are well aerated. Bones/joints: Unremarkable. No acute fracture. Soft tissues: Unremarkable. IMPRESSION: No acute intracranial abnormality. Dictated and Authenticated by: Alexandro Kearney MD. Ordering:YRIS Dan MD
[2023-06-28 23:39] LABS: ETHANOL BLOOD 42.7 mg/dL (<10)
[2023-06-29 00:05] LABS: ALT 26 U/L (14-59); AST 22 U/L (15-37); Albumin 3.4 g/dL (3.4-5.0); Alkaline Phosphatase 59 U/L (46-116); Anion Gap 7.9 mmol/L (3-11); BUN 6 mg/dL (7-18); Bilirubin, Total 0.3 mg/dL (0.2-1.0); CO2 24.1 mmol/L (21.0-32.0); CREATININE 0.8 mg/dL (0.55-1.02); Calcium 8.9 mg/dL (8.5-10.1); Chloride 105 mmol/L (98-107); Estimated GFR 94.87 (mL/min/1.73m2); Glucose 86 mg/dL (74-106); Potassium 4.4 mmol/L (3.5-5.1); Sodium 137 mmol/L (136-145); Total Protein 7.2 g/dL (6.4-8.2)
== END 2023-06-29 00:03 | disposition home or self-care (01) ==
PROVIDERS: Emergency Provider Registered Nurse Emergency; PCP Nurse Practitioner Family
DX: R51.9 Headache, unspecified (principal); F17.210 Nicotine dependence, cigarettes, uncomplicated
CPT/HCPCS: 80053; 96361; 96374; 96375; 99284; 70450; 80320; 85025; J1885; J2405

== ENCOUNTER 2023-09-07 21:00 | Emergency (ER) | payer MEDICARE, MEDICAID, SELFPAY ==
[2023-09-07 21:02] VITALS: BP 166/82; PULSE 93; RESP 20; TEMP 36.3; O2SAT 97
--- NOTE | 2023-09-07 22:00 | DI.RAD_ITS ---
Exam(s) XR ANKLE LT COMPLETE EXAM: XR ANKLE LT COMPLETE CLINICAL HISTORY: pain lateral 3 wks, no known injury TECHNIQUE: 2D digital imaging was performed of the left ankle. Three images were obtained. AP, lat eral and oblique views were obtained. COMPARISON: No exams were available for comparison FINDINGS: BONES: No acute fracture is present. No bony destructive lesion is seen. JOINTS:The ankle mortise is normally aligned. SOFT TISSUE: Mild soft tissue swelling around the ankle. There is a nonspecific round soft tissue de nsity anterior to the ankle. It appears noncalcified. IMPRESSION: No acute fracture or dislocation. DATA REPOSITORY: RADIATION DOSE DELIVERED:
[2023-09-07] MEDS: Ketorolac 30 MG/ML VIAL IM (22:21)
--- NOTE | 2023-09-07 22:44 | ED.GENADUL_ITS ---
Discharge Plan Disposition Patient Disposition: Home Condition: Stable Discharge Details Clinical Impression: Left lateral ankle pain Primary Care Provider: Saniya Pascual ED Provider: Glenroy Dejesus Discharge Instructions Instructions: Ankle Sprain (ED) Additional Instructions: Please use walking boot and crutches. You may weight-bear as tolerated. Rest your ankle over the next 1 to 2 weeks. Please take ibuprofen over the counter. Take 600mg by mouth every 6 hours as needed for pain. Please contact your primary care physician to arrange follow-up. Return to the ER immediately for any worsening or new concerning symptoms. Discharge Data Discharge Date/Time-TO BE ENTERED AT DEPARTURE: 09/07/23 23:24 HPI General Mode of arrival: ambulatory . Date/Time Provider Initiated Documentation: 09/07/23 21:55 . Limitations to Documentation: no limitations . Information obtained by: patient . HPI Narrative: 44-year-old female presents with chief complaint of ankle pain. Patient notes left anterior lateral ankle pain that started 3 weeks ago and has persisted. She does not recall any specific injury. No associated redness or fever. Related Data Allergies Allergy/AdvReac Type Severity Reaction Status Date / Time pineapple Allergy Severe Anaphylaxis Verified 06/28/23 22:33 propranolol Allergy Severe Verified 06/28/23 22:33 mirtazapine [From Remeron] Allergy Mild Verified 06/28/23 22:33 trazodone AdvReac Mild Hallucinati Unverified 06/28/23 22:33 ons walnuts Allergy Severe Anaphylaxis Uncoded 06/28/23 22:33 Trazodone HCL Allergy Mild Uncoded 06/28/23 22:33 General Stated Complaint: Orthopedic BETSY: 3 Review of Systems Constitutional Constitutional: Denies fever(s) Musculoskeletal Musculoskeletal: Reports as per HPI Exam Const General: cooperative and no acute distress Eyes Conjunctivae: normal conjunctivae Sclera: normal sclerae Cardio Rate: regular rate and not tachycardic Rhythm: regular rhythm Skin General skin exam: no rashes or lesions noted Extrem General: no edema Left lower extremity: ankle Details: tenderness Location: anterolaterally, no edema and abnormal ROM Details: pain with active ROM Details: with dorsiflexion and with eversion; no warmth and no ecchymosis and foot Details: normal to inspection Course Vital Signs Vital signs: Vital Signs Temperature 36.3 C L 09/07/23 21:02 Pulse 93 H 09/07/23 21:02 Respiratory Rate 20 09/07/23 21:02 Blood Pressure 166/82 H 09/07/23 21:02 Pulse Oximetry 97 09/07/23 21:02 Temperature 36.3 C L 09/07/23 21:02 Temperature Source Tympanic 09/07/23 21:02 Pulse 93 H 09/07/23 21:02 Respiratory Rate 20 09/07/23 21:02 Respiratory Effort Normal 09/07/23 21:06 Blood Pressure 166/82 H 09/07/23 21:02 Blood Pressure Position Sitting 09/07/23 21:02 Pulse Oximetry 97 09/07/23 21:02 Oxygen Delivery Method Room Air 09/07/23 21:02 Oxygen Flow Rate 0 09/07/23 21:02 Pain Level 9 09/07/23 21:02 Medical Decision Making [id number]?? 42-year-old female here with 3 weeks of pain in her left ankle with no recollection of specific injury. Patient is tender over anterior lateral ankle with no inflammatory changes. Patient neurovascular tact distally. -- X-ray of the ankle was reviewed and interpreted by radiology: No acute findings. I am concerned about subtle opacity noted anterior lateral soft tissue, possible calcification of the tendon. Plan for walking boot and crutches. Continue NSAIDs. Rest over the next week. Patient was instructed to follow-up with orthopedics should symptoms not improve. Usual customary discharge instructions were reviewed. Quality:SDOH Health Related Social Needs: No Data to Display PFSH All Active Problems (Updated 09/07/23 @ 23:05 by Glenroy Dejesus MD) Left lateral ankle pain (Acute) Migraine headache without aura (Acute) Status migrainosus (Acute) Photophobia (Acute) Phonophobia (Acute) Hypomagnesemia (Acute) Headache (Acute) Medical History Paranoia Lumbar back pain Headache Tobacco abuse Bipolar 1 disorder, mixed Snoring Shortness of breath Occasional tremors Obesity Polycythemia vera Mixed stress and urge urinary incontinence Dysphagia GERD (gastroesophageal reflux disease) Acquired syphilis Anxiety History of asthma Alcohol abuse PTSD (post-traumatic stress disorder) Surgical History Ligation of fallopian tube Singh Fundoplication 2005 Vaginal hysterectomy (06/17/15) Ovary sparing Endometrial Ablation (03/28/15) EGD - MAC (02/18/16) Release for de Quervain's tenosynovitis of hand 2009 LEFT WRIST Family History Maternal Aunt Neoplasm breast ca Maternal Aunt Neoplasm breast ca Social History Smoking/Tobacco Use Status: Current every day Tobacco Type: cigarettes Smoking risk assessment performed?: Yes Alcohol Intake: current Alcohol type: beer Drug use: Occasionally Substance use type: former substance user, marijuana and crack/cocaine Details: former crack/cocaine user Do you feel safe at home: Yes Do you feel safe in your relationship?: No Female Reproductive History Menstrual Menopause type: surgical
--- NOTE | 2023-09-07 22:58 | DI.VRAD_ITS ---
PROCEDURE INFORMATION: Exam: XR Left Ankle Exam date and time: 09/07/2023 10:31 PM Age: 42 years old Clinical indication: Pain; Ankle; Left; Additional info: Pain lateral 3 wks, no known injury TECHNIQUE: Imaging protocol: Radiologic exam of the left ankle. Views: 3 or more views. COMPARISON: No relevant prior studies available. FINDINGS: Bones/joints: Normal. Soft tissues: Normal. IMPRESSION: No acute findings. Dictated and Authenticated by: Glenroy Escobar MD. Ordering:JAYY Tim MD
--- NOTE | 2023-09-07 23:23 | NUR.NOTE ---
PT provided with walking boot to L foot. PMS intact. PT provided with crutches and crutch training. PT tolerated well Nursing Note:
--- NOTE | 2023-09-13 07:24 | NUR.NOTE ---
Accessed PT chart to obtain the diagnosis for the [facility] paperwork
== END 2023-09-07 23:24 | disposition home or self-care (01) ==
PROVIDERS: Emergency Provider Student in an Organized Health Care Education/Training Program; PCP Nurse Practitioner Family
DX: M25.572 Pain in left ankle and joints of left foot (principal)
CPT/HCPCS: 96372; 99283; 73610; J1885

== ENCOUNTER → 2023-09-09 00:27 | Outpatient (CLI) | payer MEDICARE, SELFPAY ==
--- NOTE | 2023-09-09 | DI.MAMMO_ITS ---
Exam(s) MAMMO SCREENING EXAM: MAMMO SCREENING CLINICAL HISTORY: SCREENING MAMMO FOR BREAST CANCER Z12.31,FAM H/O BREAST CA TECHNIQUE: Bilateral full field digital CC and MLO mammographic images were obtained with 3D tomosyn thesis and utilizing computer aided detection (CAD). COMPARISON: Available for comparison. FINDINGS: Masses/Architectural Distortion: None seen. Microcalcifications: No suspicious pleomorphic-type are seen. Skin Thickening/Nipple Retraction: None. IMPRESSION: 1. No significant interval change with no specific features of malignancy noted. 2. Unless there is more urgent need, screening mammography is recommended, as per [place] [employer] guidelines. BI-RADS Category 1 - Negative Breast Density - Category B - Scattered areas of fibroglandular density Breast density category C or D implies that the patient has dense breast tissue. Dense breast tissue is very common and is not abnormal but dense breast tissue can make it harder to find cancer on a ma mmogram. Also, dense breast tissue may increase their breast cancer risk. This information about the result of the mammogram report was provided to the patient to raise their awareness. Use this report when you speak with the patient about their risks for breast cancer, which includes their family hist ory. At that time, you may recommend for more screening tests (Ultrasound or MRI) as they might be us eful based on their risk. A negative radiographic report should not delay biopsy if a dominant or clinically suspicious mass is present. Up to ten percent of cancers are not identified on mammography. A negative report may reinforce clinical impression. Adenosis and dense breasts may obscure an underlying neoplasm. False positive reports average 6 to 10%. Patient will receive a letter notifying them of these results.
== END ==
PROVIDERS: PCP Nurse Practitioner Family; Visit Provider Nurse Practitioner Family
DX: Z12.31 Encounter for screening mammogram for malignant neoplasm of breast (principal)
CPT/HCPCS: 77063; 77067

== ENCOUNTER 2023-10-04 19:27 | Emergency (ER) | payer MEDICARE, MEDICAID, SELFPAY ==
[2023-10-04 19:30] VITALS: BP 203/110; PULSE 120; RESP 20; TEMP 36.3; O2SAT 95
--- NOTE | 2023-10-04 19:30 | RT.EKG_ITS ---
APPROVED REPORT Exam: Resting ECG Reason for Exam: pain Patient Location: E HR:102 bpm ECG Measurements Heart Rate 102 AXIS WY 144 P 55 QRSd 101 QRS -3 QT 345 T 44 QTc 451 Conclusion Sinus tachycardia at a rate of 102 without acute ischemic change.
--- NOTE | 2023-10-04 19:57 | DI.CT_ITS ---
Exam(s) CT CHEST PE ABD PELVIS W EXAM: CT CHEST PE ABD PELVIS W CLINICAL HISTORY: pleuritic CP, tachycardia, upper abd pain. TECHNIQUE: Imaging Protocol: Axial CT angiography was performed with multi-slice acquisition and mu lti-planar and/or 3D reconstructions. CONTRAST MATERIAL: Intravenous: Omnipaque 350contrast volume:165 mL COMPARISON: No exams were available for comparison FINDINGS: CHEST: Tracheobronchial tree: Patent where visualized. Pulmonary parenchyma: No consolidation or dominant measurable mass. No architectural distortion. Pulmonary Arteries: No evidence of a pulmonary embolism to the segmental level. Mediastinum and Shruthi: No dominant adenopathy or fluid collection. The esophagus is unremarkable. Visualized thyroid gland: Unremarkable. Pleura: No effusion or pneumothorax. Heart: The heart is not dilated. No coronary artery calcifications are seen. No pericardial effusion. Aorta: Thoracic aorta non-dilated. No evidence of dissection. Bones: Within normal limits for the patient's age. Soft tissues: Unremarkable. ABDOMEN: Liver: Normal density. No measurable mass. Portal, Superior Mesenteric, and Splenic Veins: Unremarkable. Gallbladder and Biliary Tract: No radiodense calculus or dilation. Pancreas: Normal density, no abnormal calcifications or inflammatory process. Spleen: Normal. Adrenals: No masses seen. Kidneys: Normal size, contour and axis. No radiodense stones or obstructive uropathy. No masses seen. Abdominal Aorta: Abdominal portion non-dilated. Bowel: No obstruction or bowel wall thickening. No evidence of appendicitis. There are few scattered diverticula in the colon but no evidence of acute diverticulitis. Peritoneal Cavity: No ascites, collection or mesenteric inflammatory response. No free air. Lymph Nodes: Within normal limits. Bones: Within normal limits for the patient's age. Soft Tissues: Unremarkable. PELVIS: Bladder: Symmetric distention, no gross wall thickening. Reproductive Organs: Status post hysterectomy. Lymph Nodes: Within normal limits. Bones: Within normal limits. IMPRESSION: 1. No evidence pulmonary embolism, thoracic aortic dissection or aneurysm. 2. No acute pulmonary process. 3. No acute abdominal or pelvic process. RADIATION DOSE DELIVERED: 2,463.09mGy.cm Total DLP DATA REPOSITORY: All CT scans at this facility are submitted to the National Radiology Data Registry (NRDR) Dose Index Registry (DIR) with the [employer] (A[employer]). RADIATION OPTIMIZATION: All CT scans at this facility use at least one of these dose optimization te chniques: automated exposure control; mA and/or kV adjustment per patient size (includes targeted exa ms where dose is matched to clinical indication); or iterative reconstruction.
--- NOTE | 2023-10-04 20:04 | ED.GENADUL_ITS ---
Discharge Plan Disposition Patient Disposition: Home Condition: Stable Discharge Details Clinical Impression: Pancreatitis Primary Care Provider: Saniya Pascual ED Provider: Anne Rodriguez Home Meds and New Rx's Prescriptions: No Action B-complex with vitamin C Tablet 1 tab PO DAILY benzonatate 100 mg capsule 100 mg PO TID PRN buspirone 10 mg tablet 10 mg PO TID PRN epinephrine [EpiPen 2-Castro] 0.3 mg/0.3 mL auto-injector 0.3 mg IM ONCE Rx Instructions: as a single dose; may repeat once esomeprazole magnesium [address] for susp in packet 40 mg PO DAILY loratadine 10 mg tablet 10 mg PO DAILY Hold Instructions: insuance not covering magnesium oxide 400 mg magnesium tablet 400 mg PO QHS Hold Instructions: patient state she is not taking Children's Multi-Vit Gummies 200 mcg tablet,chewable PO tiotropium bromide [Spiriva with HandiHaler] 18 mcg capsule, w/inhalation device 1 cap inhalation DAILY Rx Instructions: puncture 1 cap using device; one dose = 2 inhalations Discharge Instructions Instructions: Pancreatitis (ED), Clear Liquid Diet (ED) Additional Instructions: Please follow-up with your primary care provider. Start with a clear liquid diet and advance as tolerated. Return to the Emergency Department with any worsening symptoms or any other concerns. HPI General Date/Time Provider Initiated Documentation: 10/04/23 19:50 . HPI Narrative: The patient is a 42-year-old female with a history of PTSD, migraine headaches, anxiety, depression who comes the emergency department for abdominal pain and chest pain. The patient reports that on Tuesday she started out with abdominal pain worse if she eats all kinds of food. Reports that it has been a constant pain. Reports it starts in the mid upper abdomen and goes to the chest and the pain to her chest is worse when she takes a deep breath. Denies any cough, feve rs or chills. Denies shortness of breath. Denies eating unusual food or any known sick contacts. Denies urinary symptoms or concerns. Denies known history of cardiac or lung disease. Denies any family history of this because she is adopted. Reports he finally came into the emergency department today because she could no longer take it. Related Data Home Medications Medication Instructions Recorded Confirmed B-complex with vitamin C 1 tab PO DAILY 09/27/23 10/04/23 benzonatate 100 mg capsule 100 mg PO TID PRN 09/27/23 10/04/23 buspirone 10 mg tablet 10 mg PO TID PRN 09/27/23 10/04/23 epinephrine 0.3 mg/0.3 mL 0.3 mg IM ONCE 09/27/23 10/04/23 injection, auto-injector (EpiPen 2-Castro) esomeprazole magnesium 40 mg 40 mg PO DAILY 09/27/23 10/04/23 granules delayed release for susp loratadine 10 mg tablet 10 mg PO DAILY 09/27/23 10/04/23 magnesium oxide 400 mg PO QHS 09/27/23 10/04/23 pediatric multivitamin no.19-folic tab PO 09/27/23 acid 200 mcg chewable tablet (Children's Multi-Vitamin Gummies) tiotropium bromide 18 mcg capsule 1 cap inhalation DAILY 09/27/23 with inhalation device (Spiriva with HandiHaler) Allergies Allergy/AdvReac Type Severity Reaction Status Date / Time gabapentin Allergy Severe Psychosis Verified 10/04/23 20:38 pineapple Allergy Severe Anaphylaxis Verified 10/04/23 20:38 propranolol Allergy Severe Other (See Verified 09/27/23 13:28 Comment) mirtazapine [From Remeron] Allergy Mild Other (See Verified 10/04/23 20:38 Comment) trazodone AdvReac Mild Hallucinati Unverified 10/04/23 20:38 ons walnuts Allergy Severe Anaphylaxis Uncoded 10/04/23 20:38 Trazodone HCL Allergy Mild Other (See Uncoded 10/04/23 20:38 Comment) General Stated Complaint: Epigastric Pain/Over45 BETSY: 3 Review of Systems Narrative: Review of systems are negative except as mentioned. Exam Narrative Exam Narrative: The patient is in no acute distress. Oral mucosal membranes are moist. Patient is tachycardic but regular. Patient has mild wheezes otherwise lung sounds are benign. Abdomen is soft with normal bowel sounds but she does have epigastric tenderness to palpation without rebound tenderness, guarding or rigidity. No CVA tenderness is noted to palpation bilaterally. The patient has right anterior rib tenderness noted to palpation. No calf tenderness is noted to palpation bilaterally either. Patient has equal radial pulses. No midline C-spine tenderness is noted to palpation. Course Vital Signs Vital signs: Vital Signs Temperature 36.3 C L 10/04/23 19:30 Pulse 120 H 10/04/23 19:30 Respiratory Rate 20 10/04/23 19:30 Blood Pressure 203/110 H 10/04/23 19:30 Pulse Oximetry 95 10/04/23 19:30 Temperature 36.3 C L 10/04/23 19:30 Temperature Source Tympanic 10/04/23 19:30 Pulse 120 H 10/04/23 19:30 Respiratory Rate 20 10/04/23 19:30 Blood Pressure 203/110 H 10/04/23 19:30 Blood Pressure Position Sitting 10/04/23 19:30 Pulse Oximetry 95 10/04/23 19:30 Oxygen Delivery Method Room Air 10/04/23 19:30 Oxygen Flow Rate 0 10/04/23 19:30 Pain Level 9 10/04/23 19:30 Comment Has tried nexxium, maalox, APAP 10/04/23 19:30 Medical Decision Making EKG had been done on this patient and it is nondiagnostic. She is in sinus tachycardia at a rate of 102 without acute ischemic change. Given the location of her pain both abdominal and chest I ordered blood work and imaging study of her chest, abdomen and pelvis as well including CT angiography of her chest looking for PE. The patient's blood work is bad and overall is unremarkable apart from lipase elevation. CT is still pending at this point. CT is back and it is unremarkable. I have updated the patient and her partner of work-up result and of plan for discharge. She is encouraged to start with a clear liquid diet then advance as tolerated. She is asked to follow-up with her primary care doctor and return to the Emergency Department with any worsening symptoms or any other concerns. Patient reports history of polysubstance abuse, alcohol use for over 10 years with recreational drugs. Reports she is now sober and wishes to maintain sobriety therefore I did not prescribe any narcotic medication for her. She did request ibuprofen here so this is ordered for her. Imaging Data Radiologic Study: Imaging: CT Scan Radiologist's impression: CTA chest, CT of the abdomen and pelvis shows as interpreted by the radiologist: Chest: 1. No pulmonary artery embolism demonstrated. 2. No aortic aneurysm or dissection. 3. Small hiatal hernia. Abdomen and pelvis: 1. No acute findings. 2. Minimal hepatomegaly. Quality:SDOH Health Related Social Needs: No Data to Display PFSH All Active Problems (Updated 10/04/23 @ 23:21 by Anne Rodriguez DO) Pancreatitis (Chronic) Tobacco abuse (Acute) PTSD (post-traumatic stress disorder) (Acute) Lumbar back pain (Acute) GERD (gastroesophageal reflux disease) (Chronic) Dysphagia (Acute) Secondary syphilis (Acute) Palpitations (Acute) Neck pain (Acute 11/01/16) Migraine headache with aura (Acute) Malaise and fatigue (Acute) Lactose intolerance (Acute) Irregular bowel habits (Acute) Intestinal metaplasia of gastric mucosa (Acute) History of ETOH abuse (Acute) In remission on naltrexone Dizziness (Acute) Chronic neck pain (Acute) Bipolar disorder (Acute) Anxiety and depression (Chronic) Left lateral ankle pain (Acute) Migraine headache without aura (Acute) Status migrainosus (Acute) Photophobia (Acute) Phonophobia (Acute) Hypomagnesemia (Acute) Headache (Acute) Medical History Paranoia Lumbar back pain Headache Tobacco abuse Bipolar 1 disorder, mixed Snoring Shortness of breath Occasional tremors Obesity Polycythemia vera Mixed stress and urge urinary incontinence Dysphagia GERD (gastroesophageal reflux disease) Acquired syphilis Anxiety History of asthma Alcohol abuse PTSD (post-traumatic stress disorder) Surgical History Ligation of fallopian tube Singh Fundoplication 2005 Vaginal hysterectomy (06/17/15) Ovary sparing Endometrial Ablation (03/28/15) EGD - MAC (02/18/16) Release for de Quervain's tenosynovitis of hand 2009 LEFT WRIST Family History Maternal Aunt Neoplasm breast ca Maternal Aunt Neoplasm breast ca Social History Smoking/Tobacco Use Status: Current every day Tobacco Type: cigarettes Smoking risk assessment performed?: Yes Alcohol Intake: current Alcohol type: beer Drug use: Occasionally Substance use type: former substance user, marijuana and crack/cocaine Details: former crack/cocaine user Housing: apartment Do you feel safe at home: Yes Do you feel safe in your relationship?: No Female Reproductive History Menstrual Menopause type: surgical
[2023-10-04 21:11] LABS: Abs Immature Grans 0.03 10^3/uL (0.0-0.06); Absolute Eosinophil Count 0.24 10^3/uL (0.0-0.7); Absolute Lymphocyte Count 2.95 10^3/uL (1.2-3.4); Basophils % 0.9; Eosinophils % 1.9; HCT 40.8 % (36.0-46.0); HGB 13.5 g/dL (11.2-15.7); Immature Grans % 0.2; Lymphocytes % 23.3; MCH 29.9 pg (27.0-33.0); MCHC 33.1 % (32.0-36.0); MCV 90 fL (80-95); Monocytes % 7.9; Neutrophils % 65.8; RBC 4.52 10^6/uL (3.93-5.22); RDW 15.3 % (11.7-14.6); RDW-SD 50.6 fL; WBC 12.65 10^3/uL (4.4-10.8)
[2023-10-04 21:18] LABS: Absolute Basophil Count 0.11 10^3/uL (0.0-0.2); Absolute Neutrophil Count 8.32 10^3/uL (1.2-6.7)
[2023-10-04] MEDS: Normal Saline Flush 10 ML SYR IVP (21:21)
[2023-10-04] MEDS: Normal Saline - Diluent 50 ML VIAL IJ ×2 (21:22→22:04)
[2023-10-04] MEDS: Omnipaque 350 MG/ML 100 ML BTL IJ ×2 (21:23→22:05)
[2023-10-04 21:27] LABS: HCG Qual (Serum) Negative
[2023-10-04 21:39] LABS: Diff Comment PLT Morph Reviewed; RBC Morphology Normal
[2023-10-04 22:37] LABS: ALT 24 U/L (14-59); AST 11 U/L (15-37); Albumin 3.1 g/dL (3.4-5.0); Alkaline Phosphatase 64 U/L (46-116); Anion Gap 6.2 mmol/L (3-11); BUN 12 mg/dL (7-18); Bilirubin, Total 0.2 mg/dL (0.2-1.0); CO2 26.8 mmol/L (21.0-32.0); Calcium 8.6 mg/dL (8.5-10.1); Chloride 105 mmol/L (98-107); Estimated GFR 72.58 (mL/min/1.73m2); Glucose 93 mg/dL (74-106); Lipase > 375 U/L (16-77); Potassium 4.1 mmol/L (3.5-5.1); Sodium 138 mmol/L (136-145); Total Protein 6.2 g/dL (6.4-8.2); Troponin I < 50 ng/L (< or =60)
--- NOTE | 2023-10-04 23:17 | DI.VRAD_ITS ---
PROCEDURE INFORMATION: Exam: CTA Chest With Contrast Exam date and time: 10/04/2023 9:25 PM Age: 42 years old Clinical indication: Other: Pleuritic cp, tachycardia, upper abd pain TECHNIQUE: Imaging protocol: Computed tomographic angiography of the chest with contrast. Exam focused on the arteries. 3D rendering (Not supervised by radiologist): MIP and/or 3D reconstructed images were created by the technologist. Contrast material: OMNIPAQUE 350; Contrast volume: 165 ml; Contrast route: INTRAVENOUS (IV); COMPARISON: CR XR PORTABLE CHEST AP 11/10/2022 8:31 AM FINDINGS: Pulmonary arteries: No pulmonary artery filling defects. Aorta: No aortic aneurysm or dissection. Lungs: No parenchymal consolidation. Subcentimeter calcified granuloma in right lung. Pleural spaces: Unremarkable. No pneumothorax. No pleural effusion. Heart: Heart normal in size. Heart RV/LV ratio: 0.73. Coronary arteries: No coronary artery calcification. Lymph nodes: No adenopathy. Diaphragm: Small hiatal hernia. Bones/joints: Unremarkable. No acute fracture. Soft tissues: Unremarkable. IMPRESSION: 1. No pulmonary artery embolism demonstrated. 2. No aortic aneurysm or dissection. 3. Small hiatal hernia. PROCEDURE INFORMATION: Exam: CT Abdomen And Pelvis With Contrast Exam date and time: 10/04/2023 9:25 PM Age: 42 years old Clinical indication: Other: Pleuritic cp, tachycardia, upper abd pain TECHNIQUE: Imaging protocol: Computed tomography of the abdomen and pelvis with contrast. Contrast material: OMNIPAQUE 350; Contrast volume: 165 ml; Contrast route: INTRAVENOUS (IV); COMPARISON: CR XR PORTABLE CHEST AP 11/10/2022 8:31 AM FINDINGS: Liver: Minimal hepatomegaly. No mass. Gallbladder and bile ducts: Normal. No calcified stones. No ductal dilation. Pancreas: Normal. No ductal dilation. Spleen: Normal. No splenomegaly. Adrenal glands: Normal. No mass. Kidneys and ureters: Homogeneous enhancement of renal parenchyma. No hydronephrosis. Stomach and bowel: Unremarkable. No obstruction. No mucosal thickening. Appendix: No evidence of appendicitis. Intraperitoneal space: Unremarkable. No free air. No significant fluid collection. Vasculature: No aortic aneurysm or dissection. Lymph nodes: Unremarkable. No enlarged lymph nodes. Urinary bladder: Unremarkable as visualized. Reproductive: Prior hysterectomy. Bones/joints: The spine demonstrates mild degenerative changes at multiple levels. No acute fracture. Soft tissues: Unremarkable. IMPRESSION: 1. No acute findings. 2. Minimal hepatomegaly. Dictated and Authenticated by: Nacho Asencio MD. Ordering:RAD Rodríguez MD
[2023-10-04] MEDS: Ibuprofen 800 MG TAB PO (23:41)
== END 2023-10-04 23:42 | disposition home or self-care (01) ==
PROVIDERS: Emergency Provider Emergency Medicine; PCP Nurse Practitioner Family
DX: K85.90 Acute pancreatitis without necrosis or infection, unspecified (principal); R00.0 Tachycardia, unspecified; F17.210 Nicotine dependence, cigarettes, uncomplicated
CPT/HCPCS: 71275; 74177; 80053; 83690; 93005; 99285; 84484; 84703; 85025; 93010; 99284; J3490

== ENCOUNTER 2023-10-05 11:24 | Emergency (ER) | payer MEDICARE, MEDICAID, SELFPAY ==
[2023-10-05] VITALS (16 sets, daily range): BP systolic 173; BP diastolic 87; PULSE 62–88; RESP 12–25; TEMP 36.5; O2SAT 98
--- NOTE | 2023-10-05 12:14 | ED.GENADUL_ITS ---
Discharge Plan Disposition Patient Disposition: Home Condition: Improving Discharge Details Clinical Impression: Abdominal pain Primary Care Provider: Saniya Pascual ED Provider: Shelton Gardner Home Meds and New Rx's Prescriptions: New ondansetron 4 mg tablet,disintegrating 4 mg PO Q8H PRN (Reason: nausea and vomiting) 4 Days Qty: 7 0RF No Action B-complex with vitamin C Tablet 1 tab PO DAILY benzonatate 100 mg capsule 100 mg PO TID PRN buspirone 10 mg tablet 10 mg PO TID PRN epinephrine [EpiPen 2-Castro] 0.3 mg/0.3 mL auto-injector 0.3 mg IM ONCE Rx Instructions: as a single dose; may repeat once esomeprazole magnesium [address] for susp in packet 40 mg PO DAILY loratadine 10 mg tablet 10 mg PO DAILY Hold Instructions: insuance not covering magnesium oxide 400 mg magnesium tablet 400 mg PO QHS Hold Instructions: patient state she is not taking Children's Multi-Vit Gummies 200 mcg tablet,chewable PO Hold Instructions: Pt Stopped/Never Started tiotropium bromide [Spiriva with HandiHaler] 18 mcg capsule, w/inhalation device 1 cap inhalation DAILY Rx Instructions: puncture 1 cap using device; one dose = 2 inhalations Discharge Instructions Instructions: Abdominal Pain (ED) Additional Instructions: Please follow-up with GI specialist and primary care. Please return to the [facility] department for any worsening symptoms HPI General Date/Time Provider Initiated Documentation: 10/05/23 11:26 . HPI Narrative: 42-year-old female recently diagnosed with pancreatitis, presents with abdominal discomfort nausea decreased p.o. intake. Related Data Home Medications Medication Instructions Recorded Confirmed B-complex with vitamin C 1 tab PO DAILY 09/27/23 10/05/23 benzonatate 100 mg capsule 100 mg PO TID PRN 09/27/23 10/05/23 buspirone 10 mg tablet 10 mg PO TID PRN 09/27/23 10/05/23 epinephrine 0.3 mg/0.3 mL 0.3 mg IM ONCE 09/27/23 10/05/23 injection, auto-injector (EpiPen 2-Castro) esomeprazole magnesium 40 mg 40 mg PO DAILY 09/27/23 10/05/23 granules delayed release for susp loratadine 10 mg tablet 10 mg PO DAILY 09/27/23 10/05/23 magnesium oxide 400 mg PO QHS 09/27/23 10/05/23 pediatric multivitamin no.19-folic tab PO 09/27/23 acid 200 mcg chewable tablet (Children's Multi-Vitamin Gummies) tiotropium bromide 18 mcg capsule 1 cap inhalation DAILY 09/27/23 10/05/23 with inhalation device (Spiriva with HandiHaler) ondansetron 4 mg disintegrating 4 mg PO Q8H PRN nausea and 10/05/23 tablet vomiting 4 days #7 tabs Previous Rx's Medication Instructions Recorded ondansetron 4 mg disintegrating 4 mg PO Q8H PRN nausea and 10/05/23 tablet vomiting 4 days #7 tabs Allergies Allergy/AdvReac Type Severity Reaction Status Date / Time gabapentin Allergy Severe Psychosis Verified 10/05/23 11:29 pineapple Allergy Severe Anaphylaxis Verified 10/05/23 11:29 propranolol Allergy Severe Other (See Verified 10/05/23 11:29 Comment) mirtazapine [From Remeron] Allergy Mild Other (See Verified 10/05/23 11:29 Comment) trazodone AdvReac Mild Hallucinati Unverified 10/05/23 11:29 ons walnuts Allergy Severe Anaphylaxis Uncoded 10/05/23 11:29 Trazodone HCL Allergy Mild Other (See Uncoded 10/05/23 11:29 Comment) General Stated Complaint: Abd Prob BETSY: 3 Review of Systems Narrative: Review of Systems Constitutional: negative Eyes: negative ENT: negative Cardiovascular: negative Respiratory: negative Gastrointestinal: Abdominal pain, nausea : negative Musculoskeletal: negative Skin: negative Neurologic: negative Psych: negative Exam Narrative Exam Narrative: Physical Examination General: alert, awake, cooperative, resting comfortably, no acute distress HEENT: normocephalic, atraumatic; PERRL, EOM intact, conjunctiva normal; no nasal discharge; moist mucous membranes, oral and pharyngeal mucosa normal, tolerating secretions Neck: supple, trachea midline; full ROM Chest: normal to inspection Respiratory: normal respiratory effort, speaking in full sentences, clear to auscultation, no wheezing, rales or rhonchi Cardiac: regular rate, regular rhythm, S1S2 intact, no murmurs rubs or gallops GI: abdomen soft, non-tender, non-distended; no palpable mass or hepatosplenomegaly Skin: no lesions, rashes or trauma appreciated Neuro: AAOx3, normal speech, moving all extremities Psych: Appropriate mood and affect Course Vital Signs Vital signs: Vital Signs Temperature 36.5 C 10/05/23 11:27 Pulse 88 10/05/23 11:27 Respiratory Rate 18 10/05/23 11:27 Blood Pressure 173/87 H 10/05/23 11:27 Pulse Oximetry 98 10/05/23 11:27 Temperature 36.5 C 10/05/23 11:27 Temperature Source Skin 10/05/23 11:27 Pulse 88 10/05/23 11:27 Respiratory Rate 18 10/05/23 11:27 Respiratory Effort Normal, Non-Labored 10/05/23 11:30 Blood Pressure 173/87 H 10/05/23 11:27 Blood Pressure Position Sitting 10/05/23 11:27 Pulse Oximetry 98 10/05/23 11:27 Oxygen Delivery Method Room Air 10/05/23 11:27 Oxygen Flow Rate 0 10/05/23 11:27 Pain Level 8 10/05/23 11:27 Medical Decision Making 42-year-old female history of GERD, pancreatitis, presents with abdominal discomfort nausea decreased p.o. intake, passing stool no urinary symptoms, afebrile nontoxic nonperitoneal. Appears well-hydrated. Thorough evaluation yesterday showed elevated lipase with unremarkable CT chest abdomen pelvis. Consider acute on chronic GERD versus gastritis versus duodenitis versus pancreatitis versus gas versus constipation lower suspicion for bowel obstruction cholecystitis or appendicitis. Will repeat labs will provide hydration and GI cocktail. Low utility at this point for repeat imaging. 13: 38 patient resting comfortably no acute distress. No vomiting. Nonperitoneal. Quality:SDOH Health Related Social Needs: No Data to Display PFSH All Active Problems (Updated 10/05/23 @ 13:38 by Shelton Gardner MD) Abdominal pain (Acute) Pancreatitis (Chronic) Tobacco abuse (Acute) PTSD (post-traumatic stress disorder) (Acute) Lumbar back pain (Acute) GERD (gastroesophageal reflux disease) (Chronic) Dysphagia (Acute) Secondary syphilis (Acute) Palpitations (Acute) Neck pain (Acute 11/01/16) Migraine headache with aura (Acute) Malaise and fatigue (Acute) Lactose intolerance (Acute) Irregular bowel habits (Acute) Intestinal metaplasia of gastric mucosa (Acute) History of ETOH abuse (Acute) In remission on naltrexone Dizziness (Acute) Chronic neck pain (Acute) Bipolar disorder (Acute) Anxiety and depression (Chronic) Left lateral ankle pain (Acute) Migraine headache without aura (Acute) Status migrainosus (Acute) Photophobia (Acute) Phonophobia (Acute) Hypomagnesemia (Acute) Headache (Acute) Medical History Paranoia Lumbar back pain Headache Tobacco abuse Bipolar 1 disorder, mixed Snoring Shortness of breath Occasional tremors Obesity Polycythemia vera Mixed stress and urge urinary incontinence Dysphagia GERD (gastroesophageal reflux disease) Acquired syphilis Anxiety History of asthma Alcohol abuse PTSD (post-traumatic stress disorder) Surgical History Ligation of fallopian tube Singh Fundoplication 2005 Vaginal hysterectomy (06/17/15) Ovary sparing Endometrial Ablation (03/28/15) EGD - MAC (02/18/16) Release for de Quervain's tenosynovitis of hand 2009 LEFT WRIST Family History Maternal Aunt Neoplasm breast ca Maternal Aunt Neoplasm breast ca Social History Smoking/Tobacco Use Status: Current every day Tobacco Type: cigarettes Smoking risk assessment performed?: Yes Alcohol Intake: current Alcohol type: beer Drug use: Occasionally Substance use type: former substance user, marijuana and crack/cocaine Details: former crack/cocaine user Housing: apartment Do you feel safe at home: Yes Do you feel safe in your relationship?: No Female Reproductive History Menstrual Menopause type: surgical
[2023-10-05 12:25] LABS: Abs Immature Grans 0.03 10^3/uL (0.0-0.06); Absolute Basophil Count 0.11 10^3/uL (0.0-0.2); Absolute Eosinophil Count 0.24 10^3/uL (0.0-0.7); Absolute Lymphocyte Count 2.53 10^3/uL (1.2-3.4); Absolute Monocyte Count 0.97 10^3/uL (0.1-0.8); Absolute Neutrophil Count 7.03 10^3/uL (1.2-6.7); Eosinophils % 2.2; HCT 42.3 % (36.0-46.0); HGB 14.2 g/dL (11.2-15.7); Immature Grans % 0.3; Lymphocytes % 23.2; MCH 29.7 pg (27.0-33.0); MCHC 33.6 % (32.0-36.0); MCV 89 fL (80-95); MPV 10.7 fL (8.0-11.0); Monocytes % 8.9; Neutrophils % 64.4; Platelet Count 285 10^3/uL (130-400); RBC 4.78 10^6/uL (3.93-5.22); RDW 15.2 % (11.7-14.6); WBC 10.91 10^3/uL (4.4-10.8)
[2023-10-05 12:28] LABS: Bilirubin Negative (Negative); Blood Negative (Negative); Clarity Clear (Clear); Glucose Negative (Negative); Ketones Negative (Negative); Leukocyte Esterase Negative (Negative); Nitrite Negative (Negative); Specific Gravity 1.015 (1.005-1.025); Urobilinogen 0.2 mg/dL (Up to 0.2); pH 6.5 (5-8)
[2023-10-05] MEDS: LORazepam 2 MG/ML VIAL 1 MG IVP (12:28)
[2023-10-05] MEDS: Ondansetron 4 MG/2 ML VIAL IVP (12:30)
[2023-10-05] MEDS: Famotidine 20 MG/2 ML VIAL IVP (12:32)
[2023-10-05 12:41] LABS: ALT 32 U/L (14-59); AST 19 U/L (15-37); Albumin 3.7 g/dL (3.4-5.0); Alkaline Phosphatase 67 U/L (46-116); BUN 9 mg/dL (7-18); Bilirubin, Total 0.4 mg/dL (0.2-1.0); CREATININE 0.8 mg/dL (0.55-1.02); Calcium 9.4 mg/dL (8.5-10.1); Chloride 105 mmol/L (98-107); Estimated GFR 94.87 (mL/min/1.73m2); Glucose 85 mg/dL (74-106); Lipase > 375 U/L (16-77); Potassium 4.1 mmol/L (3.5-5.1); Sodium 141 mmol/L (136-145); Total Protein 7.6 g/dL (6.4-8.2)
== END 2023-10-05 14:12 | disposition home or self-care (01) ==
PROVIDERS: Emergency Provider Emergency Medicine; PCP Nurse Practitioner Family
DX: R10.9 Unspecified abdominal pain (principal); R11.0 Nausea
CPT/HCPCS: 36415; 80053; 81025; 83690; 96374; 96375; 99284; 81003; 85025; 99283; J2060; J2405

== ENCOUNTER 2023-10-06 09:14 | Outpatient (CLI) | payer MEDICARE, SELFPAY | END 2023-10-06 09:15 | disposition home or self-care (01) | LOC: DI.CARD 09:15 | PROVIDERS: PCP Nurse Practitioner Family; Visit Provider Internal Medicine Cardiovascular Disease | CPT/HCPCS: 93010 ==

== ENCOUNTER → 2023-10-06 13:49 | Outpatient (BNVA) | payer MEDICARE, MEDICAID, SELFPAY | PROVIDERS: PCP Nurse Practitioner Family; Referring Provider Nurse Practitioner Family; Visit Provider Internal Medicine Cardiovascular Disease | DX: Z01.810 Encounter for preprocedural cardiovascular examination (principal); K85.90 Acute pancreatitis without necrosis or infection, unspecified; Z86.79 Personal history of other diseases of the circulatory system | CPT/HCPCS: 99213 ==

== ENCOUNTER 2023-10-07 21:08 | Outpatient (REF) | payer MEDICARE, SELFPAY ==
[2023-10-07 21:25] LABS: HCT 46.5 % (36.0-46.0); HGB 15.5 g/dL (11.2-15.7); MCH 30.3 pg (27.0-33.0); MCHC 33.3 % (32.0-36.0); MCV 91 fL (80-95); MPV 11.6 fL (8.0-11.0); Platelet Count 312 10^3/uL (130-400); RBC 5.11 10^6/uL (3.93-5.22); RDW 15.3 % (11.7-14.6); RDW-SD 50.6 fL; WBC 10.42 10^3/uL (4.4-10.8)
[2023-10-07 21:31] LABS: Amylase 66 U/L (25-115); Lipase 223 U/L (16-77)
== END 2023-10-07 21:09 | disposition home or self-care (01) ==
LOC: NCHCN 21:08
PROVIDERS: PCP Nurse Practitioner Family; Visit Provider Nurse Practitioner Family
DX: R10.9 Unspecified abdominal pain (principal)
CPT/HCPCS: 83690; 85027; 82150

== ENCOUNTER 2023-11-28 14:43 | Outpatient (CLI) | payer MEDICARE, SELFPAY ==
--- NOTE | 2023-11-28 13:45 | DI.RAD_ITS ---
Exam(s) XR THUMB LT EXAM: XR THUMB LT CLINICAL HISTORY: LEFT THUMB/WRIST PAIN. TECHNIQUE: 2D digital imaging was performed. Three views. COMPARISON: None. FINDINGS: BONES: No acute fracture is present. No bony destructive lesion is seen. Cysts in the distal pole of the navicular. JOINTS: No dislocation present. Mild degenerative changes at the 1st carpal metacarpal joint and sca phoid trapezium trapezoid joint.. SOFT TISSUE: Normal. IMPRESSION: No evidence of acute fracture, dislocation, or subluxation. Mild degenerative changes. DATA REPOSITORY: RADIATION DOSE DELIVERED:
== END 2023-11-28 14:44 | disposition home or self-care (01) ==
LOC: DIORS 14:43
PROVIDERS: PCP Nurse Practitioner Family; Referring Provider Nurse Practitioner Family
DX: M65.4 Radial styloid tenosynovitis [de Quervain] (principal); G56.02 Carpal tunnel syndrome, left upper limb; R20.0 Anesthesia of skin; R20.2 Paresthesia of skin
CPT/HCPCS: 99213; 73140

== ENCOUNTER 2024-07-06 21:47 | Emergency (ER) | payer MEDICARE, MEDICAID, SELFPAY ==
--- NOTE | 2024-07-06 21:45 | RT.EKG_ITS ---
APPROVED REPORT Exam: Resting ECG Reason for Exam: syncopal episode Patient Location: E HR:86 bpm ECG Measurements Heart Rate 86 AXIS AR 128 P 63 QRSd 103 QRS 21 QT 362 T 49 QTc 434 Conclusion Sinus rhythm, rate 86 No interval abnormalities No STEMI
[2024-07-06 21:50] VITALS: BP 141/70; PULSE 90; RESP 17; TEMP 36.1; O2SAT 95
[2024-07-06 21:58] VITALS: BP 121/90; PULSE 87; RESP 14; RESP 17; TEMP 36.6; O2SAT 96
--- NOTE | 2024-07-06 22:18 | ED.GENADUL_ITS ---
Discharge Plan Disposition Patient Disposition: Home Condition: Stable Discharge Details Clinical Impression: COVID-19, Hypomagnesemia, Anxiety and depression, Malaise and fatigue, GERD (gastroesophageal reflux disease), PTSD (post-traumatic stress disorder), Syncope Primary Care Provider: Saniya Pascual ED Provider: Magayl Shin Home Meds and New Rx's Prescriptions: No Action epinephrine [EpiPen 2-Castro] 0.3 mg/0.3 mL auto-injector 0.3 mg IM ONCE Rx Instructions: as a single dose; may repeat once esomeprazole magnesium 40 mg capsule,delayed release(DR/EC) 40 mg PO DAILY Patient Comments: TAKE ONE CAPSULE BY MOUTH EVERY DAY famotidine 20 mg tablet 20 mg PO BID Patient Comments: TAKE ONE TABLET BY MOUTH TWICE A DAY Discharge Instructions Instructions: COVID-19 ED Additional Instructions: You were seen in the emergency department today for evaluation after a fainting episode. In our department you had a full physical examination performed, had laboratory studies that were most notable for a positive COVID-19 test. You have some very slight abnormalities in your calcium and magnesium but none are so severe that you cannot supplement them with a good diet. Please continue to maintain good hydration and nutrition, and keep your appointment with your primary care provider to discuss any other laboratory studies that you have done. Thank you for allowing us to be part of your care. HPI General Mode of arrival: ambulatory . Date/Time Provider Initiated Documentation: 07/06/24 21:51 . Limitations to Documentation: no limitations . Information obtained by: patient, family and old records reviewed . HPI Narrative: HPI: This is a 43-year-old female patient with past medical history significant for GERD, PTSD, migraine, alcohol use disorder in remission x 1 year, presenting for evaluation after syncopal episode. The patient reports that she was sitting on the toilet and had a sudden episode of feeling flushed, dizzy, and abdominal cramping. She states that she lost consciousness and her partner noted that she felt towards the right hand side, striking her head against the wall. He notes that she was unconscious for a very brief period of time, did have 1 or 2 beats of post syncopal convulsive movements, and awoke without a postictal phase. She has no history of syncope, this event was not preceded by any chest pain, but she does feel significantly anxious after this event, states that she feels like her heart is pounding out of her chest. She reports that she has had several months of body pain, worsening of her GERD, and has been working very hard to get evaluated by her outpatient providers for all of the symptoms. She has laboratory studies scheduled for Tuesday to evaluate for autoimmune disorders. The patient reports that she has had intermittent poor p.o. intake, but today felt very thirsty. She has not had dysuria but does feel like she has been going to the bathroom more frequently. She has had an occasional cough, and states that for the last 2 days she has noted that her body aches were worse and she did feel subjectively febrile last night. Exam: Gen: Awake and alert, in no apparent distress HEENT: Non-icteric sclera, PERRL, EOMs are full. No scalp atraumatic Neck: Supple, the patient has no midline cervical spine pain or step-offs but does have baseline paraspinal muscle tenderness which she reports has been present for several months Lungs: No apparent respiratory distress, normal respiratory effort. Lung sounds clear and equal without wheezes, rhonchi, rales CV: Appears well perfused, heart with regular rate and rhythm, strong distal pulses. No murmurs auscultated Abdomen: Non-distended, soft MSK: Moves 4 extremities without apparent limitation in ROM Skin: Visualized skin without rashes, cyanosis. Neuro: Normal Gait, no obvious focal deficits or facial asymmetry. Speaks in full, clear sentences. Cranial nerves II through XII intact and symmetrical bilaterally Psych: Appropriate for situation, anxiety and reports frequent PTSD triggers MDM: This is a 43-year-old female patient presenting for evaluation of syncope. My differential includes but is not limited to orthostasis, vasovagal syncope, certainly considered arrhythmia. The patient had no reported tonic-clonic activity or postictal phase to suggest seizure, and is without neurodeficit at this time to suggest stroke. I considered anemia, metabolic and electrolyte derangement, dehydration and kidney injury. I considered infection including URI and UTI. I obtained an EKG and reviewed it, which shows a normal sinus rhythm without evidence of ischemia, interval abnormality, or ectopy. We will obtain laboratory studies to include CBC, CMP, magnesium, and Fluvid. I will obtain a urinalysis and provide the patient with a dose of Tylenol for her body aches. ED Course: I independently interpreted the laboratory studies, which show no significant leukocytosis, anemia, or thrombocytopenia. The chemistry panel is without evidence of severe electrolyte abnormality, kidney dysfunction, or liver injury. The patient's mild hypomagnesemia and hypocalcemia were shared with her and I counseled her to increase her dietary sources of these electrolytes. Urinalysis is without evidence for infection, but her COVID test was positive. On reassessment the patient remains hemodynamically appropriate, was able to stand and ambulate without recurrence of orthostatic or syncopal symptoms, and she tolerated p.o. without difficulty. At this time, the patient has had a full medical evaluation and is safe for discharge to home. They are hemodynamically stable, ambulatory, and tolerating PO. They are understanding of the follow-up plan and return precautions. They left our facility without incident. Magaly Shin MD Related Data Home Medications ?Medication ?Instructions ?Recorded ?Confirmed epinephrine 0.3 mg/0.3 mL 0.3 mg IM ONCE 09/27/23 07/06/24 injection, auto-injector (EpiPen 2-Castro) esomeprazole magnesium 40 mg 40 mg PO DAILY 07/06/24 07/06/24 capsule,delayed release famotidine 20 mg tablet 20 mg PO BID 07/06/24 07/06/24 Allergies Allergy/AdvReac Type Severity Reaction Status Date / Time gabapentin Allergy Severe Psychosis Verified 07/06/24 22:02 pineapple Allergy Severe Anaphylaxis Verified 07/06/24 22:02 propranolol Allergy Severe Other (See Verified 07/06/24 22:02 Comment) mirtazapine (From Remeron) Allergy Mild Other (See Verified 07/06/24 22:02 Comment) trazodone AdvReac Mild Hallucinati Verified 07/06/24 22:02 ons walnuts Allergy Severe Anaphylaxis Uncoded 07/06/24 22:02 Trazodone HCL Allergy Mild Other (See Uncoded 07/06/24 22:02 Comment) General Stated Complaint: AMS/LOC BETSY: 3 Course Vital Signs Vital signs: Vital Signs Temperature 36.1 C L 07/06/24 21:50 Pulse 90 07/06/24 21:50 Respiratory Rate 17 07/06/24 21:50 Blood Pressure 141/70 H 07/06/24 21:50 Pulse Oximetry 95 07/06/24 21:50 Temperature 36.6 C 07/06/24 21:58 Temperature Source Temporal Artery Scan 07/06/24 21:58 Pulse 87 07/06/24 21:58 Respiratory Rate 14 07/06/24 21:58 Respiratory Effort Normal, Non-Labored 07/06/24 21:58 Respiratory Depth Normal 07/06/24 21:58 Respiratory Pattern Normal 07/06/24 21:58 Blood Pressure 121/90 07/06/24 21:58 Blood Pressure Position Sitting 07/06/24 21:58 Pulse Oximetry 96 07/06/24 21:58 Oxygen Delivery Method Room Air 07/06/24 21:58 Oxygen Flow Rate 0 07/06/24 21:50 Pain Level 8 07/06/24 21:58 Medical Decision Making Quality:SDOH Health Related Social Needs: No Data to Display PFSH All Active Problems (Updated 07/06/24 @ 23:23 by Magaly Shin MD) Syncope (Chronic) COVID-19 (Acute) Left carpal tunnel syndrome (Acute) Tobacco abuse (Acute) PTSD (post-traumatic stress disorder) (Acute) Lumbar back pain (Acute) GERD (gastroesophageal reflux disease) (Chronic) Dysphagia (Acute) Secondary syphilis (Acute) Neck pain (Acute 11/01/16) Migraine headache with aura (Acute) Malaise and fatigue (Acute) Lactose intolerance (Acute) Irregular bowel habits (Acute) Intestinal metaplasia of gastric mucosa (Acute) History of ETOH abuse (Acute) In remission on naltrexone Dizziness (Acute) Chronic neck pain (Acute) Bipolar disorder (Acute) Anxiety and depression (Chronic) Migraine headache without aura (Acute) Status migrainosus (Acute) Photophobia (Acute) Phonophobia (Acute) Hypomagnesemia (Acute) Headache (Acute) Medical History (Updated 07/06/24 @ 23:23 by Magaly Shin MD) De Quervain's disease (radial styloid tenosynovitis) Paranoia Lumbar back pain Headache Tobacco abuse Bipolar 1 disorder, mixed Snoring Shortness of breath Occasional tremors Obesity Polycythemia vera Mixed stress and urge urinary incontinence Dysphagia GERD (gastroesophageal reflux disease) Acquired syphilis Anxiety History of asthma Alcohol abuse PTSD (post-traumatic stress disorder) Surgical History Ligation of fallopian tube Singh Fundoplication 2005 Vaginal hysterectomy (06/17/15) Ovary sparing Endometrial Ablation (03/28/15) EGD - MAC (02/18/16) Release for de Quervain's tenosynovitis of hand 2009 LEFT WRIST Family History Maternal Aunt Neoplasm breast ca Maternal Aunt Neoplasm breast ca Social History Smoking/Tobacco Use Status: Current every day Tobacco Type: cigarettes Smoking risk assessment performed?: Yes Alcohol Intake: current Alcohol type: beer Drug use: Occasionally Substance use type: former substance user, marijuana and crack/cocaine Details: former crack/cocaine user Housing: apartment Do you feel safe at home: Yes Do you feel safe in your relationship?: No Female Reproductive History Menstrual Menopause type: surgical
[2024-07-06] MEDS: Acetaminophen 500 MG TAB 1000 MG PO (22:48)
[2024-07-06 22:52] LABS: Abs Immature Grans 0.03 10^3/uL (0.0-0.06); Absolute Basophil Count 0.08 10^3/uL (0.0-0.2); Absolute Eosinophil Count 0.09 10^3/uL (0.0-0.7); Absolute Lymphocyte Count 0.97 10^3/uL (1.2-3.4); Absolute Monocyte Count 1.05 10^3/uL (0.1-0.8); Absolute Neutrophil Count 4.63 10^3/uL (1.2-6.7); Basophils % 1.2 %; Eosinophils % 1.3 %; HGB 13.2 g/dL (11.2-15.7); Immature Grans % 0.4 %; Lymphocytes % 14.2 %; MCH 29.5 pg (27.0-33.0); MCHC 32.2 % (32.0-36.0); MCV 92 fL (80-95); MPV 10.6 fL (8.0-11.0); Monocytes % 15.3 %; Neutrophils % 67.6 %; Platelet Count 196 10^3/uL (130-400); RBC 4.47 10^6/uL (3.93-5.22); RDW 15.1 % (11.7-14.6); RDW-SD 51.2 fL; WBC 6.85 10^3/uL (4.4-10.8)
--- OUTSIDE RECORDS SUMMARY | 2024-07-06 22:52 | XMS_ITS | Encounter Summary ---
Author Organization [facility] Address [facility] [place] [address] Care Team Providers Care Shank Stitcher Name Role Phone Becca Dsouza APRN Primary Care Provider [phone] Encounter Details Date Type Department Care Team (Late st Contact Info) Description 03/26/2011 Orders Only Obstetrics [place] [address] Lila Godfrey MD [facility] [place] [address] Supervision of other normal ; Immunization due Social History Tobacco Use Types Packs/Day Years Used Date Smoking Tobacco: Former Smokeless Tobacco: Never Comments:recently quit Alcohol Use Standard Drinks/Week Comments No 0 (1 standard drink = 0.6 oz pur e alcohol) Comments Yes Sex and Gender Information Value Date Recorded Sex Assigned at Not on file Gender Identity Not on file Sexual Orientation Not on file documented as of this encounter Plan of Treatment Not on file documented as of this encounter Visit Diagnoses Diagnosis Supervision of other normal Immunization due Need for prophylactic vaccination and inoculation against unspecified single disease documented in this encounter Care Teams Shank Stitcher Relationship Specialty Start Date End Date Becca Dsouza APRN PCP - General 10/02/10 07/31/12 documented as of this encounter
--- OUTSIDE RECORDS SUMMARY | 2024-07-06 22:52 | XMS_ITS | Encounter Summary ---
Author Organization [facility] Address [facility] [place] [address] Care Team Providers Care Chemical Compounder Name Role Phone Becca Dsouza APRN Primary Care Provider [phone] Encounter Details Date Type Department Care Team (Late st Contact Info) Description 06/17/2011 External Results Obstetrics [place] [id number] Bert Childers, RN Social History Tobacco Use Types Packs/Day Years Used Date Smoking Tobacco: Former Cigarettes Smokeless Tobacco: Former Quit: 04/22/2011 Comments:recently quit Alcohol Use Standard Drinks/Week Comments No 0 (1 standard drink = 0.6 oz pur e alcohol) Comments Yes Sex and Gender Information Value Date Recorded Sex Assigned at Not on file Gender Identity Not on file Sexual Orientation Not on file documented as of this encounter Plan of Treatment Not on file documented as of this encounter Procedures Procedure Name Priority Date/Time Associated Diagnosis Comments SUBSEQUENT EXTERNAL RESULTS PANEL Routine 06/16/2011 documented in this encounter Results * (ABNORMAL) other labs (06/16/2011) Hemoglobin 12.3(Exte rnal Lab) 12.0 - 16.0 Hematocrit 36.6(Exte rnal Lab) 36.0 - 46.0 Platelet Group B Streptococcus Culture Glucose Fasting Glucose Post Prandial, 1 Hour 78(Side Laster al Lab) Glucose Post Prandial, 2 Hour Glucose 3 hour Protein, 24 Hour Urine Creatinine, 24 Hour Urine Creatinine 0.5 - 1.1 Aspartate Aminotransferase 13 - 35 Alanine Aminotransferase 7 - 35 Uric Acid Blood specimen (specimen) 06/16/2011 Deisy Castro MD POINT OF CARE TEST ORDERABLES documented in this encounter Visit Diagnoses Not on filedocumented in this encounter Care Teams Chemical Compounder Relationship Specialty Start Date End Date Becca Dsouza APRN PCP - General 10/02/10 07/31/12 documented as of this encounter
--- OUTSIDE RECORDS SUMMARY | 2024-07-06 22:52 | XMS_ITS | Encounter Summary ---
Author Organization [facility] Address [facility] [place] [address] Care Team Providers Care Cushion Maker Hand Name Role Phone Shruti Odom APRN Primary Care Provider [phone] Encounter Details Date Type Department Care Team (Late st Contact Info) Description 02/04/2016 [place] [address] Martínez Iraheta MD [facility] [place] [address] Social History Tobacco Use Types Packs/Day Years Used Date Smoking Tobacco: Every Day Cigarettes Smokeless Tobacco: Former Quit: 04/22/2011 Comments:recently quit Alcohol Use Standard Drinks/Week Comments No 0 (1 standard drink = 0.6 oz pur e alcohol) Sex and Gender Information Value Date Recorded Sex Assigned at Not on file Gender Identity Not on file Sexual Orientation Not on file documented as of this encounter Miscellaneous Notes * Telephone Encounter - Shruti Dunham RN - 02/04/2016 5:[address] Iraheta ?? As discussed she can try phenergan suppositories 25 mg VA Q6 hours prn for headache,nausea and sleep (sedating) to help break her migraine. As per my note she can call PCP office tomorrow to increase Imitrex tablets to 50mg (she was only taking 25mg) . Can you also check on her preventatives as per my intial consult note and how often she has been having migraines the last couple of months.Is she taking B2 and mag?Topamax could also beadded at 25mg , may increase to 50mg in 1 week (could prescribe that one tomorrow if needed). Call placed to patient and relayed the message above, patient will start taking B2 and magnesium for preventive headaches. Patient verb understanding and is agreeable to plan. * Telephone Encounter - Shruti Dunham RN - 02/04/2016 4:32 PM EDT Last appointment 11-13-2015 Caller: patient Reason for call: Headache returned today at 1 pm that originates from her forehead and radiates to the back of her neck. Headache is throbbing, intermittent, and patient rates headache 8/10. Patient denies changes in vision, but has photosensitivity. Patient had emesis last night, but states she is has an appointment with the Rf Test Engineer. Plan: Forward to Dr. Iraheta for review and comment. * Telephone Encounter - Renata Hollingsworth - 02/04/2016 2:09 PM EDT Pt calls in to say that she is still having horrible headaches and she cannot keep taking Advil forthese. Please call her back to discuss. documented in this encounter Plan of Treatment Not on file documented as of this encounter Visit Diagnoses Not on filedocumented in this encounter Care Teams Cushion Maker Hand Relationship Specialty Start Date End Date Shruti Odom APRN PCP - General Family Medicine 11/05/15 08/08/16 documented as of this encounter
--- OUTSIDE RECORDS SUMMARY | 2024-07-06 22:52 | XMS_ITS | Encounter Summary ---
Author Organization [facility] Address [facility] [place] [address] Care Team Providers Care Manager Primary Care Name Role Phone Becca Dsouza CARROT HARVESTER Primary Care Provider [phone] Encounter Details Date Type Department Care Team (Late st Contact Info) Description 07/26/2012 Telephone Obstetrics [place] [phone] Julia Rolon, RN Social History Tobacco Use Types Packs/Day [...] encounter Miscellaneous Notes * Telephone Encounter - Julia Rolon L - 07/26/2012 1:41 PM EST Date:07/26/2012 LMP 1/6-1/7 Days since LMP: today: 39 Date of Positive test: 07/24 ( x ) Home ( ) Office If has already had ultrasound: (date/results):n/a Blood type: O+ Quantitative BHCG (date/results):n/a Medications: 's and Protonix Allergies: Red Dye #5 Past Medical History/Hospitalizations: anxiety Past Surgical History: N/a The following criteria were reviewed: ~ Not more than 12 weeks from LMP ~No history of bleeding disorder; not on anticoagulants ~No known uterine abnormality options including continuing , adoption, medical , and surgical abortionreviewed and discussed. Patient opts for surgical . She has access to telephone and emergency transportation to the medical facility if needed. Patientunderstands that follow up visits to [facility] may be required. The current cost when not utilizing insurance will be $800 for a surgical termination. She understands [employer] [facility] will contact her within 24 hours to discuss insurance and/or payment options. Patient informed if she does nothear from PFS within 24 hours she should call our office. After PFS clearance, the triage office will contact you to arrange your scheduled appointment. She is aware that prescription pain medication or medications for nausea are NOT included in the package. Orders for CBC and T&S (NOTE: possible Rhogam may be required) and any other lab work that is ordered per provider. have been entered electronically for the lab and she has been instructed to have blood drawn beforeultrasound. She requests communication be at this #: [phone] Dating Ultrasound Appointment (to be done prior to counseling appt.) : 08/01 @ 9am Provider Appointment: 08/01@ 10 am and 2pm Two (2) Week Follow-up Appointment: Inquire if the patient has thought about any means of control: is getting vasectomy and patient would like tubal Additional Comments: documented in this encounter Plan of Treatment Not on file documented as of this encounter Visit Diagnoses Not on filedocumented in this encounter Care Teams Manager Primary Care Relationship Specialty Start Date End Date Becca Dsouza APRN PCP - General 10/02/10 07/31/12 documented as of this encounter
--- OUTSIDE RECORDS SUMMARY | 2024-07-06 22:52 | XMS_ITS | Encounter Summary ---
Author Organization [facility] [place] [address] Care Team Providers Care Glaze Carrier Name Role Phone Saniya Pascual APRN Primary Care Provider [phone] Reason for Referral * Consultation (Routine) - Closed Specialty Diagnoses / Procedures Referred By Contac t Referred To Contact Cardiology Diagnoses Pre-operative cardiovascular examination Palpitations PRE-OP clearance for endoscopy procedure. Palpitations. H/o complication @[facility] during prior [facility] 12/07/2016-pt went asystolic for 36 sec's. Saniya Pascual APRN [address] [place] [address] [facility] [address] [place] [id number] Referral ID Status Reason Start Date Expiration Date V isits Requested Visits Authorized [id number] Closed Consult, Test & Treat 09/23/2023 09/22/2024 1 1 Encounter Details Date Type Department Care Team (Latest Contact Info) Description 09/23/2023 Transcribe Orders eDH Incoming Referrals [phone] Saniya Pascual APRN [address] [place], [place] [id number] Pre-operative cardiovascular examination; Palpitations Social History Tobacco Use Types Packs/Day Years [...] as of this encounter Plan of Treatment Scheduled Referrals Name Type Priority Associated Diagnoses Orde r Schedule Referral to Cardiology Outpatient Referral Routine Pre-operative cardiovascular examination Palpitations Ordered: 09/23/2023 documented as of this encounter Visit Diagnoses Diagnosis Pre-operative cardiovascular examination Palpitations documented in this encounter Care Teams Glaze Carrier Relationship Specialty Start Date End Date Saniya Pascual APRN [address] [place] [address] PCP - General Family Medicine 03/29/19 documented as of this encounter
--- OUTSIDE RECORDS SUMMARY | 2024-07-06 22:52 | XMS_ITS | Encounter Summary ---
Author Organization [facility] [place] [address] Care Team Providers Care Network Support Engineer Name Role Phone Saniya Pascual APRN Primary Care Provider [phone] Encounter Details Date Type Department Care Team (Late st Contact Info) Description 01/06/2024 Telephone [place] [phone] Mona Jordan Social History Tobacco Use Types Packs/Day Years Used Date Smoking Tobacco: Every Day Cigarettes Smokeless Tobacco: Former Quit: 04/22/2011 Comments:recently quit Alcohol Use Standard Drinks/Week Comments No 0 (1 standard drink = 0.6 oz pur e alcohol) [facility] Inpatient Questions Answer Date Recorded Does Anyone Try to Keep You From Having Contact with Others or Doing Things Outside Your Home? no 12/22/2023 Feels Threatened by Someone no 12/11 Feels Unsafe at Home or Work/School no 12/22/2023 Physical Signs of Abuse Present no 12/22/2023 Sex and Gender Information Value Date Recorded Sex Assigned at Not on file Gender Identity Not on file Sexual Orientation Not on file documented as of this encounter Miscellaneous Notes * Telephone Encounter - Mona Jordan - 01/06/2024 11:36 AM EDT I called today and spoke to Jun Merino to let them know of their telehealth appointment with Lottie Alexis on 01/09/2024. I sent them the direct link via text and let them know they can callus back if they need to cancel or reschedule their appointment. documented in this encounter Plan of Treatment Not on file documented as of this encounter Visit Diagnoses Not on filedocumented in this encounter Care Teams Network Support Engineer Relationship Specialty Start Date End Date Saniya Pascual APRN [address] [place] [address] PCP - General Family Medicine 03/29/19 documented as of this encounter
--- OUTSIDE RECORDS SUMMARY | 2024-07-06 22:52 | XMS_ITS | Encounter Summary ---
Author Organization [facility] Address [facility] [place] [address] Care Team Providers Care Cable Television Technician Name Role Phone MeetBecca hansen HOME CARE ATTENDANT Primary Care Provider [phone] Encounter Details Date Type Department Care Team (Late st Contact Info) Description 07/26/2012 Orders Only Obstetrics [place] [phone] Kal Kwan MD Termination of (Primary Dx) Social History Tobacco Use Types Packs/Day Years [...] on file documented as of this encounter Results * US OB transvaginal (08/01/2012 9:30 AM EST) Anatomical Region Laterality Modality Pelvis, Abdomen Ultrasound 08/01/2012 9:30 AM EST Narrative 08/01/2012 9:56 AM EST ?OBSTETRICS REPORT ? (Signed Final 08/01/2012 09:55 am) Patient Info ID: ? [id number] ? : ??[birth year] (31 yrs)(F) Name: ? CASSANDRA ?Visit Date: 08/01/2012 09:07 am ? ABHIJITGER Performed By Performed By: ?Anthony DOBSON, Klaudia Associate: ? Shawn KWON, Socorro Andersen Attending: ? Veto KWON, Dipesh Acevedo Referred By: ? KAL KWAN MD Service(s) Provided UOBTV - Viability - Cervical Length - Transvaginal - ??[id number] Indications TOP, Dating Evaluation (Fetus A) Num Of Fetuses: ?2 Preg. Location: ?Uterus Gest. Sac: ? Visualized Yolk Sac: ?Visualized Pole: ?Visualized Heart Rate: ??116 ?bpm Cardiac Activity: ??Observed, normal rhythm Presentation: ?Variable Placenta: ?Too early to evaluate Membrane Desc: ?Dichorionic - Diamniotic Amniotic Fluid OC FV: ?Too early to evaluate Biometry (Fetus A) CRL: ? 7.6 ??mm ?G. Age: ?? 6w 5d ? RADHA: ?? 03/22/13 Gestational Age (Fetus A) Best: ?6w 5d ?Det. By: ??U/S C R L ?RADHA: ?? 03/22/13 ? Fetus A ? (08/01/12) Evaluation (Fetus B) Num Of Fetuses: ?2 Preg. Location: ?Uterus Gest. Sac: ? Visualized Yolk Sac: ?Visualized Pole: ?Visualized Heart Rate: ??127 ?bpm Cardiac Activity: ??Observed, normal rhythm Placenta: ?too early to evaluate Membrane Desc: ?Dichorionic - Diamniotic Biometry (Fetus B) CRL: ? 7.9 ??mm ?G. Age: ?? 6w 5d ? RADHA: ?? 03/22/13 Gestational Age (Fetus B) Best: ?6w 5d ?Det. By: ??U/S C R L ?RADHA: ?? 03/22/13 ? Fetus A ? (08/01/12) Cervix Uterus Adnexa Cul De Sac: ?Small amount of fluid seen Left Ovary: ?Visualized- corpus luteum Right Ovary: ?? Visualized Impression ??1st Trimester Twin Summary Twin living intrauterine with dichorionic- diamnotic placentation and a gestational age of 6w 5d weeks based on today's ultrasound. The 8 mm. crown rump length corresponds to a gestational age of A: 6w 5d, B: 6w 5d. Normal EHR for A = 116 bpm, for B = 127 bpm. I ??viewed the images and agree with the above interpretation. Thank you for allowing us to participate in the care of CASSANDRA LACEYMABEL. Please do not hesitate to call if you have any questions. ? Dipesh Laws MD Electronically Signed Final Report ?? 08/01/2012 09:55 am Film and interpretation reviewed by the attending Procedure Note Dipesh Laws MD - 08/01/2012 OBSTETRICS REPORT (Signed Final 08/01/2012 09:55 am) Patient Info ID: [id number] : [birth year] (31 yrs)(F) Name: CASSANDRA Visit Date: 08/01/2012 09:07 am WILBER Performed By Performed By: Klaudia Cruz RDMS Associate: Socorro Escobar MD Attending: Dipesh Laws MD Referred By: KAL KWAN MD Service(s) Provided UOBTV - Viability - Cervical Length - Transvaginal - [id number] Indications TOP, Dating Evaluation (Fetus A) Num Of Fetuses: 2 Preg. Location: Uterus Gest. Sac: Visualized Yolk Sac: Visualized Pole: Visualized Heart Rate: 116 bpm Cardiac Activity: Observed, normal rhythm Presentation: Variable Placenta: Too early to evaluate Membrane Desc: Dichorionic - Diamniotic Amniotic Fluid OC FV: Too early to evaluate Biometry (Fetus A) CRL: 7.6 mm G. Age: 6w 5d RADHA: 03/22/13 Gestational Age (Fetus A) Best: 6w 5d Det. By: U/S C R L RADHA: 03/22/13 Fetus A (08/01/12) Evaluation (Fetus B) Num Of Fetuses: 2 Preg. Location: Uterus Gest. Sac: Visualized Yolk Sac: Visualized Pole: Visualized Heart Rate: 127 bpm Cardiac Activity: Observed, normal rhythm Placenta: too early to evaluate Membrane Desc: Dichorionic - Diamniotic Biometry (Fetus B) CRL: 7.9 mm G. Age: 6w 5d RADHA: 03/22/13 Gestational Age (Fetus B) Best: 6w 5d Det. By: U/Meta[employer] Software C R L RADHA: 03/22/13 Fetus A (08/01/12) Cervix Uterus Adnexa Cul De Sac: Small amount of fluid seen Left Ovary: Visualized- corpus luteum Right Ovary: Visualized Impression 1st Trimester Twin Summary Twin living intrauterine with dichorionic- diamnotic placentation and a gestational age of 6w 5d weeks based on today's ultrasound. The 8 mm. crown rump length corresponds to a gestational age of A: 6w 5d, B: 6w 5d. Normal EHR for A = 116 bpm, for B = 127 bpm. I viewed the images and agree with the above interpretation. Thank you for allowing us to participate in the care of CASSANDRA MERINO. Please do not hesitate to call if you have any questions. Dipesh Laws MD Electronically Signed Final Report 08/01/2012 09:55 am Film and interpretation reviewed by the attending Kal Kwan MD IMG US OB ORDERABLE S documented in this encounter Visit Diagnoses Diagnosis Termination of - Primary Termination of (fetus) Termination of Termination of (fetus) documented in this encounter Care Teams Cable Television Technician Relationship Specialty Start Date End Date Becca Dsouza APRN PCP - General 10/02/10 07/31/12 documented as of this encounter
--- OUTSIDE RECORDS SUMMARY | 2024-07-06 22:52 | XMS_ITS | Encounter Summary ---
Author Organization [facility] [place] [address] Care Team Providers Care Auto Brake Mechanic Name Role Phone Becca Dsouza APRN Primary Care Provider [phone] Reason for Visit * Reason Comments Routine Visit Encounter Details Date Type Department Care Team (Latest Contact Info) Description 03/29/2011 11:00 AM EDT Routine Obstetrics [place] [phone] Donis Arenas MD GA: 14w6d Discharge Disposition: Home Social History Tobacco Use Types Packs/Day Years Used Date Smoking Tobacco: Some Days Smokeless Tobacco: Never Comments:recently quit Alcohol Use Standard Drinks/Week Comments No 0 (1 standard drink = 0.6 oz pur e alcohol) Comments Yes Sex and Gender Information Value Date Recorded Sex Assigned at Not on file Gender Identity Not on file Sexual Orientation Not on file documented as of this encounter Last Filed Vital Signs Vital Sign Reading Time Taken Comments Blood Pressure 110/76 03/29/2011 10:56 AM EDT Pulse - - Temperature - - Respiratory Rate - - Oxygen Saturation - - Inhaled Oxygen Concentration - - Weight 92 kg (202 lb 12.8 oz) 03/29/2011 10:56 A M EDT Height - - Body Mass Index 32.24 03/02/2011 2:47 PM EDT documented in this encounter Progress Notes * Donis Arenas MD - 03/29/2011 11:18 AM EDT No bleeding or cramping Will arrange 17 P weekly starting in 1-2 weeks Working hard at quitting smoking * Jeri Viera LNA - 03/29/2011 11:00 AM EDT Skin to Skin Contact and an Early Start to pamphlet given to patient along with the Depression and Nutrition Screens. documented in this encounter Miscellaneous Notes * Miscellaneous - Zhen, Repair Operator - 03/30/2011 10:43 AM EDT documented in this encounter Plan of Treatment Not on file documented as of this encounter Visit Diagnoses Diagnosis state, incidental Supervision of other normal Immunization due Need for prophylactic vaccination and inoculation against unspecified single disease Asthma Unspecified asthma History of premature delivery with history of pre-term labor documented in this encounter Care Teams Auto Brake Mechanic Relationship Specialty Start Date End Date Becca Dsouza APRN PCP - General 10/02/10 07/31/12 documented as of this encounter
--- OUTSIDE RECORDS SUMMARY | 2024-07-06 22:52 | XMS_ITS | Encounter Summary ---
Author Organization [facility] [place] [address] Care Team Providers Care Senior Software Analyst Name Role Phone Becca Dsouza APRN Primary Care Provider [phone] Reason for Visit * Reason Onset Date Comments Questions 07/27/2012 Encounter Details Date Type Department Care Team ([facility] Contact Info) Description 07/27/2012 Telephone Obstetrics [place] [phone] Hailee Reddy, RN Questions Social History Tobacco Use Types Packs/Day Years [...] encounter Miscellaneous Notes * Telephone Encounter - Hailee Reddy, RN - 07/27/2012 10:40 AM EST TELEPHONE NOTE Caller: Patient Reason for call: Patient is calling with questions. She is scheduled for an elective termination ofpregnancy 08/01/12Tuesday, with Dr Kwan. She is calling to see if it is necessary to have her husbands consent to do the procedure. She is having difficulty with her decision and is going to take the weekend to make up her mind as to whether she is going ahead with the termination. She will call back on Tuesday.: Plan/Instructions: Spoke with Ying Davies APRN regarding whether she needs her spouse's consent to have the termination. It is not required to have his consent. The patient was given this information. Patient will call Tuesday with her decision of whether she will proceed with the termination. documented in this encounter Plan of Treatment Not on file documented as of this encounter Visit Diagnoses Not on filedocumented in this encounter Care Teams Senior Software Analyst Relationship Specialty Start Date End Date Becca Dsouza APRN PCP - General 10/02/10 07/31/12 documented as of this encounter
--- OUTSIDE RECORDS SUMMARY | 2024-07-06 22:52 | XMS_ITS | Encounter Summary ---
Author Organization [facility] [place] [address] Care Team Providers Care Seamer Panty Hose Name Role Phone Meet, Becca GUAN Primary Care Provider Encounter Details Date Type Department Care Team (Latest Contact Info) Description 07/01/2011 11:16 AM EST - 07/01/2011 11:59 PM EST Hospital Encounter [place] [address] Unspecified high-risk Social History Tobacco Use Types Packs/Day Years [...] on file documented as of this encounter Medications at Time of Discharge Medication Sig Dispensed Refills Start Date End Date pantoprazole (PROTONIX) 40 mg tablet Take 1 tablet by mouth daily. 90 tablet 3 06/15/2011 docusate sodium (COLACE) 100 mg capsule Take 100 mg by mouth 2 times daily. vitamin 27 & [id number] 60 mg (Iron)-1 mg tablet Take 1 tablet by mouth daily. Hydroxyprogesterone Caproate 250 mg/mL Oil Inject 250 mg into the muscle once a week for 28 doses. Multi dose vial / packaged as one month supply 1 vial 7 03/29/2011 10/05/2011 documented as of this encounter Plan of Treatment Not on file documented as of this encounter Procedures Procedure Name Priority Date/Time Associated Diagnosis Comments HOLTER MONITOR 48 HOUR Routine 07/01/2011 12:41 PM EST Unspecified high-risk documented in this encounter Results * Holter Monitor 48hr (07/01/2011 12:41 PM EST) Anatomical Region Laterality Modality Other Narrative 07/21/2011 12:40 PM EST HOLTER MONITOR Hookup Date: 07/01/2011 ?? During the 45.3 hour ??monitored period, the predominant rhythm was sinus. The average heart rate was 95 beats per minute . The average hourly daytime heart rate was 90-120 beats per minute, the average nocturnal early heart rate was 75-95 beats per minute. ??The lowest heart rate was 51 bpm at 04:23, and the highest heart rate was 164 bpm at 08:47. ?? Very rare atrial ectopy was noted. ??There were 2 atrial premature beats. Nocturnal sinus arrhythmia was noted however a slow atrial tachycardia cannot be excluded.. ?? Very rare ventricular ectopy was noted. ??There were 5 ventricular premature beats.. ?? No pauses were noted. . ?? Palpitations, dizziness, shortness of breath, and fast heart rate ?? reported during probable sinus tachycardia at 120-140 bpm. ??The tachycardia demonstrated gradual increases and decreases in HR without significant change in p wave morphology Procedure Note Brandie Solis MD - 07/21/2011 HOLTER MONITOR Hookup Date: 07/01/2011 ?? During the 45.3 hour monitored period, the predominant rhythm wassinus. The average heart rate was 95 beats per minute . The average hourlydaytime heart rate was 90-120 beats per minute, the average nocturnalearly heart rate was 75-95 beats per minute. The lowest heart rate was 51bpm at 04:23, and the highest heart rate was 164 bpm at 08:47. ?? Very rare atrial ectopy was noted. There were 2 atrial premature beats.Nocturnal sinus arrhythmia was noted however a slow atrial tachycardiacannot be excluded.. ?? Very rare ventricular ectopy was noted. There were 5 ventricularpremature beats.. ?? No pauses were noted. . ?? Palpitations, dizziness, shortness of breath, and fast heart ratereported during probable sinus tachycardia at 120-140 bpm. Thetachycardia demonstrated gradual increases and decreases in HR withoutsignificant change in p wave morphology Deisy Castro MD [facility] documented in this encounter Visit Diagnoses Diagnosis Unspecified high-risk documented in this encounter Care Teams Seamer Panty Hose Relationship Specialty Start Date End Date Becca Dsouza APRN PCP - General 10/02/10 07/31/12 documented as of this encounter
--- OUTSIDE RECORDS SUMMARY | 2024-07-06 22:52 | XMS_ITS | Encounter Summary ---
Author Organization [facility] Address [facility] [place] [address] Care Team Providers Care Manager Business Planning Name Role Phone Becca Dsouza INSTRUCTIONAL ASSISTANT Primary Care Provider [phone] Reason for Visit * Reason Comments Routine Visit Encounter Details Date Type Department Care Team (Latest Contact Info) Description 05/18/2011 9:00 AM EST Routine Obstetrics [place] [address] Edyta Vallejo MD [facility] OBSTETRICS [place] [address] GA: 22w0d Discharge Disposition: Home Social History Tobacco Use [...] Sign Reading Time Taken Comments Blood Pressure 122/72 05/18/2011 9:05 AM EST Pulse - - Temperature - - Respiratory Rate - - Oxygen Saturation - - Inhaled Oxygen Concentration - - Weight 99.5 kg (219 lb 6.4 oz) 05/18/2011 9:05 A M EST Height - - Body Mass Index 34.88 03/02/2011 2:47 PM EDT documented in this encounter Progress Notes * Gill Reynolds LPN - 05/18/2011 9:21 AM EST The OB identification card, Glucose screening directions (if applicable) along with the Guide to [place] was given to the patient. * Edyta Vallejo MD - 05/18/2011 9:17 AM EST Good movement. No contractions/ leaking fluid / bleeding / pain. No headache, vision changes, RUQ pain. Reviewed weight gain. Receiving progesterone shots in [facility]: women's wellness. RTC in one month; GTT at that visit. Quit smoking. documented in this encounter Plan of Treatment Not on file documented as of this encounter Results * (ABNORMAL) CBC (with Diff) (07/01/2011 11:00 AM EST) White Blood Cell 13.8(H) 4.0 - 10.0 x10(3)/mc L CERNER MILLENNIUM Red Blood Cell 4.19 3.93 - 5.22 x10(6)/mc L CERNER MILLENNIUM Hemoglobin 12.3 11.2 - 15.7 gm/dL CERNER MILLENNIUM Hematocrit 37.3 34.0 - 45.0 % CERNER MILLENNIUM Mean Cell Volume 89.0 79.0 - 94.0 fL CERNER MILLENNIUM Mean Cell Hemoglobin 29.4 26.6 - 32.2 pg CERNER MILLENNIUM Mean Cell Hemoglobin Concentration 33.0 32.0 - 36.5 gm/dL CERNER MILLENNIUM Platelet 288 145 - 370 x10(3)/mc L CERNER MILLENNIUM RDW Standard Deviation 42.6 35.0 - 46.0 fL CERNER MILLENNIUM RDW coefficient of variation 13.2 10.9 - 14.4 % CERNER MILLENNIUM Mean Platelet Volume 10.9 9.0 - 12.0 fL CERNER MILLENNIUM Blood specimen (specimen) 07/01/2011 11:00 AM EST 07/01/2011 11:04 AM EST E Socorro BETANCOURT Performing Organization Address City/State/[facility] Co de Phone Number [facility] documented in this encounter Visit Diagnoses Diagnosis High-risk supervision- Primary Unspecified high-risk History of delivery, currently with history of pre-term labor documented in this encounter Care Teams Manager Business Planning Relationship Specialty Start Date End Date Becca Dsouza APRN PCP - General 10/02/10 07/31/12 documented as of this encounter
--- OUTSIDE RECORDS SUMMARY | 2024-07-06 22:52 | XMS_ITS | Clinical Summary ---
Author Organization [facility] Address [facility] [place] [address] Care Team Providers Care Economic Manager Name Role Phone Saniya Pascual APRN Primary Care Provider [phone] Allergies Active Allergy Reactions Criticality Noted Date Comments Red Dye 10/02/2010 Medications Medication Sig Dispensed Refills Start Date End Date Status vitamin 27 & qejarjk-zfjc-KS 60 mg (Iron)-1 mg tablet Take 1 tablet by mouth daily. Active docusate sodium (COLACE) 100 mg capsule Take 100 mg by mouth 2 times daily. Active pantoprazole (PROTONIX) 40 mg tablet Take 1 tablet by mouth daily. 90 tablet 3 06/15/2011 Active Additional Information Patient not taking.Reported on 11/13/2015 FLUoxetine (PROZAC) 10 mg Capsule Take 20 mg by mouth daily. Active lamoTRIgine (LAMICTAL) 25 mg Tablet Take 50 mg by mouth daily. Active omeprazole (PRILOSEC) 20 mg Capsule, Delayed Release(E.C.) Take 20 mg by mouth daily. Active promethazine (PHENERGAN) [address] 1 suppository rectally every 6 hours as needed for Nausea (for headache,nausea and sleep (sedating) to help break her migraine.). 15 suppository 02/04/2016 Active Active Problems Problem Noted Date Diagnosed Date History of premature delivery 03/02/2011 Overview (03/02/2011): Delivered at 27 weeks. Had 17OHP in subsequent and delivered at 39 weeks. High-risk supervision 03/02/2011 Overview (03/12/2012): Team MFM Delivery plan GBS date & Result Cystic fibrosis choice Aneuploidy choice Others screening tests nutrition Childbirth education preferences Contraception plan Ped/circ plans Immunizations: Influenza vaccine Accepted Declined Contraindicated Other vaccines Indicated Not indicated Given during Tdap Pneumovax MMR Varicella Other Dx replacement utility run on deactivated IMO Dx [id number] Former smoker 03/02/2011 Overview (03/02/2011): Quit February 2011, prior 1ppd Anxiety 03/02/2011 Asthma Overview (10/02/2010): Onset age 5 No ICU, ED or intubation Triggered now with exercise, smoking and URI Smoking quit 06/13/10 Currently asymptomatic Resolved Problems Problem Noted Date Diagnosed Date Resolved Date with poor obstetric history 10/02/2010 03/02/2011 Overview (10/02/2010): Had 27 week spontaneous delivery. Used 17P in next and delivered at term Anxiety 10/02/2010 03/02/2011 Overview (10/02/2010): Currently off medication Immunizations Name Administration Dates Next Due Influenza Trivalent, Preservative Free 1 Influenza Vaccine, Whole 05/30/2006 Family History * Patient is adopted Medical History Relation Comments Cancer Other cousin and aunt Relation Status Comments Other Social History Tobacco Use Types Packs/Day Years Used Date Smoking Tobacco: Every Day Cigarettes Smokeless Tobacco: Former Quit: 04/22/2011 Tobacco Cessation:Ready to Q uit: Yes Comments:recently quit Alcohol Use Standard Drinks/Week Comments No 0 (1 standard drink = 0.6 oz pur e alcohol) DH IPV Inpatient Questions Answer Date Recorded Does Anyone [...] on file Sexual Orientation Not on file Last Filed Vital Signs Vital Sign Reading Time Taken Comments Blood Pressure 142/78 12/22/2023 9:00 PM EDT Pulse 51 12/22/2023 9:00 PM EDT Temperature 37.1 ??C (98.8 ??F) 12/22/2023 2:37 PM ED T Respiratory Rate 15 12/22/2023 9:00 PM EDT Oxygen Saturation 97% 12/22/2023 9:00 PM EDT Inhaled Oxygen Concentration - - Weight 68 kg (150 lb) 11/13/2015 12:27 PM EDT Height 170.2 cm (5' 7) 11/13/2015 12:27 PM EDT Body Mass Index 23.49 11/13/2015 12:27 PM EDT Plan of Treatment Health Maintenance Due Date Last Done Comments HIV screen 10/21/1999 Hepatitis C Screening 10/21/1999 Lipid Screening 10/21/1999 Hepatitis B vaccine (0-59 yrs) (1) 2000 Pneumococcal Vaccine: At-Ris k 5-49yrs (1 of 2 - PCV) 2000 Tetanus/Diphtheria/Pertussis Vaccines (1 - Tdap) 2000 PAP Smear 03/02/2014 03/02/2011 Breast Cancer Share Decision Needed 2021 Breast Cancer screening 2021 Covid-19 Vaccine (1 - season) 2024 Influenza (Flu) vaccine (1 o f 1 - Influenza standard series) 02/12/2024 03/29/2011, 05/30/2006 Procedures Procedure Name Priority Date/Time Associated Diagnosis Comments NEEDLE GRADER CYTOLOGY FINAL REPORT Routine 03/02/2011 5:40 PM EDT from Last 3 Months or Most Recently Relevant to Health Maintenance Results * NEEDLE GRADER CYTOLOGY FINAL REPORT (03/02/2011 5:40 PM EDT) Bowling Pin Refinisher Cytology Final Report ? [facility] ? Provider: ?? PSCHIRRER, E ?Pt. Name: ?? CASSANDRA MERINO ?JAKE ? Acc #: ?[id number] ?Pt. ? Col Date: ?? 03/02/2011 ? /Sex: ?1980,(30 years),Female ? Rec Date: ?? 03/02/2011 ? LOC: ?5L ? CYTOPATHOLOGY: ??NEEDLE GRADER ? ---Adequacy--- ? Specimen submitted is satisfactory. ? Endocervical component present. ? ---Cytopathologic Diagnosis--- ? NORMAL ? Negative for Intraepithelial Lesion or Malignancy (NILM). ? 03/05/11 ?? Screened by: ??FMQ ? 03/05/11 ?? Verified by: ??Eddie ADAMS(ASCP), Yrn Combs - Ad Operations Coordinator ? ---Clinical Information--- ? HPV Option: ? Reflex HPV ? Preparation: ?Liquid Based Pap ? Specimen Source: ?Cervical Endocervical LBP ? LMP: ?12/11/2010 ? Hormones?: ?No ? Hysterectomy?: ?No ?: ?No ?: ?Yes ? I.U.D.?: ?No ? Pelvic Radiation: ? No ? Prior NEEDLE GRADER Therapy?: ? No ? Hist Abnl Pap/Biopsy?: ??No ? Hist of HPV Vaccine?: ?? No ? Hist of Smoking?: ? Yes ? Hist of DANAY exposure?: ??No ? Clinical Data, Significant Therapy and Clinical Impression: ?_ ? Note: ? The Pap test is a screening test for cervical cancer with an inherent ? false-negative rate dependent upon several variables. ??For further ? information please contact the [facility]. ? Reference: ??Ivette CS. ??Machinist Bench of Pap Smear Results. ??In: ? Cole BS, Malachi HH, ed. ??The Pap Smear. ??[place]: ??[place]onzales, 2002: ? 71-77. DAMION BARRIOS 03/02/2011 5:40 PM EDT E Jake Vallejo MD PATHOLOGY/CYTOLOG Y ORDERABLES DAMION BARRIOS from Last 3 Months or Most Recently Relevant to Health Maintenance Care Teams Economic Manager Relationship Specialty Start Date End Date Saniya Pascual APRN [address] [place] [address] PCP - General Family Medicine 03/29/19
--- OUTSIDE RECORDS SUMMARY | 2024-07-06 22:52 | XMS_ITS | Encounter Summary ---
[place] [address] Care Team Providers Care Office Administrative Assistant Name Role Phone None Primary Care Provider Unavailabl e Reason for Visit * Reason Onset Date Comments Advice Only 08/07/2012 Encounter Details Date Type Department Care Team (Late st Contact Info) Description 08/07/2012 Telephone Obstetrics [place] [phone] Mackenzie Velazquez RN [address] [place] [id number] Advice Only Social History Tobacco Use Types Packs/Day Years [...] encounter Miscellaneous Notes * Telephone Encounter - Mackenzie Velazquez RN - 08/07/2012 4:15 PM EST TELEPHONE NOTE Caller: Mackenzie Velazquez RN Reason for call: Called to discuss the MNS appointment tomrorow Assessment: Patient has changed her mind and is asking to cancel the appointment. Plan/Instructions: Appointment cancelled. documented in this encounter Plan of Treatment Not on file documented as of this encounter Visit Diagnoses Not on filedocumented in this encounter Care Teams Office Administrative Assistant Relationship Specialty Start Date End Date None None PCP - General 08/01/12 11/04/15 documented as of this encounter
--- OUTSIDE RECORDS SUMMARY | 2024-07-06 22:52 | XMS_ITS | Encounter Summary ---
Author Organization [facility] [place] [address] Care Team Providers Care Body Designer Name Role Phone Becca Dsouza APRN Primary Care Provider [phone] Encounter Details Date Type Department Care Team (Late st Contact Info) Description 03/29/2011 Orders Only Obstetrics [place] [address] Bert Childers, RN Social History Tobacco Use [...] on filedocumented in this encounter Care Teams Body Designer Relationship Specialty Start Date End Date Becca Dsouza APRN PCP - General 10/02/10 07/31/12 documented as of this encounter
--- OUTSIDE RECORDS SUMMARY | 2024-07-06 22:52 | XMS_ITS | Encounter Summary ---
Author Organization [facility] [place] [address] Care Team Providers Care Automotive Salesperson Name Role Phone Becca Dsouza APRN Primary Care Provider [phone] Encounter Details Date Type Department Care Team (Late st Contact Info) Description 02/05/2011 Orders Only Obstetrics [place] [phone] Bert Childers RN with uncertain dates (Primary Dx) Social History Tobacco Use Types Packs/Day Years Used Date Smoking Tobacco: Former Alcohol Use Standard Drinks/Week Comments No 0 (1 standard drink = 0.6 oz pur e alcohol) Comments Yes Sex and Gender Information Value Date Recorded Sex Assigned at Not on file Gender Identity Not on file Sexual Orientation Not on file documented as of this encounter Plan of Treatment Not on file documented as of this encounter Visit Diagnoses Diagnosis with uncertain dates- Primary state, incidental documented in this encounter Care Teams Automotive Salesperson Relationship Specialty Start Date End Date Becca Dsouza APRN PCP - General 10/02/10 07/31/12 documented as of this encounter
--- OUTSIDE RECORDS SUMMARY | 2024-07-06 22:52 | XMS_ITS | Encounter Summary ---
Author Organization [facility] Address [facility] [place] [address] Care Team Providers Care Communications Tech Name Role Phone Becca Dsouza REVENUE TAX SPECIALIST Primary Care Provider [phone] Reason for Visit * Reason Comments Initial Visit Encounter Details Date Type Department Care Team (Latest Contact Info) Description 03/02/2011 3:15 PM EDT Initial Obstetrics [place] [address] Edyta Vallejo MD [facility] OBSTETRICS [place] [address] Discharge Disposition: Home Social History Tobacco Use [...] Sign Reading Time Taken Comments Blood Pressure 104/60 03/02/2011 2:47 PM EDT Pulse - - Temperature - - Respiratory Rate - - Oxygen Saturation - - Inhaled Oxygen Concentration - - Weight 90.3 kg (199 lb) 03/02/2011 2:47 PM EDT Height 168.9 cm (5' 6.5) 03/02/2011 2:47 PM EDT Body Mass Index 31.64 03/02/2011 2:47 PM EDT documented in this encounter Progress Notes * Mallory Worley - 03/02/2011 3:48 PM EDT This is a 30 year old who presents for initial OB visit. She is excited about this and she has terminated 2 pregnancies in the past. She had a prior and 27 weeks and used 17 OHP in her last with subsequent full term forceps assisted vaginal delivery. The patient presents for initial care visit. Obstetric/gynecologic, medical, surgical, family and social history discussed. The group practice, resident and medical student involvement, and plan of care were reviewed with the patient, and all questions were answered. PE: Filed Vitals: 03/02/11 1447 BP: 104/60 General - well appearing female, NAD Neck - no thyroid nodules or lymphadenopathy Cardiovascular:regular rate and rhythm, normal S1, S2 no murmurs, gallops, rubs pulses 2+ radial and dorsalis pedis Respiratory:clear to auscultation bilaterally, no wheezes, rhonchi, rales Abdomen - soft, non-tender, non-distended, normoactive bowel sounds Extremities - warm and well perfused, no edema Pelvic exam External Genitalia - normal appearing labia, no lesions, normal female hair pattern Vagina - normal appearing rugae, no lesions, no prolapse Cervix - Mid position, no discharge from the external os, pap collected with cytobrush Uterus - mobile, non tender 12 week size Adenexa - mobile, non-tender, no masses Impression: 30 year old multip with history of pre term who presents for initial ob appt. Plan Pap today labs ordered 1st trimester screening ordered Encouraged continued smoking cessation Will plan for progesterone in this Continued surveillance of anxiety and asthma TUMS for GERD. D/W Dr. Vallejo. documented in this encounter Miscellaneous Notes * Miscellaneous - Zhen, Inspector And Tester - 03/24/2011 3:09 PM EDT documented in this encounter Plan of Treatment Not on file documented as of this encounter Procedures Procedure Name Priority Date/Time Associated Diagnosis Comments ICE CUTTER CYTOLOGY FINAL REPORT Routine 03/02/2011 5:40 PM EDT GC/CHLAM Routine 03/02/2011 4:36 PM EDT URINE CULTURE Routine 03/02/2011 4:36 PM EDT with poor obstetric history DIFFERENTIAL, AUTOMATED Routine 03/02/2011 4:33 PM EDT SYPHILIS ANTIBODY SCREEN WITH REFLEX Routine 03/02/2011 4:33 PM EDT ABO/RH TYPING Routine 03/02/2011 4:33 PM EDT RUBELLA ANTIBODY, IGG Routine 03/02/2011 4:33 PM EDT HEPATITIS B SURFACE ANTIGEN Routine 03/02/2011 4:33 PM EDT CBC (WITH DIFF) Routine 03/02/2011 4:33 PM EDT ANTIBODY SCREEN Routine 03/02/2011 4:33 PM EDT GC/CHLAMYDIA Routine 03/02/2011 4:25 PM EDT with poor obstetric history SCREEN Routine 03/02/2011 4:15 PM EDT with poor obstetric history documented in this encounter Results * US OB nuchal translucency (03/10/2011 1:26 PM EDT) Anatomical Region Laterality Modality Pelvis, Abdomen Ultrasound 03/10/2011 1:26 PM EDT Narrative 03/10/2011 1:31 PM EDT ?OBSTETRICS REPORT ? (Signed Final 03/10/2011 01:31 pm) Patient Info ID: ? [id number] ? : ??[birth year] (30 yrs)(F) Name: ? CASSANDRA ?Visit Date: 03/10/2011 01:23 pm ? [facility] Performed By Performed By: ?? Salome Fernandes RDMS Attending: ?Veto KWON, Dipesh Acevedo Referred By: ?JUS JOSEPH MD Accession#: ? [id number] Service(s) Provided UNT - Nuchal Translucency - First Trimester ? 49624 Screening - [id number] Indications First ??Trimester Screening - Check Nuchal Translucency Evaluation Num Of Fetuses: ?1 Gest. Sac: ? Visualized Heart Rate: ??152 ?bpm Cardiac Activity: ??Observed, normal rhythm Presentation: ?Variable Placenta: ?Too early to evaluate Amniotic Fluid OC FV: ?Too early to evaluate -------- Biometry -------- Gestational Age LMP: ? 12w 5d ?Date: ??12/11/10 ? RADHA: ?? 09/17/11 Best: ?12w 5d ?? Det. By: ??LMP ??(12/11/10) ?RADHA: ?? 09/17/11 1st Trimester Genetic Sonogram Screening CRL: ?50.4 ??mm ?G. Age: ?? 11w 5d ? RADHA: ?? 09/24/11 Nuc Trans: ? 1.3 ??mm Cervix Uterus Adnexa Left Ovary: ?Visualized Right Ovary: ?? Visualized Impression 1st Trimester NT Summary Single living intrauterine with a gestational age of 12w 5d based on LMP. The crown rump length corresponds to a gestational age of 11w 5d. Nuchal translucency examination was performed. The measurement is 1.3 mm. I ??viewed the images and agree with the above interpretation. Thank you for allowing us to participate in the care of CASSANDRA MERINO. Please do not hesitate to call if you have any questions. ?Dipesh Laws MD Electronically Signed Final Report ?? 03/10/2011 01:31 pm Procedure Note Dipesh Laws MD - 03/10/2011 OBSTETRICS REPORT (Signed Final 03/10/2011 01:31 pm) Patient Info ID: [id number] : [birth year] (30 yrs)(F) Name: CASSANDRA Visit Date: 03/10/2011 01:23 pm WILBER Performed By Performed By: Salome Fernandes RDME Attending: Dipesh Laws MD Referred By: JUS JOSEPH MD Service(s) Provided UNT - Nuchal Translucency - First Trimester 81852 Screening - [id number] Indications First Trimester Screening - Check Nuchal Translucency Evaluation Num Of Fetuses: 1 Gest. Sac: Visualized Heart Rate: 152 bpm Cardiac Activity: Observed, normal rhythm Presentation: Variable Placenta: Too early to evaluate Amniotic Fluid OC FV: Too early to evaluate -------- Biometry -------- Gestational Age LMP: 12w 5d Date: 12/11/10 RADHA: 09/17/11 Best: 12w 5d Det. By: LMP (12/11/10) RADHA: 09/17/11 1st Trimester Genetic Sonogram Screening CRL: 50.4 mm G. Age: 11w 5d RADHA: 09/24/11 Nuc Trans: 1.3 mm Cervix Uterus Adnexa Left Ovary: Visualized Right Ovary: Visualized Impression 1st Trimester NT Summary Single living intrauterine with a gestational age of 12w 5d based on LMP. The crown rump length corresponds to a gestational age of 11w 5d. Nuchal translucency examination was performed. The measurement is 1.3 mm. I viewed the images and agree with the above interpretation. Thank you for allowing us to participate in the care of JAMIL-STEPH MERINO. Please do not hesitate to call if you have any questions. Dipesh Laws MD Electronically Signed Final Report 03/10/2011 01:31 pm E Jake Vallejo MD IMG US OB ORDERAB LES * ICE CUTTER CYTOLOGY FINAL REPORT (03/02/2011 5:40 PM EDT) Decision Science Analyst Cytology Final Report ? [facility] ? Provider: ?? Edyta VALLEJO ?Pt. Name: ?? JAMIL MERINOMariaaSTEPH ?JAKE ? Acc #: ?[id number] ?Pt. ? Col Date: ?? 03/02/2011 ? /Sex: ?1980,(30 years),Female ? Rec Date: ?? 03/02/2011 ? LOC: ?5L ? CYTOPATHOLOGY: ??ICE CUTTER ? ---Adequacy--- ? Specimen submitted is satisfactory. ? Endocervical component present. ? ---Cytopathologic Diagnosis--- ? NORMAL ? Negative for Intraepithelial Lesion or Malignancy (NILM). ? 03/05/11 ?? Screened by: ??FMQ ? 03/05/11 ?? Verified by: ??Eddie ADAMS(ASCP), Yrn Combs - Solar Photovoltaic Installer ? ---Clinical Information--- ? HPV Option: ? Reflex HPV ? Preparation: ?Liquid Based Pap ? Specimen Source: ?Cervical Endocervical LBP ? LMP: ?12/11/2010 ? Hormones?: ?No ? Hysterectomy?: ?No ?: ?No ?: ?Yes ? I.U.D.?: ?No ? Pelvic Radiation: ? No ? Prior ICE CUTTER Therapy?: ? No ? Hist Abnl Pap/Biopsy?: [...] ??For further ? information please contact the [facility] Laboratory. ? Reference: ??Ivette GREEN. ??Recreation Programmer of Pap Smear Results. ??In: ? Cole BS, Malachi HH, ed. ??The Pap Smear. ??[place]: ??Gonzales, 2002: ? 71-77. [facility] 03/02/2011 5:40 PM EDT E Jake Vallejo MD PATHOLOGY/CYTOLOG Y ORDERABLES Performing Organization Address [facility] de Phone Number [facility] * REFLEX LAB-GC/CHLAM (03/02/2011 4:36 PM EDT) GC Gene Amp Negative Negative [facility] Comment: The only FDA approved specimen types for this assay are cervix, vagina, urethra and urine. ??The sensitivity and specificity of the assay for other specimen types has not been determined. GC Source Urine [facility] Chlamydia Gene Amp Negative Negative [facility] Comment: The only FDA approved specimen types for this assay are cervix, vagina, urethra and urine. ??The sensitivity and specificity of the assay for other specimen types has not been determined. Chlm Source Urine [facility] Specimen of unknown material (specimen) 03/02/2011 4:36 PM EDT 03/02/2011 5:31 PM EDT E Jake Vallejo MD MICROBIOLOGY - GE NERAL ORDERABLES Performing Organization Address [facility] de Phone Number [facility] * Urine culture Clean Catch Urine (03/02/2011 4:36 PM EDT) Urine Culture ? Patient Name: CASSANDRA MERINO ?Ordered By: Edyta VALLEJO ? MR#: [id number] ?LOC: ??5L ? /Sex: ??1980 (30 years), ? Female ? PROCEDURE: Urine Culture ?SOURCE: U CC ? COLLECTED: 03/02/2011 16:36 ? STARTED: 03/02/2011 17:32 ? FINAL REPORT ? Final Report ? Verified:02/12 15:28 ? 10,000-49,000 cfu/ml mixed Gram Positive organisms ? __ [facility] Urine specimen obtained by clean catch procedure (specimen) 03/02/2011 4:36 PM EDT 03/02/2011 5:32 PM EDT E aJke Vallejo MD MICROBIOLOGY - NERAL ORDERABLES [facility] * (ABNORMAL) REFLEX LAB-A-DIFF (03/02/2011 4:33 PM EDT) Neutrophil % 64.3 34.0 - 71.0 % [facility] Neutrophil Absolute 7.29(H) 1.50 - 6.30 x10(3)/mc L [facility] Lymph % 24.2 19.0 - 53.0 % [facility] Lymphocytes Abs 2.7 1.0 - 3.6 x10(3)/mc L [facility] Monocyte % 8.3 4.0 - 13.0 % [facility] Monocyte Abs 0.9 0.2 - 1.0 x10(3)/mc L [facility] Eos % 2.7 0.0 - 7.0 % [facility] Eosinophils Abs 0.3 0.0 - 0.5 x10(3)/mc L [facility] Basophil % 0.4 0.0 - 2.0 % [facility] Baso Absolute 0.0 0.0 - 0.2 x10(3)/mc L [facility] Immature Gran % 0.10 0.00 - 0.66 % [facility] Comment: Immature granulocytes(IG's)percentage and absolute count will include metamyelocytes, myelocytes, and promyelocytes. Blood smears from CBCs yielding IG's will be scanned manually for concordance. If this scan disagrees with the automated IG or if promyelocytes are noted, a manual differential will be performed. Immature Gran Absolute 0.01 0.00 - 0.05 x10(3)/mc L [facility] Blood specimen (specimen) 03/02/2011 4:33 PM EDT 03/02/2011 4:41 PM EDT E Jake Vallejo MD HEMATOLOGY ORDERA BLES Performing Organization Address [facility] Co de Phone Number [facility] * REFLEX LAB-ANTIBODY SCREEN (03/02/2011 4:33 PM EDT) Pathologist [facility] Ab Screen Interp Negative [facility] Expires at [id number] on: [id number] [facility] Blood specimen (specimen) 03/02/2011 4:33 PM EDT 03/02/2011 4:41 PM EDT E Jake Vallejo MD BLOOD BANK LAB OR DERABLES Performing Organization Address [facility] Phone Number [facility] * REFLEX LAB-ABO/RH TYPING (03/02/2011 4:33 PM EDT) Pathologist [facility] ABORH Type O Pos [facility] Blood specimen (specimen) 03/02/2011 4:33 PM EDT 03/02/2011 4:41 PM EDT E Jake Vallejo MD BLOOD BANK LAB OR DERABLES Performing Organization Address [facility] Co de Phone Number [facility] * RUBELLA ANTIBODY, IGG (03/02/2011 4:33 PM EDT) Pathologist [facility] Rubella Antibody IgG Positive Positive [facility] Comment: Please note: ??A positive result for this assay indicates that antibody levels are >or= 10.0 IU/mL and is considered to be an indicator of positive immune status. Blood specimen (specimen) 03/02/2011 4:33 PM EDT 03/02/2011 4:41 PM EDT E Jake Vallejo MD CHEMISTRY ORDERAB LES Performing Organization Address [facility] Co de Phone Number [facility] * HEPATITIS B SURFACE ANTIGEN (03/02/2011 4:33 PM EDT) Hepatitis B Surface Antigen Negative Negative [facility] Blood specimen (specimen) 03/02/2011 4:33 PM EDT 03/02/2011 4:41 PM EDT E Jake Vallejo MD CHEMISTRY ORDERAB LES Performing Organization Address [facility] Co de Phone Number [facility] * SYPHILIS ANTIBODY, IGG (03/02/2011 4:33 PM EDT) Pathologist [facility] Syphilis IgG Negative Negative [facility] Blood specimen (specimen) 03/02/2011 4:33 PM EDT 03/03/2011 9:39 AM EDT E Jake Vallejo MD CHEMISTRY ORDERAB LES Performing Organization Address [facility] Co de Phone Number [facility] * (ABNORMAL) CBC (WITH DIFF) (03/02/2011 4:33 PM EDT) Pathologist [facility] White Blood Cell 11.3(H) 4.0 - 10.0 x10(3)/mc L [facility] Red Blood Cell 4.38 3.93 - 5.22 x10(6)/mc L [facility] Hemoglobin 13.4 11.2 - 15.7 gm/dL [facility] Hematocrit 38.5 34.0 - 45.0 % [facility] Mean Cell Volume 87.9 79.0 - 94.0 fL [facility] Mean Cell Hemoglobin 30.6 26.6 - 32.2 pg [facility] Mean Cell Hemoglobin Concentration 34.8 32.0 - 36.5 gm/dL [facility] Platelet 266 145 - 370 x10(3)/mc L [facility] RDW Standard Deviation 45.1 35.0 - 46.0 fL [facility] RDW coefficient of variation 14.0 10.9 - 14.4 % [facility] Mean Platelet Volume 10.7 9.0 - 12.0 fL [facility] Blood specimen (specimen) 03/02/2011 4:33 PM EDT 03/02/2011 4:41 PM EDT E Jake Vallejo MD HEMATOLOGY ORDERA BLES [facility] documented in this encounter Visit Diagnoses Diagnosis with poor obstetric history with other poor obstetric history Anxiety Anxiety state, unspecified History of premature delivery with history of pre-term labor state, incidental Former smoker Personal history of tobacco use, presenting hazards to health with poor obstetric history with other poor obstetric history documented in this encounter Care Teams Communications Tech Relationship Specialty Start Date End Date Becca Dsouza APRN PCP - General 10/02/10 07/31/12 documented as of this encounter
--- OUTSIDE RECORDS SUMMARY | 2024-07-06 22:52 | XMS_ITS | Encounter Summary ---
Author Organization [facility] Address [facility] [place] [address] Care Team Providers Care Supervisor Lace Tearing Name Role Phone AnkurFabiola petershrdaniel Freeman FREIDA Primary Care Provider [phone] Encounter Details Date Type Department Care Team (Late st Contact Info) Description 01/09/2024 Notes [place] [address] Lottie Alexis PA [facility] [place] [address] Social History Tobacco Use Types Packs/Day Years Used Date Smoking Tobacco: Every Day Cigarettes Smokeless Tobacco: Former Quit: 04/22/2011 Comments:recently quit Alcohol Use Standard Drinks/Week Comments No 0 (1 standard drink = 0.6 oz pur e alcohol) IPV Inpatient Questions Answer Date Recorded Does [...] on file documented as of this encounter Progress Notes * Lottie Alexis PA - 01/09/2024 9:34 AM EDT Patient did not log on for teleVeraLighttlh Attempting to reach patient - no answer documented in this encounter Plan of Treatment Not on file documented as of this encounter Visit Diagnoses Not on filedocumented in this encounter Care Teams Supervisor Lace Tearing Relationship Specialty Start Date End Date Saniya Pascual APRN [phone] PCP - General Family Medicine 03/29/19 documented as of this encounter
--- OUTSIDE RECORDS SUMMARY | 2024-07-06 22:52 | XMS_ITS | Encounter Summary ---
Author Organization [facility] Address [facility] [place] [address] Care Team Providers Care High Man Name Role Phone Becca Dsouza SNUFF CONTAINER INSPECTOR Primary Care Provider [phone] Encounter Details Date Type Department Care Team (Latest Contact Info) Description 07/01/2011 10:50 AM EST - 07/01/2011 11:59 PM [facility] Hospital [place] [phone] Edyta Vallejo MD [facility] OBSTETRICS [place] [address] High-risk supervision; History of delivery, currently Discharge Disposition: Home Social History Tobacco Use [...] mouth 2 times daily. vitamin 27 & [id number] 60 mg (Iron)-1 mg tablet Take 1 [...] Procedure Name Priority Date/Time Associated Diagnosis Comments DIFFERENTIAL, AUTOMATED Routine 07/01/2011 11:00 AM EST CBC (WITH DIFF) Routine 07/01/2011 11:00 AM EST High-risk supervision History of delivery, currently documented in this encounter Results * (ABNORMAL) DIFFERENTIAL, AUTOMATED (07/01/2011 11:00 AM EST) Neutrophil % 72.8(H) 34.0 - 71.0 % [facility] Neutrophil Absolute 10.06(H) 1.50 - 6.30 x10(3)/mc L [facility] Lymph % 17.1(L) 19.0 - 53.0 % [facility] Lymphocytes Abs 2.4 1.0 - 3.6 x10(3)/mc L [facility] Monocyte % 6.5 4.0 - 13.0 % [facility] Monocyte Abs 0.9 0.2 - 1.0 x10(3)/mc L [facility] Eos % 3.0 0.0 - 7.0 % [facility] Eosinophils Abs 0.4 0.0 - 0.5 x10(3)/mc L [facility] Basophil % 0.2 0.0 - 2.0 % [facility] Baso Absolute 0.0 0.0 - 0.2 x10(3)/mc L [facility] Immature Gran % 0.40 0.00 - 0.66 % [facility] Comment: Immature granulocytes(IG's)percentage and absolute count will include metamyelocytes, myelocytes, and promyelocytes. Blood smears from CBCs yielding IG's will be scanned manually for concordance. If this scan disagrees with the automated IG or if promyelocytes are noted, a manual differential will be performed. Immature Gran Absolute 0.05 0.00 - 0.05 x10(3)/mc L [facility] Blood specimen (specimen) 07/01/2011 11:00 AM EST 07/01/2011 11:04 AM EST E Socorro Vallejo MD HEMATOLOGY ORDERA BLEGary DAMION GILLISENNTAMI * (ABNORMAL) CBC (with Diff) (07/01/2011 11:00 [...] EST 07/01/2011 11:04 AM EST E Socorro Vallejo MD HEMATOLOGY ORDERA BLEGary DAMION BARRIOS documented in this encounter Visit Diagnoses Diagnosis High-risk supervision Unspecified high-risk History of delivery, currently with history of pre-term labor documented in this encounter Care Teams High Man Relationship Specialty Start Date End Date Becca Dsouza APRN PCP - General 10/02/10 07/31/12 documented as of this encounter
--- OUTSIDE RECORDS SUMMARY | 2024-07-06 22:52 | XMS_ITS | Encounter Summary ---
Author Organization [facility] [place] [address] Care Team Providers Care Developmental Services Worker Name Role Phone Becca Dsouza APRN Primary Care Provider [phone] Encounter Details Date Type Department Care Team (Late st Contact Info) Description 02/19/2011 Abstract Obstetrics [place] [id number] Della Aleman, RN Social History Tobacco Use Types Packs/Day [...] on filedocumented in this encounter Care Teams Developmental Services Worker Relationship Specialty Start Date End Date Becca Dsouza APRN PCP - General 10/02/10 07/31/12 documented as of this encounter
--- OUTSIDE RECORDS SUMMARY | 2024-07-06 22:52 | XMS_ITS | Encounter Summary ---
Author Organization [facility] Address [facility] [place] [address] Care Team Providers Care Scientist Name Role Phone Becca Dsouza APRN Primary Care Provider [phone] Reason for Visit * Reason Comments Routine Visit Encounter Details Date Type Department Care Team (Late st Contact Info) Description 07/01/2011 10:00 AM EST Routine Obstetrics [place] [address] Deisy Castro MD [facility] [address] OBSTET[place] [address] Discharge Disposition: Home Social History Tobacco Use [...] Sign Reading Time Taken Comments Blood Pressure 134/78 07/01/2011 9:49 AM EST Pulse - - Temperature - - Respiratory Rate - - Oxygen Saturation - - Inhaled Oxygen Concentration - - Weight 106.1 kg (233 lb 12.8 oz) 07/01/2011 9:49 AM EST Height - - Body Mass Index 37.17 03/02/2011 2:47 PM EDT documented in this encounter Progress Notes * Deisy Castro MD - 07/01/2011 12:38 PM EST FM felt. No LOF, no bleeding or no. On [address] [facility]. C/o persistent palpitations occurring daily. No CP. Some SOB and dizziness when occurs but this resolves when palpitations subside. Drinks 1 cup of caffeine QD, advised to stop this given symptoms. [facility] referral in 2 weeks. Will check electrolytes, TSH and holter monitor. C/o intermittent thigh pain acute onset in early am hours and resolution. No persistent pain. PE: no calf or thigh tenderness or edema. No Palpable cords. Negative Homans'. Sounds like muscle cramping. F/u 2 weeks. documented in this encounter Plan of Treatment Not on file documented as of this encounter Procedures Procedure Name Priority Date/Time Associated Diagnosis Comments TSH Routine 07/01/2011 11:00 AM EST Unspecified high-risk ELECTROLYTES PANEL Routine 07/01/2011 11 :00 AM EST Unspecified high-risk documented in this encounter [...] morphology Deisy Castro MD [facility] * TSH (07/01/2011 11:00 AM EST) Thyroid Stimulating Hormone 3.54 0.27 - 4.20 mcIU/mL CERNER MILLENNIUM Blood specimen (specimen) 07/01/2011 11:00 AM EST 07/01/2011 11:04 AM EST Deisy Castro MD CHEMISTRY ORDERABL ES [facility] * Electrolytes panel (07/01/2011 11:00 AM EST) Sodium 136 135 - 145 mmol/L CERNER MILLENNIUM Potassium 4.1 3.5 - 5.0 mmol/L CERNER MILLENNIUM Comment: Please note: ??Patients with WBC >100,000 may have falsely elevated Potassium levels. ??For accurate Potassium quantification in these patients send serum separator tube (gold top) for subsequent determinations. ??Contact the Clinical Chemistry Laboratory if there are any questions. Chloride 104 98 - 107 mmol/L CERNER MILLENNIUM Carbon Dioxide 24 22 - 31 mmol/L CERNER MILLENNIUM Anion Gap 8 5 - 15 mmol/L CERNER MILLENNIUM Blood specimen (specimen) 07/01/2011 11:00 AM EST 07/01/2011 11:04 AM EST Deisy Castro MD CHEMISTRY ORDERABL ES [facility] documented in this encounter Visit Diagnoses Diagnosis Unspecified high-risk - Primary Unspecified high-risk documented in this encounter Care Teams Scientist Relationship Specialty Start Date End Date Becca Dsouza APRN PCP - General 10/02/10 07/31/12 documented as of this encounter
--- OUTSIDE RECORDS SUMMARY | 2024-07-06 22:52 | XMS_ITS | Encounter Summary ---
Author Organization [facility] Address [facility] [place] [address] Care Team Providers Care Financial Reporting Advisor Name Role Phone Becca Dsouza APRN Primary Care Provider [phone] Encounter Details Date Type Department Care Team (Latest Contact Info) Description 03/10/2011 12:34 PM EDT - 03/10/2011 11:59 PM EDT Hospital [place] [id number] CLINIC, Edyta Thompson MD [facility] OBSTETRICS [place] [address] with poor obstetric history Discharge Disposition: Home Social History Tobacco Use [...] Sig Dispensed Refills Start Date End Date vitamin 27 & [id number]-ekyx-LX 60 mg (Iron)-1 mg tablet Take 1 tablet by mouth daily. documented as of this encounter Plan of Treatment Not on file documented as of this encounter Procedures Procedure Name Priority Date/Time Associated Diagnosis Comments US OB NUCHAL TRANSLUCENCY Routine 03/10/2011 1:26 PM EDT with poor obstetric history documented in this encounter Results * US OB nuchal translucency (03/10/2011 1:26 PM EDT) Anatomical Region Laterality Modality Pelvis, Abdomen Ultrasound 03/10/2011 1:26 PM EDT Narrative 03/10/2011 1:31 PM EDT ?OBSTETRICS REPORT ? (Signed Final 03/10/2011 01:31 pm) Patient Info ID: ? [id number] ? : ??[birth year] (30 yrs)(F) Name: ? JAMILMariaaSTEPH ?Visit Date: 03/10/2011 01:23 pm ? ELISSA Performed By Performed By: ?? Salome Fernandes RDMS Attending: ?Veto KWON, Dipesh Acevedo Referred By: ?JUS JOSEPH MD Accession#: ? [id number] Service(s) Provided UNT - Nuchal Translucency - First Trimester ? [address]9450 Screening - [id number] Indications First ??Trimester Screening - Check Nuchal [...] us to participate in the care of CASASNDRA MERINO. Please do not hesitate to call if you have any questions. ?Dipesh Laws MD Electronically Signed Final Report ?? 03/10/2011 01:31 pm Procedure Note Dipesh Laws MD - 03/10/2011 OBSTETRICS REPORT (Signed Final 03/10/2011 01:31 pm) Patient Info ID: [id number] : [birth year] (30 yrs)(F) Name: CASSANDRA Visit Date: 03/10/2011 01:23 pm ELISSA Performed By Performed By: Salome Fernandes [facility] Attending: Dipesh Laws MD Referred By: JUS JOSEPH MD Service(s) Provided UNT - Nuchal Translucency - First Trimester 10128 Screening - [id number] Indications First Trimester Screening - Check Nuchal [...] us to participate in the care of JAMILMariaaSTEPH MERINO. Please do not hesitate to call if you have any questions. Dipesh Laws MD Electronically Signed Final Report 03/10/2011 01:31 pm E Socorro Vallejo MD IMG OB ORDERAB LES documented in this encounter Visit Diagnoses Diagnosis with poor obstetric history with other poor obstetric history documented in this encounter Care Teams Financial Reporting Advisor Relationship Specialty Start Date End Date Becca Dsouza APRN PCP - General 10/02/10 07/31/12 documented as of this encounter
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
--- OUTSIDE RECORDS SUMMARY | 2024-07-06 22:52 | XMS_ITS | Encounter Summary ---
Author Organization [facility] Address [facility] [place] [address] Care Team Providers Care Automobile Damage Appraiser Name Role Phone Becca Dsouza APRN Primary Care Provider [phone] Reason for Visit * Reason Comments Initial Visit Encounter Details Date Type Department Care Team (Late st Contact Info) Description 06/15/2011 10:00 AM EST Routine Obstetrics [place] [address] Deisy Garcia MD [facility] DR OBSTETRICS [place] [address] GA: [id number] Discharge Disposition: Home Social History Tobacco Use [...] Sign Reading Time Taken Comments Blood Pressure 138/80 06/15/2011 9:34 AM EST Pulse - - Temperature - - Respiratory Rate - - Oxygen Saturation - - Inhaled Oxygen Concentration - - Weight 102.8 kg (226 lb 11.2 oz) 06/15/2011 9:34 AM EST Height - - Body Mass Index 36.04 03/02/2011 2:47 PM EDT documented in this encounter Progress Notes * Deisy Garcia MD - 06/15/2011 10:53 AM EST Addendum: Has not taken 17 OHP in 1.5 weeks due to FOB doesn't want her to take it after reading information on the internet. Discussed PTB recurrence and 17OHP effects. States she will restart today. Want GCT in [facility], order given. We prep neg clue and yeast. F/u 2 weeks. * Deisy Garcia MD - 06/15/2011 10:24 AM EST C/o daily recurrent palpitations like last . S/p event monitor s/p echo, sp EKG in last . Feels pressure, no painful contractions, no LOF, and no bleeding. C/o vaginal pressure and pain after sex. C/o urgency. C/o reflux Sx's. Protonix 40mg QD. S/p 17OHP weekly. Clean catch for urine dip and possible UCx. Refer back to Dr. Solis given past h/o palpitations requiring B- Noe for symptomatic control. documented in this encounter Plan of Treatment Not on file documented as of this encounter Procedures Procedure Name Priority Date/Time Associated Diagnosis Comments URINE CULTURE Routine 06/15/2011 10:32 AM EST Unspecified high-risk documented in this encounter Results * Urine culture Clean Catch Urine (06/15/2011 10:32 AM EST) Urine Culture ? Patient Name: CASSANDRA MERINO ?Ordered By: DEISY GARCIA ? MR#: [id number] ?LOC: ??5L ? /Sex: ??1980 (30 years), ? Female ? PROCEDURE: Urine Culture ?SOURCE: U CC ? COLLECTED: 06/15/2011 10:32 ? STARTED: 06/15/2011 12:34 ? FINAL REPORT ? Final Report ? Verified: 012 11:20 ? Greater than 100,000 cfu/ml mixed mucosal matt ? Note: Multiple bacterial morphotypes present. Suggest appropriate ? recollection with timely delivery to ? the laboratory, if clinically significant. ? CERNER MILLENNIUM Urine specimen obtained by clean catch procedure (specimen) 06/15/2011 10:32 AM EST 06/15/2011 12:34 PM EST Deisy Garcia MD MICROBIOLOGY - GEN ERAL ORDERABLES DAMION BARRIOS documented in this encounter Visit Diagnoses Diagnosis Unspecified high-risk documented in this encounter Care Teams Automobile Damage Appraiser Relationship Specialty Start Date End Date Becca Dsouza APRN PCP - General 10/02/10 07/31/12 documented as of this encounter
--- OUTSIDE RECORDS SUMMARY | 2024-07-06 22:52 | XMS_ITS | Encounter Summary ---
Author Organization Formerly [facility], Later [facility] Address [facility] [place] [address] Care Team Providers Care Digital Media Sales Consultant Name Role Phone Becca Dsouza APRN Primary Care Provider [phone] Reason for Visit * Reason Comments Routine Visit Encounter Details Date Type Department Care Team (Latest Contact Info) Description 04/14/2011 9:00 AM EDT Routine Obstetrics [place] [address] Edyta Vallejo MD [facility] DR OBSTETRICS [place] [address] GA: 17w1d Discharge Disposition: Home Social History Tobacco Use [...] Sign Reading Time Taken Comments Blood Pressure 116/66 04/14/2011 9:05 AM EDT Pulse - - Temperature - - Respiratory Rate - - Oxygen Saturation - - Inhaled Oxygen Concentration - - Weight 93.7 kg (206 lb 8 oz) 04/14/2011 9:05 AM EDT Height - - Body Mass Index 32.83 03/02/2011 2:47 PM EDT documented in this encounter Progress Notes * Edyta Vallejo MD - 04/14/2011 9:21 AM EDT Good movement: like flutters. Some round ligament pain. No contractions/ leaking fluid / bleeding. No headache, vision changes, RUQ pain. Reveiwed optimal weight gain goals. Reviewed rational for progesterone injections for prevention of delivery. First inj today. Wonders about having some inj appointments locally. Will explore with Patrizia RTC 1 week. Morph scan 1 - 2 weeks. documented in this encounter Plan of Treatment Not on file documented as of this encounter Results * US OB Targeted Morphology (04/22/2011 9:04 AM EST) Anatomical Region Laterality Modality Pelvis, Abdomen Ultrasound 04/22/2011 9:04 AM EST Narrative 04/22/2011 9:08 AM EST ? OBSTETRICS REPORT ? (Signed Final 04/22/2011 09:07 am) Patient Info ID: ?[id number] ?: ??[birth year] (30 yrs)(F) Name: ?JAMILMariaaSTEPH ? Visit Date: 04/22/2011 08:49 am ?ELISSA Performed By Performed By: ?? Willam DOBSON, ??Ava Attending: ?Maggie KWON, Bert Fletcher Referred By: ?JUS JOSEPH MD Accession#: ? [id number] Service(s) Provided [facility] - Targeted Morphology - Genetics - ? [id number] Indications H/o delivery Evaluation Num Of Fetuses: ?1 Preg. Location: ?Uterus Heart Rate: ??152 ? bpm Cardiac Activity: ??Observed, normal rhythm Presentation: ?Breech Placenta: ?Anterior P. Cord ?Within Normal Limits Insertion: Amniotic Fluid OC FV: ?Appropriate for gestational age OC Sum: ? 11.14 ?? cm ? Larg Pckt: ? 5.5 ??cm RUQ: ?? 5.5 ?cm ? LUQ: ?? 2.7 ?cm RLQ: ?? 0.97 ?? cm ? LLQ: ?? 1.97 ?? cm -------- Biometry -------- BPD: ?36.8 ??mm ?G. Age: ?? 17w 2d HC: ?148.3 ??mm ?G. Age: ?? 18w 0d AC: ?124.5 ??mm ?G. Age: ?? 18w 0d FL: ? 24.6 ??mm ?G. Age: ?? 17w 3d HUM: ?25 ??mm ?G. Age: ?? 17w 6d CER: ?16.9 ??mm ?G. Age: ?? 16w 6d CI: ? 63.82 ??% ? 70 - 86 FL/HC: ? 16.6 ??% ? 16.1 - 18.3 HC/AC: ? 1.19 ?1.09 - 1.39 FL/BPD: ?66.8 ??% FL/AC: ? 19.8 ??% ? 20 - 24 Est. FW: ? 209 ??gm ?0 lb 7 oz Gestational Age LMP: ? 18w 6d ?Date: ??12/11/10 ? RADHA: ?? 09/17/11 U/S Today: ? 17w 5d ?RADHA: ?? 09/25/11 Best: ?18w 6d ?? Det. By: ??LMP ??(12/11/10) ?RADHA: ?? 09/17/11 Targeted Anatomy Central Nervous System Calvarium: ?Within Normal Limits Intracranial: ? Within Normal Limits Lat. Ventricles: ?Within Normal Limits Cerebellum: ? Within Normal Limits Choroid Plexus: ? Within Normal Limits Cisterna Magna: ? Within Normal Limits Spine Cervical: ? Visualized Thoracic: ? Visualized Lumbar: ? Visualized Sacral: ? Visualized Head/Neck Face: ? Within Normal Limits Nuchal Fold: ?Within Normal Limits Thorax Four Chamber: ? Within Normal Limits Cardiac Motion: ? Normal Rhythm R Outflow Tract: ?Visualized L Outflow Tract: ?Visualized Cardiac [place]: ? Visualized Diaphragm: ?Visualized Abdomen Ventral Wall: ? Visualized Stomach: ?Visualized Lt Kidney: ?Visualized Rt Kidney: ?Visualized Bladder: ?Visualized Extremities Lt Humerus: ? Within Nomal Limits Rt Humerus: ? Within Normal Limits Lt Forearm: ? Within Normal Limits Rt Forearm: ? Within Normal Limits Lt Hand: ?Within Normal Limits Rt Hand: ?Within Normal Limits Lt Femur: ? Within Normal Limits Rt Femur: ? Within Normal Limits Lt Lower Leg: ? Within Normal Limits Rt Lower Leg: ? Within Normal Limits Lt Foot: ?Visualized Rt Foot: ?Visualized Other Umbilical Cord: ? 3 vessel cord Cord Insertion: ? WIthin Normal Limits Comment: ?Nasal Bone: ??5.4 mm Cervix Uterus Adnexa Left Ovary: ?? Not visualized Right Ovary: ??Not visualized Impression 2nd Trimester - Targeted Morphology- Summary Single intrauterine with a gestational age of 18w 6d based on LMP. ??Composite age based on the current ultrasound alone is 17w 5d. ?? Amniotic fluid volume is: Appropriate for gestational age. ??Current growth parameters are consistent indicating normal growth. ??Detailed anatomic evaluation was performed and no structural abnormalities are noted. I ??viewed the images and agree with the above interpretation. Thank you for allowing us to participate in the care of CASSANDRA MERINO. Please do not hesitate to call if you have any questions. ?Bert Serrano MD Electronically Signed Final Report ?? 04/22/2011 09:07 am Procedure Note Bert Srerano MD - 04/22/2011 OBSTETRICS REPORT (Signed Final 04/22/2011 09:07 am) Patient Info ID: [id number] : [birth year] (30 yrs)(F) Name: CASSANDRA Visit Date: 04/22/2011 08:49 am ELISSA Performed By Performed By: Ava Quarles RDMS Attending: Bert Serrano MD Referred By: JUS JOSEPH MD Service(s) Provided [facility] - Targeted Morphology - Genetics - [id number] Indications H/o delivery Evaluation Num Of Fetuses: 1 Preg. Location: Uterus Heart Rate: 152 bpm Cardiac Activity: Observed, normal rhythm Presentation: Breech Placenta: Anterior P. Cord Within Normal Limits Insertion: Amniotic Fluid OC FV: Appropriate for gestational age OC Sum: 11.14 cm Larg Pckt: 5.5 cm RUQ: 5.5 cm LUQ: 2.7 cm RLQ: 0.97 cm LLQ: 1.97 cm -------- Biometry -------- BPD: 36.8 mm G. Age: 17w 2d HC: 148.3 mm G. Age: 18w 0d AC: 124.5 mm G. Age: 18w 0d FL: 24.6 mm G. Age: 17w 3d HUM: 25 mm G. Age: 17w 6d CER: 16.9 mm G. Age: 16w 6d CI: 63.82 % 70 - 86 FL/HC: 16.6 % 16.1 - 18.3 HC/AC: 1.19 1.09 - 1.39 FL/BPD: 66.8 % FL/AC: 19.8 % 20 - 24 Est. FW: 209 gm 0 lb 7 oz Gestational Age LMP: 18w 6d Date: 12/11/10 RADHA: 09/17/11 U/S Today: 17w 5d RADHA: 09/25/11 Best: 18w 6d Det. By: LMP (12/11/10) RADHA: 09/17/11 Targeted Anatomy Central Nervous System Calvarium: Within Normal Limits Intracranial: Within Normal Limits Lat. Ventricles: Within Normal Limits Cerebellum: Within Normal Limits Choroid Plexus: Within Normal Limits Cisterna Magna: Within Normal Limits Spine Cervical: Visualized Thoracic: Visualized Lumbar: Visualized Sacral: Visualized Head/Neck Face: Within Normal Limits Nuchal Fold: Within Normal Limits Thorax Four Chamber: Within Normal Limits Cardiac Motion: Normal Rhythm R Outflow Tract: Visualized L Outflow Tract: Visualized Cardiac [place]: Visualized Diaphragm: Visualized Abdomen Ventral Wall: Visualized Stomach: Visualized Lt Kidney: Visualized Rt Kidney: Visualized Bladder: Visualized Extremities Lt Humerus: Within Nomal Limits Rt Humerus: Within Normal Limits Lt Forearm: Within Normal Limits Rt Forearm: Within Normal Limits Lt Hand: Within Normal Limits Rt Hand: Within Normal Limits Lt Femur: Within Normal Limits Rt Femur: Within Normal Limits Lt Lower Leg: Within Normal Limits Rt Lower Leg: Within Normal Limits Lt Foot: Visualized Rt Foot: Visualized Other Umbilical Cord: 3 vessel cord Cord Insertion: WIthin Normal Limits Comment: Nasal Bone: 5.4 mm Cervix Uterus Adnexa Left Ovary: Not visualized Right Ovary: Not visualized Impression 2nd Trimester - Targeted Morphology- Summary Single intrauterine with a gestational age of 18w 6d based on LMP. Composite age based on the current ultrasound alone is 17w 5d. Amniotic fluid volume is: Appropriate for gestational age. Current growth parameters are consistent indicating normal growth. Detailed anatomic evaluation was performed and no structural abnormalities are noted. I viewed the images and agree with the above interpretation. Thank you for allowing us to participate in the care of JAMILMariaaSTEPH MERINO. Please do not hesitate to call if you have any questions. Bert Serrano MD Electronically Signed Final Report 04/22/2011 09:07 am E Socorro Vallejo MD [facility] OB ORDERAB LES documented in this encounter Visit Diagnoses Diagnosis , high-risk- Primary Unspecified high-risk History of delivery, currently with history of pre-term labor Anxiety Anxiety state, unspecified Active smoker Tobacco use disorder Asthma Unspecified asthma , high-risk Unspecified high-risk documented in this encounter Administered Medications Inactive Administered Medications - up to 3 most recent administrations Medication Order MAR Action Action Date Dose Rate Site Hydroxyprogesterone Caproate Syrg 250 mg 250 mg, Intramuscular, WEEKLY, First dose on Tue04/14/11 at 1000, 19 doses, Last dose on Tue08/18/11 at 0900 Given 04/22/2011 9:19 AM EST 250 mg Left Upper Outer Quadrant Given 04/14/2011 9:30 AM EDT 250 mg Ri ght Upper Outer Quadrant documented in this encounter Care Teams Digital Media Sales Consultant Relationship Specialty Start Date End Date Becca Dsouza APRN PCP - General 10/02/10 07/31/12 documented as of this encounter
--- OUTSIDE RECORDS SUMMARY | 2024-07-06 22:52 | XMS_ITS | Encounter Summary ---
Author Organization [facility] [place] [address] Care Team Providers Care Activity Manager Name Role Phone MeetBecca hansen SEED CLEANING MANAGER Primary Care Provider [phone] Reason for Visit * Reason Comments Injections Encounter Details Date Type Department Care Team (Late st Contact Info) Description 04/22/2011 9:15 AM EST Office Visit Obstetrics [place] [id number] Supervision of other normal (Primary Dx) Social History Tobacco Use Types [...] as of this encounter Progress Notes * Lissy Coronado LPN - 04/22/2011 9:27 AM EST Will ask Tiara Childers to arrange for record admin closer to home..took med will bring it back if next injhere documented in this encounter Plan of Treatment Not on file documented as of this encounter Visit Diagnoses Diagnosis Supervision of other normal - Primary documented in this encounter Administered Medications Inactive [...] Quadrant documented in this encounter Care Teams Activity Manager Relationship Specialty Start Date End Date Becca Dsouza APRN PCP - General 10/02/10 07/31/12 documented as of this encounter
--- OUTSIDE RECORDS SUMMARY | 2024-07-06 22:52 | XMS_ITS | Encounter Summary ---
Author Organization [facility] [place] [address] Care Team Providers Care Manager Strategic Name Role Phone None Primary Care Provider Unavailabl e Reason for Visit * Reason Comments Elective Encounter Details Date Type Department Care Team (Late st Contact Info) Description 08/01/2012 10:00 AM EST Office Visit Obstetrics [place] [address] Aliyah Boland APRN [facility] OBSTETRICS & [place] [address] Unplanned (Primary Dx) Discharge Disposition: Home Social History Tobacco Use [...] Sign Reading Time Taken Comments Blood Pressure 120/70 08/01/2012 9:56 AM EST Pulse - - Temperature - - Respiratory Rate - - Oxygen Saturation - - Inhaled Oxygen Concentration - - Weight 73.3 kg (161 lb 11.2 oz) 08/01/2012 9:56 AM EST Height 167.6 cm (5' 6) 08/01/2012 9:56 AM EST Body Mass Index 26.1 08/01/2012 9:56 AM EST documented in this encounter Progress Notes * Aliyah Boland APRN - 08/01/2012 10:15 AM EST Reason for visit: TOP Pt is a 31 yo G 7 P 3 female seen today due to an unplanned . The is at 6 weeks 5 days Di di twin gestation based on US today. Pt has spoken to PFS and she has given me the receiptof payment. Her LMP is beginning of June. She breast feeds her 10 month old daughter at night.. Her cycles are regular. Blood type is O positive. She had been using condom for contraception and has chosen to use permanent sterilization after termination. She states she had an annual exam recently and is up to date with her Pap. Significant medical, surgical obstetrical and gynecological history: There is no maternal history of: adrenal insufficiency, anticoagulation, recent high dose steroid use or porphyria. She is . Will give Azithromycin instead of Doxycycline She understands her options are to continue with the and keep the child, continue with the and give the child up for adoption or terminate the . She states her decision is made freely to terminate the . The procedure was discussed thouroughly as well as the risks of the procedure. All of her questions were answered. She signed the surgical consent form. Social History: with 3 children. Youngest is 10 months old. She does not work outside the home. PE: deferred Assessment: 6 week 5 day IUP di di twins scheduled for first trimester TOP Significant medical issues: twin gestation, currently breast feeding 10 month old Plan After a long discussion and tears, pt has opted to go home and talk with her about the US finding of a twin gestation. She did take Azithromycin 1 gm but did not take any of the other meds. Igave her a reschedule time of next week if she opts to terminate, Misoprostol 200 mcg PV to be inserted morning of procedure. Also given Toradol 30 mg in an envelope to be taken one hr prior to procedure. I will efax Azithromycin 1 gm prior to procedure sent to [facility]. cc: [] with copy of ultrasound and this note. documented in this encounter Miscellaneous Notes * Miscellaneous - Provider, Scanning - 08/22/2012 9:48 AM EDT documented in this encounter Plan of Treatment Not on file documented as of this encounter Visit Diagnoses Diagnosis Unplanned - Primary state, incidental documented in this encounter Care Teams Manager Strategic Relationship Specialty Start Date End Date None None PCP - General 08/01/12 11/04/15 documented as of this encounter
--- OUTSIDE RECORDS SUMMARY | 2024-07-06 22:52 | XMS_ITS | Encounter Summary ---
Author Organization [facility] [place] [address] Care Team Providers Care Toolroom Keeper Name Role Phone Saniya Pascual APRN Primary Care Provider [phone] Encounter Details Date Type Department Care Team (Latest Contact Info) Description 12/22/2023 Travel Social History Tobacco Use Types Packs/Day Years [...] on filedocumented in this encounter Care Teams Toolroom Keeper Relationship Specialty Start Date End Date Saniya Pascual APRN [address] [place], [place] [address] PCP - General Family Medicine 03/29/19 documented as of this encounter
--- OUTSIDE RECORDS SUMMARY | 2024-07-06 22:52 | XMS_ITS | Encounter Summary ---
Author Organization [facility] Address [facility] [place] [address] Care Team Providers Care Final Touch Up Painter Name Role Phone Saniya Pascual APRN Primary Care Provider [phone] Encounter Details Date Type Department Care Team (Late st Contact Info) Description 12/22/2023 Orders [place] [address] Yuly Hwang MD [facility] [place] [address] Social History Tobacco Use Types Packs/Day Years [...] on filedocumented in this encounter Care Teams Final Touch Up Painter Relationship Specialty Start Date End Date Saniya Pascual APRN [address] [place] [address] PCP - General Family Medicine 03/29/19 documented as of this encounter
--- OUTSIDE RECORDS SUMMARY | 2024-07-06 22:52 | XMS_ITS | Encounter Summary ---
Author Organization [facility] Address [facility] [place] [address] Care Team Providers Care Manager Fitness Name Role Phone None Primary Care Provider Unavailabl e Encounter Details Date Type Department Care Team (Latest Contact Info) Description 08/01/2012 9:00 AM EST - 08/01/2012 11:59 PM EST Hospital En[place] [address] CLINIC, DR JEREMIAS Kwan, Kal Lan MD Termination of Discharge Disposition: Home Social History Tobacco Use [...] mouth 2 times daily. vitamin 27 & [id number] 60 mg (Iron)-1 mg tablet Take 1 tablet by mouth daily. documented as of this encounter Plan of Treatment Not on file documented as of this encounter Procedures Procedure Name Priority Date/Time Associated Diagnosis Comments US OB TRANSVAGINAL Routine 08/01/2012 9: 30 AM EST Termination of documented in this encounter Results * US OB transvaginal (08/01/2012 9:30 AM EST) Anatomical Region Laterality Modality Pelvis, Abdomen Ultrasound 08/01/2012 9:30 AM EST Narrative 08/01/2012 9:56 AM EST ?OBSTETRICS REPORT ? (Signed Final 08/01/2012 09:55 am) Patient Info ID: ? [id number] ? : ??[birth year] (31 yrs)(F) Name: ? JAMIL-STEPH ?Visit Date: 08/01/2012 09:07 am ? ELISSA Performed By Performed By: ?Klaudia Cruz RDMS Associate: ? Shawn KWON, Socorro Andersen Attending: ? Veto KWON, Dipesh Acevedo Referred By: ? KAL KWAN MD Service(s) Provided UOBTV - Viability - Cervical Length - Transvaginal - ??[id number] Indications TOP, Dating Evaluation (Fetus A) Num [...] Final 08/01/2012 09:55 am) Patient Info ID: [id number] : 82 (31 yrs)(F) Name: CASSANDRA Visit Date: 08/01/2012 09:07 am ELISSA Performed By Performed By: Klaudia Cruz RDMS Associate: Shawn KWON, Socorro Andersen Attending: Dipesh Laws MD Referred By: KAL KWAN MD Service(s) Provided UOBTV - Viability - Cervical Length - Transvaginal - [id number] Indications TOP, Dating Evaluation (Fetus A) Num [...] (Fetus B) Best: 6w 5d Det. By: U/S C [...] this encounter Visit Diagnoses Diagnosis Termination of Termination of (fetus) documented in this encounter Care Teams Manager Fitness Relationship Specialty Start Date End Date None None PCP - General 08/01/12 11/04/15 documented as of this encounter
--- OUTSIDE RECORDS SUMMARY | 2024-07-06 22:52 | XMS_ITS | Encounter Summary ---
Author Organization [facility] Address [place] [address] Care Team Providers Care Pewter Caster Name Role Phone Becca Dsouza MEN'S LOCKER ROOM ATTENDANT Primary Care Provider [phone] Encounter Details Date Type Department Care Team (Latest Contact Info) Description 03/02/2011 1:21 PM EDT - 03/02/2011 11:59 PM EDT Hospital [place] [id number] CLINIC, DR MCDOWELL with uncertain dates Social History Tobacco Use Types Packs/Day Years [...] Start Date End Date vitamin 27 & [id number]-GZ 60 mg (Iron)-1 mg tablet Take 1 tablet by mouth daily. documented as of this encounter Plan of Treatment Not on file documented as of this encounter Procedures Procedure Name Priority Date/Time Associated Diagnosis Comments US OB TRANSVAGINAL Routine 03/02/2011 2: 23 PM EDT Supervision of other high-risk documented in this encounter Results * US OB TRANSVAGINAL (03/02/2011 2:23 PM EDT) Anatomical Region Laterality Modality Pelvis, Abdomen Ultrasound 03/02/2011 2:23 PM EDT Narrative 03/02/2011 3:11 PM EDT ?OBSTETRICS REPORT ? (Signed Final 03/02/2011 03:10 pm) Patient Info ID: ? [id number] ? : ??[birth year] (30 yrs)(F) Name: ? CASSANDRA ?Visit Date: 03/02/2011 01:58 pm ? GRANGER Performed By Performed By: ?? Willis ??RDMS, BS, RTR, Lu Associate: ?Frannie KWON, Kal Alcaraz Attending: ?Natacha KWON, Isatu JTomas Referred By: ?JOSE Nolan MD Accession#: ? [id number] Procedures UOBTV - Viability - Cervical Length - Transvaginal - ??[id number] Indications Viability, transvaginal Unsure of dates, irregular menses, ck dates and viability Evaluation Preg. Location: ?Uterus Gest. Sac: ? Visualized Yolk Sac: ?Visualized Pole: ?Visualized Heart Rate: ??165 ?bpm Cardiac Activity: ??Observed Presentation: ?Variable Placenta: ?Too early to evaluate Amniotic Fluid OC FV: ?Too early to evaluate -------- Biometry -------- CRL: ?40.7 ??mm ?G. Age: ?? 11w 0d ?RADHA: ?? 09/21/11 Gestational Age LMP: ? 11w 4d ?Date: ??12/11/10 ? RADHA: ?? 09/17/11 Best: ?11w 4d ?? Det. By: ??LMP ??(12/11/10) ?RADHA: ?? 09/17/11 Cervix Uterus Adnexa Left Ovary: ?Not visualized Right Ovary: ?? Not visualized -------- Comments -------- Transducer # ??10 Impression 1st Trimester Summary Single living embryo with a gestational age of 11w 4d based on LMP. The crown rump length corresponds to a gestational age of 11w 0d. I ??viewed the images and agree with the above interpretation. Thank you for allowing us to participate in the care of JAMILMariaaSTEPH MERINO. Please do not hesitate to call if you have any questions. ? Isatu Manzano MD Electronically Signed Final Report ?? 03/02/2011 03:10 pm Film and interpretation reviewed by the attending Procedure Note Isatu Manzano MD - 03/02/2011 OBSTETRICS REPORT (Signed Final 03/02/2011 03:10 pm) Patient Info ID: [id number] : [birth year] (30 yrs)(F) Name: CASSANDRA Visit Date: 03/02/2011 01:58 pm GRANGER Performed By Performed By: Willis DOBSON, BS, RTR, Lu Associate: Kal Kathleen MD Attending: Isatu Manzano MD Referred By: JOSE Nolan MD Procedures UOBTV - Viability - Cervical Length - Transvaginal - [id number] Indications Viability, transvaginal Unsure of dates, irregular menses, ck dates and viability Evaluation Preg. Location: Uterus Gest. Sac: Visualized Yolk Sac: Visualized Pole: Visualized Heart Rate: 165 bpm Cardiac Activity: Observed Presentation: Variable Placenta: Too early to evaluate Amniotic Fluid OC FV: Too early to evaluate -------- Biometry -------- CRL: 40.7 mm G. Age: 11w 0d RADHA: 09/21/11 Gestational Age LMP: 11w 4d Date: 12/11/10 RADAH: 09/17/11 Best: 11w 4d Det. By: LMP (12/11/10) RADHA: 09/17/11 Cervix Uterus Adnexa Left Ovary: Not visualized Right Ovary: Not visualized -------- Comments -------- Transducer # 10 Impression 1st Trimester Summary Single living embryo with a gestational age of 11w 4d based on LMP. The crown rump length corresponds to a gestational age of 11w 0d. I viewed the images and agree with the above interpretation. Thank you for allowing us to participate in the care of CASSANDRA MERINO. Please do not hesitate to call if you have any questions. Isatu Manzano MD Electronically Signed Final Report 03/02/2011 03:10 pm Film and interpretation reviewed by the attending Lila Godfrey MD IMG US OB ORDERABLES documented in this encounter Visit Diagnoses Diagnosis with uncertain dates state, incidental documented in this encounter Care Teams Pewter Caster Relationship Specialty Start Date End Date Becca Dsouza APRN PCP - General 10/02/10 07/31/12 documented as of this encounter
--- OUTSIDE RECORDS SUMMARY | 2024-07-06 22:52 | XMS_ITS | Encounter Summary ---
[place] [address] Care Team Providers Care Oil Separator Name Role Phone Becca Dsouza APRN Primary Care Provider [phone] Encounter Details Date Type Department Care Team (Latest Contact Info) Description 04/22/2011 8:15 AM EST Routine [address] [address] Bert Serrano MD GA: 18w2d Discharge Disposition: Home Social History Tobacco Use [...] Sign Reading Time Taken Comments Blood Pressure 122/78 04/22/2011 9:04 AM EST Pulse - - Temperature - - Respiratory Rate - - Oxygen Saturation - - Inhaled Oxygen Concentration - - Weight 94.5 kg (208 lb 6.4 oz) 04/22/2011 9:04 A M EST Height - - Body Mass Index 33.13 03/02/2011 2:47 PM EDT documented in this encounter Progress Notes * Bert Serrano MD - 04/22/2011 9:07 AM EST C/o constipation requiring an ED visit. I advised her to start colace and metamucil. Wants to do some shots closer to home, will see if we can arrange that. If she can, then f/u with FMF in 2-3 weeks. FM present. No contractions, leaking or bleeding. documented in this encounter Plan of Treatment Not on file documented as of this encounter Visit Diagnoses Diagnosis High-risk supervision Unspecified high-risk History of premature delivery with history of pre-term labor documented in this encounter Care Teams Oil Separator Relationship Specialty Start Date End Date Becca Dsouza APRN PCP - General 10/02/10 07/31/12 documented as of this encounter
--- OUTSIDE RECORDS SUMMARY | 2024-07-06 22:52 | XMS_ITS | Encounter Summary ---
Author Organization [facility] Address [facility] [place] [address] Care Team Providers Care Supervisor [place] Name Role Phone Meet, Becca PEDIATRICS HOSPITALIST Primary Care Provider [phone] Encounter Details Date Type Department Care Team (Latest Contact Info) Description 04/22/2011 8:10 AM EST - 04/22/2011 11:59 PM EST Hospital Encounter Ultrasound at [facility] [place] [phone] , high-risk Social History Tobacco Use Types Packs/Day [...] Sig Dispensed Refills Start Date End Date docusate sodium (COLACE) 100 mg capsule Take 100 mg by mouth 2 times daily. vitamin 27 & hyknxcc-ryev-OX 60 mg (Iron)-1 mg tablet Take 1 [...] Priority Date/Time Associated Diagnosis Comments US OB DETAILED MORPHOLOGY Routine 04/22/2011 9:04 AM EST , high-risk documented in this encounter Results * US OB Targeted Morphology (04/22/2011 9:04 AM EST) Anatomical Region Laterality Modality Pelvis, Abdomen Ultrasound 04/22/2011 9:04 AM EST Narrative 04/22/2011 9:08 AM EST ? OBSTETRICS REPORT ? (Signed Final 04/22/2011 09:07 am) Patient Info ID: ?[id number] ?: ??[birth year] (30 yrs)(F) Name: ?CASSANDRA ? Visit Date: 04/22/2011 08:49 am ?[facility] Performed By Performed By: ?? Willam DOBSON, ??Ava Attending: ?Maggie KWON, Bert Fletcher Referred By: ?JUS JOSEPH MD Accession#: ? [id number] Service(s) Provided [facility] - Targeted Morphology - Genetics - ? [id number] Indications H/o delivery Evaluation Num Of Fetuses: [...] Tract: ?Visualized L Outflow Tract: ?Visualized Cardiac [place]: ? Visualized Diaphragm: ?Visualized Abdomen Ventral [...] Final 04/22/2011 09:07 am) Patient Info ID: [id number] : [birth year] (30 yrs)(F) Name: CASSANDRA Visit Date: 04/22/2011 08:49 am [facility] Performed By Performed By: Ava Quarles RDMS Attending: Bert Serrano MD Referred By: JUS JOSEPH MD Service(s) Provided [facility] - Targeted Morphology - Genetics - [id number] Indications H/o delivery Evaluation Num Of Fetuses: [...] Tract: Visualized L Outflow Tract: Visualized Cardiac [place]: Visualized Diaphragm: Visualized Abdomen Ventral Wall: [...] 04/22/2011 09:07 am E Socorro Vallejo MD IMG US OB ORDERAB LES documented in this encounter Visit Diagnoses Diagnosis , high-risk Unspecified high-risk documented in this encounter Care Teams Supervisor [place] Relationship Specialty Start Date End Date Becca Dsouza APRN PCP - General 10/02/10 07/31/12 documented as of this encounter
--- OUTSIDE RECORDS SUMMARY | 2024-07-06 22:52 | XMS_ITS | Encounter Summary ---
Author Organization [facility] Address [facility] [place] [address] Care Team Providers Care Application Designer Name Role Phone Becca Dsouza APRN Primary Care Provider [phone] Encounter Details Date Type Department Care Team (Latest Contact Info) Description 03/10/2011 1:39 PM EDT - 03/10/2011 11:59 PM EDT Hospital [place] [phone] Edyta Vallejo MD [facility] [place] [address] Discharge Disposition: Home Social History Tobacco Use [...] Start Date End Date vitamin 27 & qlnhris-piei-WA 60 mg (Iron)-1 mg tablet Take 1 tablet by mouth daily. documented as of this encounter Plan of Treatment Not on file documented as of this encounter Procedures Procedure Name Priority Date/Time Associated Diagnosis Comments FIRST TRIMESTER SCREEN Routine 03/10/2011 1:45 PM EDT documented in this encounter Results * FIRST TRIMESTER PROFILE (03/10/2011 1:45 PM EDT) First Trimester Profile (W[facility]) Screen Negative CERNER MILLENNIUM Comment: Please see scanned report in Chart Review under the Non-DH Laboratory Heading. Test performed by [facility], [address] [address] Blood specimen (specimen) 03/10/2011 1:45 PM EDT 03/10/2011 2:23 PM EDT E Socorro Vallejo MD LAB SEND OUT CATHERINE GUERRERO [facility] Organization Address City/State/ZIP Co de Phone Number [facility] documented in this encounter Visit Diagnoses Not on filedocumented in this encounter Care Teams Application Designer Relationship Specialty Start Date End Date Becca Dsouza APRN PCP - General 10/02/10 07/31/12 documented as of this encounter
--- OUTSIDE RECORDS SUMMARY | 2024-07-06 22:52 | XMS_ITS | Encounter Summary ---
Author Organization [facility] [address] Care Team Providers Care Director Of Search Engine Optimization Name Role Phone AnkurSaniya APRN Primary Care Provider [phone] Reason for Referral * Consultation (Routine) - Closed Specialty Diagnoses / Procedures Referred By Contac t Referred To Contact Gastroenterology Diagnoses Gastroesophageal reflux disease, unspecified whether esophagitis present Lorraine Lea MD [facility] [address] [place] [address] [facility] [place] [address] [address] Referral ID Status Reason Start Date Expiration Date V isits Requested Visits Authorized [id number] Closed Consult, Test & Treat 12/22/2023 12/21/2024 1 1 Reason for Visit * Reason Comments Abdominal Pain Encounter Details Date Type Department Care Team (Late st Contact Info) Description 12/22/2023 7:27 PM EDT - 12/22/2023 9:36 PM EDT [place] [address] Puneet Leal MD [facility] [place] [address] Generalized abdominal pain; Gastroesophageal reflux disease, unspecified whether esophagitis present Discharge Disposition: Home Social History Tobacco Use [...] EDT Inhaled Oxygen Concentration - - Weight - - Height - - Body Mass Index - - documented in this encounter Discharge Instructions * Discharge Instructions* Lorraine Lea MD - 12/22/2023 9:08 PM EDT You were evaluated today in the emergency department for your abdominal pain. Laboratory analysis CT scan of your abdomen were reassuring as well as any acute process such as pancreatitis, appendicitis, or infection. We will be sending you home with some medication for nausea and for gastroesophageal reflux diseasesymptoms. We had referred you to gastroenterology for evaluation of your symptoms in clinic. If youdo not hear from the gastroenterology office in the next 2-3 days, please give [facility] gastroenterology a call to schedule an appointment. You may follow-up with your primary care doctor for evaluation of chronic hemorrhoids with additional recommendations for gastro esophageal reflux disease (GERD). Please return to the emergency department if you develop severe worsening of your abdominal pain. If you develop chest pain, shortness of breath, or inability to tolerate food or liquids. * Attachments The following attachments cannot be sent through Care Everywhere. * Abdominal Pain ([place]) * GERD ([place]) documented in this encounter Medications at Time of Discharge Medication Sig Dispensed Refills Start Date End Date promethazine (PHENERGAN) [address] 1 suppository rectally every 6 hours as needed for Nausea (for headache,nausea and sleep (sedating) to help break her migraine.). 15 suppository 02/04/2016 FLUoxetine (PROZAC) 10 mg Capsule Take 20 mg by mouth daily. lamoTRIgine (LAMICTAL) 25 mg Tablet Take 50 mg by mouth daily. omeprazole (PRILOSEC) 20 mg Capsule, Delayed Release(E.C.) Take 20 mg by mouth daily. pantoprazole (PROTONIX) 40 mg tablet Take 1 tablet by mouth daily. 90 tablet 3 06/15/2011 docusate sodium (COLACE) 100 mg capsule Take 100 mg by mouth 2 times daily. vitamin 27 & [id number] 60 mg (Iron)-1 mg tablet Take 1 tablet by mouth daily. sucralfate (Carafate) 1 gram tablet Take 1 tablet by mouth 4 times daily for 14 days. 56 tablet 12/22/2023 01/05/2024 ondansetron ODT (Zofran-ODT) 4 mg disintegrating tablet Take 1 tablet by mouth every 8 hours as needed for Nausea for up to 60 days. 20 tablet 12/22/2023 02/20/2024 documented as of this encounter ED Notes * Lorraine Lea MD - 12/22/2023 9:20 PM EDT ED Resident Note HPI: Jun Merino is a 43 y.o. female who presents to the Emergency Department with multiple concerns. Patient notes that her chronic gastroesophageal reflux disease has been worsening over the past fewmonths. She reports she develops the sensation of acid rising into her throat after eating any foods. 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 She also notes that she has had a few episodes of bright red blood on her toilet paper the past 1 to 2 months. She has known, chronic external hemorrhoids. She has painful bowel movements. She also has generalized lower abdominal pain. Altogether she is worried about these abdominal/GI complaints. She is particularly worried because she was once told that she had pancreatitis at an outside hospital though she did not receive treatment for this and was just sent home. Lauren has recently abstained from alcohol use for the past 5 months. She has had worsening anxiety while making this lifestyle change. She has also decreased her cigarette use to under 1 pack/day. ROS as per HPI Vitals: ED Triage Vitals [12/22/23 1437] BP: 153/88 Heart Rate: 60 Resp: 16 Temp: 37.1 ??C (98.8 ??F) Temp src: Oral SpO2: 99 % O2 Device: RA O2 Flow Rate (L/min): n/a Physical Exam Constitutional: Appearance: Normal appearance. Cardiovascular: Rate and Rhythm: Normal rate and regular rhythm. Pulmonary: Effort: Pulmonary effort is normal. Breath sounds: Normal breath sounds. Abdominal: General: There is no distension. Tenderness: There is no abdominal tenderness. There is no guarding. Comments: Tenderness to deep palpation. Negative McBurney's negative Dey's sign Neurological: Mental Status: She is alert. CT Abdomen & Pelvis w Contrast Final Result 1. No acute findings in the abdomen or pelvis to explain patient symptoms. 2. Trace mesorectal free fluid, nonspecific. Preliminary report signed by: Nandini Hooker at 12/22/2023 8:04 PM I have personally reviewed the image(s) and the resident's interpretation and agree with the findings, Bev Tijerina MD at 12/22/2023 8:30 PM Thank you for letting us participate in the care of this patient. If you are a health care provider and have any questions regarding this report, please contact the number below. For patients who have questions please contact the health health care coordinator that requested your imaging first. Assessment and Plan: 43 y.o. female with acute worsening of chronic abdominal pain. Laboratory analysis was reassuring against acute pancreatitis or gallbladder pathology. CT scan of the abdomen was unremarkable as well.Patient was offered a diphenhydramine/lidocaine GI cocktail for symptoms. Patient was reassured and agreeable to discharge following review of the findings. We have referred patient for outpatient follow-up with gastroenterology. We have additionally prescribed sublingual ondansetron and Carafate for symptom management. The visit findings, diagnosis, and care plan were discussed with the patient. The diagnosis and care plans discussions were outlined in the discharge instructions. The patient expressed understanding of the details of the visit, the return precautions and that she should return to the ER at any time for worsening symptoms, new symptoms, or other concerns. she agrees with thefollow- up plan. Lorraine Lea MD Resident 12/22/232138 Associated attestation - Puneet Leal MD - 12/22/2023 11:45 PM EDT ED ATTENDING ATTESTATION The patient was seen in conjunction with the resident physician. I have independently performed thekey portions of the history and physical exam. I have personally reviewed nursing notes, vital signs, and diagnostic studies including labs, imaging studies and EKGs. I have discussed the details of the case with the resident and agree with the assessment and plan as described in the resident's note, unless stated otherwise in my separate note. Did this case involve critical care? No * Puneet Leal MD - 12/22/2023 8:24 PM EDT ED Attending Brief Note The patient was seen in conjunction with the resident physician. I have independently performed thekey portions of the history and physical exam. I have reviewed the diagnostic studies including labs, imaging studies and EKGs. I have discussed the details of the case with the resident. Brief Summary: 43 y.o. female with diffuse GI symptoms x 2 months. She has had worsening reflux, worse with food, positional changes, and generalize lower abdominal pain. She has had some known hemorrhoids and bleeding on her toilets. Free from alcohol x 5 months. . Her exam is benign Labs Reviewed BASIC METABOLIC PANEL (NON-FASTING) - Abnormal; Notable for the following components: Result Value BUN 7 (*) All other components within normal limits URINALYSIS WITH REFLEX CULTURE - Abnormal; Notable for the following components: Spec [place] UA >=1.030 (*) All other components within normal limits HEMOGRAM - Abnormal; Notable for the following components: WBC 10.1 (*) RDWSD 47.3 (*) All other components within normal limits CBC (WITH DIFF) HEPATIC FUNCTION PANEL LIPASE DIFFERENTIAL, AUTOMATED BLUE TUBE HOLD GOLD TUBE HOLD POCT URINE CT Abdomen & Pelvis w Contrast Preliminary Result 1. No acute findings in the abdomen or pelvis to explain patient symptoms. 2. Trace mesorectal free fluid, nonspecific. Preliminary report signed by: Nandini Hooker at 12/22/2023 8:04 PM 43-year-old with severe reflux symptoms, multiple other abdominal symptoms. Labs and CT scan are reassuring. Will discharge with increased medication and GI follow-up. Did this case involve critical care? No Puneet Leal MD 12/22/23 2343 documented in this encounter Miscellaneous Notes * ED Triage - Della Cisneros RN - 12/22/2023 2:42 PM EDT Patient has hx of having consistent upper GI reflex with burning sensation and vomiting of bile. She cannot eat without having nausea and vomiting of feel of diarrhea. She is 5 months sober and is worried it is pancreatitis. She has increased abdominal pain,lower abd of 10/10, it is intermittent. A&OX3.skin w/p/d. NAD. Last weekend she has rectal bleeding w/bowel movements. She is scared b/c she was asked to endoscopy years ago and didn't f/u and thinks she has cancer or pancreatitis. HX ofGERD, anxiety. Takes nexium 40 mg and famotadide , lives off [place] for the last few days. HPI (Adult) Stated Reason for Visit: intermittent nausea and abdominal pain documented in this encounter Plan of Treatment Scheduled Referrals Name Type Priority Associated Diagnoses Order Schedule Referral to Gastroenterology Outpatient Referral Routine Gastroesophageal reflux disease, unspecified whether esophagitis present Ordered: 12/22/2023 documented as of this encounter Procedures Procedure Name Priority Date/Time Associated Diagnosis Comments URINALYSIS WITH REFLEX CULTURE STAT 12/22/2023 7:[address] ABDOMEN AND PELVIS W CONTRAST STAT 12/22/2023 7:05 PM EDT HEMOGRAM STAT 12/22/2023 5:01 PM EDT DIFFERENTIAL, AUTOMATED STAT 12/22/2023 5:01 PM EDT GOLD TUBE HOLD STAT 12/22/2023 5:01 PM EDT BLUE TUBE HOLD STAT 12/22/2023 5:01 PM EDT CBC (WITH DIFF) STAT 12/22/2023 5:01 PM EDT LIPASE STAT 12/22/2023 5:01 PM EDT HEPATIC FUNCTION PANEL STAT 12/22/2023 5:01 PM EDT BASIC METABOLIC PANEL STAT 12/22/2023 5:01 PM EDT documented in this encounter Results * (ABNORMAL) Urinalysis with reflex Culture (12/22/2023 7:42 PM EDT) Glucose, Urine Dipstick Negative Negative mg/dL [facility] Protein, Urine Dipstick Negative Negative mg/dL [facility] Bilirubin, Urine Dipstick Negative Negative mg/dL [facility] Comment: Clinical correlation required for positive Urine Bilirubin results as false positive may occur with some drugs and drug related products. If a false positive is suspected a serum total bilirubin should be considered if clinically indicated. Urobilinogen, Urine Dipstick Normal Normal mg/dL [facility] pH, Urn (dipstick) 6.5 5.0 - 8.0 [facility] Blood, Urine Dipstick Negative Negative mg/dL [facility] Ketone, Urine Dipstick Negative Negative mg/dL [facility] Nitrite, Urine Dipstick Negative Negative [facility] Leukocytes, Urine Dipstick Negative Negative [facility] Appearance, Urine Dipstick Clear Clear [facility] Specific [place] Urine Automated >=1.030(A) 1.005 - 1.030 [facility] Color, Urine Dipstick Yellow Yellow [facility] Reflex to Culture No [facility] Urine 12/22/2023 7:42 PM EDT 12/22/2023 7:47 PM EDT Narrative Resulting Agency Comment Spec In Lab Puneet Leal MD URINE ORDERABLES [facility] [place] [address] * CT Abdomen & Pelvis w Contrast (12/22/2023 7:05 PM EDT) Pathologist [employer] WORKSTATION ID [id number] RAD Anatomical Region Laterality Modality Abdomen, Pelvis Computed Tomogra phy Impressions 12/22/2023 8:30 PM EDT 1. ??No acute findings in the abdomen or pelvis to explain patient symptoms. 2. ??Trace mesorectal free fluid, nonspecific. Preliminary report signed by: Nandini Hooker at 12/22/2023 8:04 PM I have personally reviewed the image(s) and the resident's interpretation and agree with the findings, Bev Tijerina MD at 12/22/2023 8:30 PM Thank you for letting us participate in the care of this patient. ??If you are a health care provider and have any questions regarding this report, please contact the number below. ??For patients who have questions please contact the health health care coordinator that requested your imaging first. ? Narrative 12/22/2023 8:30 PM EDT EXAMINATION: CT ABDOMEN AND PELVIS W CONTRAST CLINICAL HISTORY: abdominal pain and bloating TECHNIQUE: Helical CT of the abdomen and pelvis following the intravenous administration of contrast. 119 mL Omnipaque 350. Oral contrast was not administered. COMPARISON: None FINDINGS: Lower chest: Normal. Liver: Normal size and attenuation without lesions. Bile ducts: Nondilated. Gallbladder: No calcified gallstones. Normal caliber wall. Pancreas: Normal attenuation without ductal dilatation. Spleen: Normal. Adrenals: Normal. Kidneys: Symmetric nephrograms. No collecting system dilatation, calculus, or mass. Urinary Bladder: Normal. Vasculature: No abdominal aortic aneurysm. Patent portal and hepatic veins. Lymph Nodes: No enlarged lymph nodes. Bowel: Nondilated, no wall thickening. Normal terminal ileum. Redundant sigmoid.. ?? Peritoneum and retroperitoneum: Trace mesorectal free fluid (axial series 3, image 135), nonspecific. Or loculated fluid collection. No pneumoperitoneum. No mesenteric inflammation. Abdominal wall: Normal. Reproductive organs: Hysterectomy. Normal left ovary. Osseous structures: No acute fracture or suspicious lesions. Procedure Note Bev Tijerina MD - 12/22/2023 EXAMINATION: CT ABDOMEN AND PELVIS W CONTRAST CLINICAL HISTORY: abdominal pain and bloating TECHNIQUE: Helical CT of the abdomen and pelvis following theintravenous administration of contrast. 119 mL Omnipaque 350. Oral contrast was not administered. COMPARISON: None FINDINGS: Lower chest: Normal. Liver: Normal size and attenuation without lesions. Bile ducts: Nondilated. Gallbladder: No calcified gallstones. Normal caliber wall. Pancreas: Normal attenuation without ductal dilatation. Spleen: Normal. Adrenals: Normal. Kidneys: Symmetric nephrograms. No collecting system dilatation, calculus,or mass. Urinary Bladder: Normal. Vasculature: No abdominal aortic aneurysm. Patent portal and hepaticveins. Lymph Nodes: No enlarged lymph nodes. Bowel: Nondilated, no wall thickening. Normal terminal ileum. Redundant sigmoid.. Peritoneum and retroperitoneum: Trace mesorectal free fluid (axial series3, image 135), nonspecific. Or loculated fluid collection. Nopneumoperitoneum. No mesenteric inflammation. Abdominal wall: Normal. Reproductive organs: Hysterectomy. Normal left ovary. Osseous structures: No acute fracture or suspicious lesions. IMPRESSION 1. No acute findings in the abdomen or pelvis to explain patientsymptoms. 2. Trace mesorectal free fluid, nonspecific. Preliminary report signed by: Nandini Hooker at 12/22/2023 8:04PM I have personally reviewed the image(s) and the resident's interpretationand agree with the findings, Bev Tijerina MD at 12/22/2023 8:30 PM Thank you for letting us participate in the care of this patient. If youare a health care provider and have any questions regarding this report,please contact the number below. For patients who have questions please contactthe health health care coordinator that requested your imaging first. Ev Herman MD IMG CT ORDERABLES * Gold Tube HOLD (12/22/2023 5:01 PM EDT) [facility] Gold Hold Sample in lab. [facility] Blood Venous Draw / Unknown 12/22/2023 5:01 PM EDT 12/22/2023 5:16 PM EDT Puneet Leal MD CHEMISTRY ORDERABL ES [facility] [place] [address] * Blue Tube HOLD (12/22/2023 5:01 PM EDT) [facility] Blue Hold Sample in lab. [facility] Blood Venous Draw / Unknown 12/22/2023 5:01 PM EDT 12/22/2023 5:16 PM EDT Puneet Leal MD HEMATOLOGY ORDERAB LES Performing Organization Address City/[facility]/ZIP Co de Phone Number [facility] [place] [address] * Differential, Automated (12/22/2023 5:01 PM EDT) Neutrophil % 59.6 % [facility] Neutrophil Absolute 6.01 1.70 - 6.10 x10(3)/[facility] Lymph % 28.9 % [facility] Lymphocytes Abs 2.9 0.9 - 3.2 x10(3)/[facility] Monocyte % 7.3 % [facility] Monocyte Abs 0.7 0.3 - 0.9 x10(3)/[facility] Eos % 2.6 % [facility] Eosinophils Abs 0.3 0.0 - 0.4 x10(3)/[facility] Basophil % 1.2 % [facility] Baso Absolute 0.1 0.0 - 0.1 x10(3)/[facility] Immature Gran % 0.40 % [facility] Comment: Immature granulocytes(IG's)percentage and absolute count will include metamyelocytes, myelocytes, and promyelocytes. Blood smears from CBCs yielding IG's will be scanned manually for concordance. If this scan disagrees with the automated IG or if promyelocytes are noted, a manual differential will be performed. Immature Gran Absolute 0.04 0.00 - 0.04 x10(3)/[facility] Blood 12/22/2023 5:01 PM EDT 12/22/2023 5:15 PM EDT Narrative Resulting Agency Comment Spec In Lab Puneet Leal MD HEMATOLOGY ORDERAB LES Performing Organization Address City/[facility]/ZIP Co de Phone Number [facility] [place] [address] * (ABNORMAL) Hemogram (12/22/2023 5:01 PM EDT) White Blood Cell 10.1(H) 4.0 - 9.5 x10(3)/mc L [facility] Red Blood Cell 4.84 4.00 - 5.21 x10(6)/mc L [facility] Hemoglobin 14.6 11.7 - 15.5 g/dL [facility] Hematocrit 43.9 35.7 - 45.8 % [facility] Mean Cell Volume 90.7 82.6 - 94.4 fL [facility] Mean Cell Hemoglobin 30.2 27.1 - 32.0 pg [facility] Mean Cell Hemoglobin Concentration 33.3 31.7 - 35.0 g/dL [facility] Platelet 290 145 - 357 x10(3)/ L [facility] RDW Standard Deviation 47.3(H) 37.0 - 46.0 fL [facility] RDW coefficient of variation 14.1 11.5 - 14.1 % [facility] Mean Platelet Volume 10.5 7.6 - 12.9 fL [facility] NRBC% auto 0.0 % [facility] NRBC Absolute 0.000 0.000 - 0.000 x10(3)/ L [facility] Blood 12/22/2023 5:01 PM EDT 12/22/2023 5:15 PM EDT Narrative Resulting Agency Comment Spec In Lab Puneet Leal MD HEMATOLOGY ORDERAB LES [facility] [place] [address] * Lipase (12/22/2023 5:01 PM EDT) Lipase 21 0 - 60 unit/L [facility] Blood 12/22/2023 5:01 PM EDT 12/22/2023 5:15 PM EDT Narrative Resulting Agency Comment Spec In Lab Puneet Leal MD CHEMISTRY ORDERABL ES Performing Organization Address [facility] Co de Phone Number [facility] [place] [address] * Hepatic Function Panel (12/22/2023 5:01 PM EDT) [facility] Protein, Total 7.1 6.1 - 8.0 g/dL [facility] Albumin 4.2 3.2 - 5.2 g/dL [facility] Aspartate Aminotransferase 14 0 - 30 unit/L [facility] Alanine Aminotransferase 15 0 - 30 unit/L [facility] Alkaline Phosphatase 70 35 - 105 unit/L [facility] Bilirubin, Total 0.3 0.2 - 1.3 mg/dL [facility] Bilirubin, Direct 0.1 0.0 - 0.3 mg/dL [facility] Blood 12/22/2023 5:01 PM EDT 12/22/2023 5:15 PM EDT Narrative Resulting Agency Comment Spec In Lab Puneet Leal MD CHEMISTRY ORDERABL ES Performing Organization Address [facility] Co de Phone Number [facility] [place] [address] * (ABNORMAL) Basic Metabolic Panel (non-fasting) (12/22/2023 5:01 PM EDT) [facility] Glucose 81 65 - 199 mg/dL [facility] Comment:Diabetes: >=200 mg/d L plus symptoms Blood Urea Nitrogen 7(L) 8 - 18 mg/dL [facility] Creatinine 0.78 0.70 - 1.20 mg/dL [facility] Sodium 143 135 - 145 mmol/L [facility] Potassium 4.2 3.5 - 5.0 mmol/L [facility] Comment: Please note: ??Patients with WBC >100,000 may have falsely elevated Potassium levels. ??For accurate Potassium quantification in these patients send serum separator tube (gold top) for subsequent determinations. ??Contact the Clinical Chemistry Laboratory if there are any questions. Chloride 107 98 - 107 mmol/L [facility] Carbon Dioxide 23 22 - 31 mmol/L [facility] Anion Gap 13 5 - 15 mmol/L [facility] Calcium 9.6 8.5 - 10.5 mg/dL [facility] Est Glomerular Filtration Rate 97 >=60 mL/min/1. 73 m?? [facility] Comment: This patient's estimated GFR was calculated using the 2020 CKD-EPI equation. The estimated GFR can vary from the measured GFR by up to 30% in the absence of rapidly changing kidney function. Assessment of the estimated GFR is not appropriate when creatinine concentrations are rapidly changing. For clinical situations in which a more precise estimate of GFR is necessary, consider alternative methods of GFR estimation such as a 24-hour urine creatinine clearance. Assignment of CKD stage 1-5 for patients with an eGFR near the transition point between stages may be based on clinical assessment of muscle mass and symptoms in addition to eGFR. Blood 12/22/2023 5:01 PM EDT 12/22/2023 5:15 PM EDT Narrative Resulting Agency Comment Spec In Lab Puneet Leal MD CHEMISTRY ORDERABL ES [facility] [place] [address] documented in this encounter Visit Diagnoses Diagnosis Generalized abdominal pain Abdominal pain, generalized Gastroesophageal reflux disease, unspecified whether esophagitis present documented in this encounter Administered Medications Inactive Administered Medications - up to 3 most recent administrations Medication Order MAR Action Action Date Dose Rate Site diphenhydrAMINE/aluminum-magnesiu m hydroxide with simethicone/lidocaine (BMX) (6.67 mg-0.83 mg-13.33 mg-1.33 mg/mL) oral liquid 5 mL 5 mL, Oral, 2 TIMES DAILY, First dose on Ashley 12/22/23 at 2100, Until Discontinued, Each 5 mL contains equal parts of diphenhydramine (BENADYL), aluminum-magnesium hydroxide w/ simethicone (MAALOX), and lidocaine (XYLOCAINE), Routine Given 12/22/2023 8:21 PM EDT 5 mLs iohexoL (Omnipaque) (350 mg/mL) solution 0-200 mL 0-200 mL, Intravenous, ONCE PRN, 1 dose, Starting on Ashley 12/22/23 at 1858, Until Ashley 12/22/23 at 1858, Per Protocol, Warning Vesicant/Irritant Medication , Radiology Contrast, Routine Given 12/22/2023 6:58 PM EDT 119 mLs documented in this encounter Active and Recently Administered Medications Times are shown in EDT. Scheduled Medication Order 12/20/2023 12/21/2023 12/22/2023 diphenhydrAMINE/aluminum-magnesium hydroxide with simethicone/lidocaine (BMX) (6.67 mg-0.83 mg-13.33 mg-1.33 mg/mL) oral liquid 5 mL 5 mL, Oral, 2 TIMES DAILY, First dose on Ashley 12/22/23 at 2100, Until Discontinued, Each 5 mL contains equal parts of diphenhydramine (BENADYL), aluminum-magnesium hydroxide w/ simethicone (MAALOX), and lidocaine (XYLOCAINE), Routine 2020 (Given - Provid er: Mckenna Guerra RN) PRN Medication Order 12/20/2023 12/21/2023 12/22/2023 iohexoL (Omnipaque) (350 mg/mL) solution 0-200 mL (COMPLETED) 0-200 mL, Intravenous, ONCE PRN, 1 dose, Starting on Ashley 12/22/23 at 1858, Until Ashley 12/22/23 at 1858, Per Protocol, Warning Vesicant/Irritant Medication , Radiology Contrast, Routine 185 (Given - Provid er: Mora Mcgraw) documented in this encounter Care Teams Director Of Search Engine Optimization Relationship Specialty Start Date End Date Saniya Pascual APRN [address] [place] [address] PCP - General Family Medicine 03/29/19 documented as of this encounter
--- OUTSIDE RECORDS SUMMARY | 2024-07-06 22:53 | XMS_ITS | Encounter Summary ---
Author Organization [facility] Address [facility] [place] [address] Care Team Providers Care Arabic Teacher Name Role Phone MeetBecca hansen CRACKER AND COOKIE MACHINE OPERATOR Primary Care Provider [phone] Reason for Visit * Reason Onset Date Comments Other 02/05/2011 need u/s order Encounter Details Date Type Department Care Team (Late st Contact Info) Description 02/05/2011 Telephone Obstetrics [place] [phone] Bert Childers, RN Other (need u/s order) Social History Tobacco Use Types Packs/Day Years [...] encounter Miscellaneous Notes * Telephone Encounter - Mayra Coyle - 02/05/2011 10:05 AM EDT Separate order entered, this one no longer needed * Telephone Encounter - Mayra Coyle - 02/05/2011 8:24 AM EDT This is the patient you spoke with prior to your vacation (whose name you weren't sure of). She just called back today. Please sign u/s order so I can get her scheduled documented in this encounter Plan of Treatment Not on file documented as of this encounter Visit Diagnoses Diagnosis state, incidental documented in this encounter Care Teams Arabic Teacher Relationship Specialty Start Date End Date Becca Dsouza APRN PCP - General 10/02/10 07/31/12 documented as of this encounter
--- OUTSIDE RECORDS SUMMARY | 2024-07-06 22:53 | XMS_ITS | Encounter Summary ---
Author Organization [facility] Address [facility] [place] [address] Care Team Providers Care Commercial Loan Underwriter Name Role Phone NachokenJeri APRN Primary Care Provider + Reason for Visit * Reason Onset Date Comments Other 09/23/2010 needs u/s and NO B appointment Encounter Details Date Type Department Care Team (Late st Contact Info) Description 09/23/2010 Telephone Obstetrics [place] [phone] Donis Arenas MD Other (needs u/s and NOB appointment) Social History Tobacco Use Types Packs/Day Years Used Date Smoking Tobacco: Never Assessed Sex and Gender Information Value Date Recorded Sex Assigned at Not on file Gender Identity Not on file Sexual Orientation Not on file documented as of this encounter Miscellaneous Notes * Telephone Encounter - Mayra Coyle - 09/23/2010 10:14 AM EDT Lauren Noel called stating she spoke with a nurse and I was supposed to be calling her to schedule an u/s and OB appointment. I assume it's for dating since she's not sure of her last period. She stated a hx of PTD @28wks, progesterone in subsequent and HTN. Please sign order and let me know what/when she's to be scheduled. documented in this encounter Plan of Treatment Not on file documented as of this encounter Visit Diagnoses Diagnosis Encounter for imaging to assess myocardial viability Radiological examination, not elsewhere classified documented in this encounter Care Teams Commercial Loan Underwriter Relationship Specialty Start Date End Date Jeri Rodriguez APRN [address] [place] [address] PCP - General 05/05/10 10/01/10 documented as of this encounter
--- OUTSIDE RECORDS SUMMARY | 2024-07-06 22:53 | XMS_ITS | Encounter Summary ---
[place] [address] Care Team Providers Care Industrial Furnace Fabricator Name Role Phone Becca Dsouza APRN Primary Care Provider [phone] Encounter Details Date Type Department Care Team (Late st Contact Info) Description 10/02/2010 3:45 PM EDT Initial Obstetrics [place] [phone] GA: 6w3d Social History Tobacco Use Types Packs/Day Years [...] on filedocumented in this encounter Care Teams Industrial Furnace Fabricator Relationship Specialty Start Date End Date Becca Dsouza APRN PCP - General 10/02/10 07/31/12 documented as of this encounter
--- OUTSIDE RECORDS SUMMARY | 2024-07-06 22:53 | XMS_ITS | Encounter Summary ---
Author Organization [facility] [place] [address] Care Team Providers Care Contract Clerk Automobile Name Role Phone Saniya Pascual FREIDA Primary Care Provider [phone] Encounter Details Date Type Department Care Team (Late st Contact Info) Description 09/24/2006 [place] [phone] Shaan Rojas MD OBSTETRICS & GYNECOLOGY Social History Tobacco Use Types Packs/Day Years Used Date Smoking Tobacco: Never Assessed Sex and Gender Information Value Date Recorded Sex Assigned at Not on file Gender Identity Not on file Sexual Orientation Not on file documented as of this encounter Plan of Treatment Not on file documented as of this encounter Procedures Procedure Name Priority Date/Time Associated Diagnosis Comments SURGICAL PATHOLOGY REPORT Routine 09/24/2006 1:30 PM EDT documented in this encounter Results * Surgical Pathology Report (09/24/2006 1:30 PM EDT) Surgical Pathology Report [id number] ? Location: BP; BP19; A The signing pathologist has (i) examined the relevant preparation(s) for the specimen(s) and (ii) rendered or confirmed the diagnosis(es). . ?Pathology Surgical Pathology Final Report Clinical Information Specimen Submitted: A - Placenta. Clinical History: End stage bradycardia. Gross Description Labeled/Fixative: ? Labeled with the patient's name, fresh. Qty/Size/Weight: ?Single, 26 x 20 x 4 cm, 650 g. Tissue Description: ?? Booth placenta. ?? Membranes: ? [place]-zheng and semi-opaque, 100% marginal insertion. ?Membrane rupture site is 6 cm from the margin. ?? Cord: ?90 x 1.0 cm; 3 vessels; paracentral insertion. ?? Surface: ? [place]-blue and clear. ?? Maternal Surface: ??Intact. ?? Parenchyma: ?The specimen is serially sectioned at 0.5-cm to ?1.0-cm intervals. ??Sections show red, spongy ?parenchyma with no gross lesions. Sections/Processing : ??Sections are submitted as follows: ??(1) cord and ?membranes; (2) maternal surface; (3) surface. ?(R3) ??[facility]/SNS Microscopic Description Slides reviewed, microscopic description not recorded. Diagnosis Third trimester placenta, cord and membranes: Negative for chorioamnionitis or funisitis. CR-0 09/28/06 KO 09/28/06 Verified by: ? Tonia Hart MD ?Pathologist ?(Electronic Signature) The attending pathologist whose signature appears on this report has reviewed all diagnostic slides and has edited the gross and/or microscopic portion of the report in rendering the final pathologic diagnosis. DAMION BARRIOS 09/24/2006 1:30 PM EDT Shaan Rojas MD PATHOLOGY/CYTOLOGY ORDERABLES [facility] documented in this encounter Visit Diagnoses Not on filedocumented in this encounter Care Teams Contract Clerk Automobile Relationship Specialty Start Date End Date Saniya Pascual APRN [address] [place] [address] PCP - General Family Medicine 03/29/19 documented as of this encounter
--- OUTSIDE RECORDS SUMMARY | 2024-07-06 22:53 | XMS_ITS | Encounter Summary ---
Author Organization [facility] Address [facility] [place] [address] Care Team Providers Care Teacher Of The Handicapped Name Role Phone Becca Dsouza APRN Primary Care Provider [phone] Reason for Visit * Reason Comments Initial Visit Encounter Details Date Type Department Care Team (Latest Contact Info) Description 10/02/2010 4:15 PM EDT Initial Obstetrics [place] [phone] Lila Godfrey MD [facility] DR OBSTETRICS [place] [address] GA: 6w3d Discharge Disposition: Home Social History Tobacco Use [...] Sign Reading Time Taken Comments Blood Pressure 114/62 10/02/2010 3:35 PM EDT Pulse - - Temperature - - Respiratory Rate - - Oxygen Saturation - - Inhaled Oxygen Concentration - - Weight 84.6 kg (186 lb 8 oz) 10/02/2010 3:35 PM EDT Height 168.9 cm (5' 6.5) 10/02/2010 3:35 PM EDT Body Mass Index 29.65 10/02/2010 3:35 PM EDT documented in this encounter Progress Notes * Lila Godfrey MD - 10/02/2010 6:23 PM EDT YOSI Has lost 80 lb since last and is very fit. Quite smoking this year. Took 17P in last with apparent success. Will need it again. Needs influenza immunization. Will need TDaP Declines genetic testing. RTC 4 weeks. documented in this encounter Miscellaneous Notes * Miscellaneous - Zhen, Compensation/Benefits Specialist - 10/15/2010 12:40 PM EDT * Miscellaneous - Zhen, Compensation/Benefits Specialist - 10/08/2010 10:28 AM EDT documented in this encounter Plan of Treatment Scheduled Orders Name Type Priority Associated Diagnoses Orde r Schedule Urine culture Clean Catch Urine Microbiology Routine Ordered: 10/02/2010 documented as of this encounter Procedures Procedure Name Priority Date/Time Associated Diagnosis Comments POCT URINE DIPSTICK Routine 10/02/2010 4 :00 PM EDT URINE CULTURE Routine 10/02/2010 3:52 PM EDT documented in this encounter Results * POCT urinalysis dipstick (10/02/2010 4:00 PM EDT) POC Sp [place] 1.002 - 1.030 POC pH, UA 5.0 - 8.5 POC Leuk, UA Negative - Negative POC Nitrite, UA Negative - Negative POC Protein, UA negative Negative - Negative mg/dL POC Glucose, UA negative Normal - Normal mg/dL POC Ketone, UA Negative - Negative POC Urobil, UA 0.2 - 1.0 mg/dL POC Bili, UA Negative - Negative POC Blood, UA Negative - Negative mathew/uL 10/02/2010 4:00 PM EDT Lila Godfrey MD POINT OF CARE TEST O RDERABLES * Urine culture Clean Catch Urine (10/02/2010 3:52 PM EDT) Urine Culture ? Patient Name: CASSANDRA MERINO ?Ordered By: LILA GODFREY ? MR#: [id number] ?LOC: ??5L ? /Sex: ?? 2 (29 years), ? Female ? PROCEDURE: Urine Culture ?SOURCE: U CC ? COLLECTED: 10/02/2010 15:52 ? STARTED: 10/02/2010 17:43 ? FINAL REPORT ? Final Report ? Verified: 15:07 ? No growth (Less than 1,000 cfu/ml). ? ____ [facility] Urine specimen obtained by clean catch procedure (specimen) 10/02/2010 3:52 PM EDT 10/02/2010 5:43 PM EDT Lila Godfrey MD MICROBIOLOGY - GENER AL ORDERABLES Performing Organization Address City/State/ZIP [place] Phone Number [facility] documented in this encounter Visit Diagnoses Diagnosis - Primary state, incidental Asthma Unspecified asthma with poor obstetric history with other poor obstetric history Anxiety Anxiety state, unspecified documented in this encounter Care Teams Teacher Of The Handicapped Relationship Specialty Start Date End Date Becca Dsouza APRN PCP - General 10/02/10 07/31/12 documented as of this encounter
--- OUTSIDE RECORDS SUMMARY | 2024-07-06 22:53 | XMS_ITS | Encounter Summary ---
Author Organization [facility] Address [place] [address] Care Team Providers Care Musical Instrument Maker Or Repairer Name Role Phone Becca Dsouza APRN Primary Care Provider [phone] Encounter Details Date Type Department Care Team (Latest Contact Info) Description 10/02/2010 2:55 PM EDT - 10/02/2010 11:59 PM EDT Hospital En[place] [phone] CLINIC, DR JEREMIAS Arenas, Donis Cartwright MD Encounter for imaging to assess myocardial viability Discharge Disposition: Home Social History Tobacco Use [...] Sig Dispensed Refills Start Date End Date cimetidine (TAGAMET) 400 mg tablet Take 400 mg by mouth 2 times daily. 03/02/2011 lansoprazole (PREVACID) 15 mg capsule Take 15 mg by mouth daily. 03/02/2011 FLUTICASONE PROPIONATE (FLOVENT HFA INHL) 11/28/2006 1 documented as of this encounter Plan of Treatment Not on file documented as of this encounter Procedures Procedure Name Priority Date/Time Associated Diagnosis Comments US OB TRANSVAGINAL Routine 10/02/2010 3: 18 PM EDT Radiological examination, not elsewhere classified documented in this encounter Results * US OB TRANSVAGINAL (10/02/2010 3:18 PM EDT) Anatomical Region Laterality Modality Pelvis, Abdomen Ultrasound 10/02/2010 3:18 PM EDT Narrative 10/02/2010 3:24 PM EDT ?OBSTETRICS REPORT ? (Signed Final 10/02/2010 03:20 pm) Patient Info ID: ? [id number] ? : ??[birth year] (29 yrs) Name: ? JAMILMariaaELLY ?Visit Date: 10/02/2010 03:17 pm ? ELISSA Performed By Performed By: ?? OLYA Zuniga ??Gill Attending: ?Gerardo KWON, Lilliam Acevedo Referred By: ?ALDAIR Cartwright MD Accession#: ? [id number] Procedures UOBTV - Viability - Cervical Length - Transvaginal - ??[id number] Indications Viability, transvaginal Evaluation Gest. Sac: ? Visualized Yolk Sac: ?Visualized Pole: ?Visualized Heart Rate: ??118 ?bpm Presentation: ?Variable Placenta: ?Too early to evaluate Amniotic Fluid OC FV: ?Too early to evaluate -------- Biometry -------- CRL: ? 6.4 ??mm ?G. Age: ?? 6w 3d ? RADHA: ?? 05/25/11 Gestational Age Best: ?6w 3d ?Det. By: ??U/S C R L ?RADHA: ?? 05/25/11 ? (10/02/10) Cervix Uterus Adnexa Left Ovary: ?Visualized; Corpus luteal cyst Right Ovary: ?? Visualized Impression 1st Trimester Summary Single living embryo with a gestational age of 6w 3d based on CRL. The crown rump length corresponds to a gestational age of 6w 3d. I ??viewed the images and agree with the above interpretation. Thank you for allowing us to participate in the care of JAMILMariaaELLY MERINO. Please do not hesitate to call if you have any questions. ? Lilliam Carrillo MD Electronically Signed Final Report ?? 10/02/2010 03:20 pm Procedure Note Lilliam Carrillo MD - 10/02/2010 OBSTETRICS REPORT (Signed Final 10/02/2010 03:20 pm) Patient Info ID: [id number] : [birth year] (29 yrs) Name: CASSANDRA Visit Date: 10/02/2010 03:17 pm ELISSA Performed By Performed By: OLYA Zuniga Attending: Lilliam Carrillo MD Referred By: ALDAIR Carwtright MD Procedures UOBTV - Viability - Cervical Length - Transvaginal - [id number] Indications Viability, transvaginal Evaluation Gest. Sac: Visualized Yolk Sac: Visualized Pole: Visualized Heart Rate: 118 bpm Presentation: Variable Placenta: Too early to evaluate Amniotic Fluid OC FV: Too early to evaluate -------- Biometry -------- CRL: 6.4 mm G. Age: 6w 3d RADHA: 05/25/11 Gestational Age Best: 6w 3d Det. By: U/S [place]ree [place] RADHA: 05/25/11 (10/02/10) Cervix Uterus Adnexa Left Ovary: Visualized; Corpus luteal cyst Right Ovary: Visualized Impression 1st Trimester Summary Single living embryo with a gestational age of 6w 3d based on CRL. The crown rump length corresponds to a gestational age of 6w 3d. I viewed the images and agree with the above interpretation. Thank you for allowing us to participate in the care of CASSANDRA MERINO. Please do not hesitate to call if you have any questions. Lilliam Carrillo MD Electronically Signed Final Report 10/02/2010 03:20 pm Donis Arenas MD IMG US OB ORDERABLES documented in this encounter Visit Diagnoses Diagnosis Encounter for imaging to assess myocardial viability Radiological examination, not elsewhere classified documented in this encounter Care Teams Musical Instrument Maker Or Repairer Relationship Specialty Start Date End Date Becca Dsouza APRN PCP - General 10/02/10 07/31/12 documented as of this encounter
[2024-07-06 23:02] LABS: Influenza A PCR Negative (Negative); Influenza B PCR Negative (Negative); RSV PCR Negative (Negative)
[2024-07-06 23:04] LABS: COVID-19 PCR Positive (Negative); Source NASOPHARYNX
[2024-07-06 23:08] LABS: Bilirubin Negative (Negative); Blood Negative (Negative); Clarity Clear (Clear); Glucose Negative (Negative); Ketones Negative (Negative); Leukocyte Esterase Negative (Negative); Nitrite Negative (Negative); Specific Gravity >= 1.030 (1.005-1.025); Urobilinogen 0.2 mg/dL (Up to 0.2)
[2024-07-06 23:12] LABS: ALT 22 U/L (14-59); AST 13 U/L (15-37); Alkaline Phosphatase 87 U/L (46-116); Anion Gap 9.5 mmol/L (3-11); BUN 8 mg/dL (7-18); Bilirubin, Total 0.12 mg/dL (0.2-1.0); CO2 23.5 mmol/L (21.0-32.0); CREATININE 0.9 mg/dL (0.55-1.02); Calcium 8.2 mg/dL (8.5-10.1); Chloride 107 mmol/L (98-107); Estimated GFR 81.86 (mL/min/1.73m2); Glucose 111 mg/dL (74-106); Magnesium 1.6 mg/dL (1.8-2.4); Potassium 3.9 mmol/L (3.5-5.1); Sodium 140 mmol/L (136-145); Total Protein 6.3 g/dL (6.4-8.2)
[2024-07-06 23:31] VITALS: BP 118/55; PULSE 83; RESP 18; TEMP 37.1; O2SAT 96
== END 2024-07-06 23:32 | disposition home or self-care (01) ==
PROVIDERS: Emergency Provider Emergency Medicine; PCP Nurse Practitioner Family
DX: U07.1 COVID-19 (principal); E83.42 Hypomagnesemia; F41.9 Anxiety disorder, unspecified; F32.A Depression, unspecified; R53.83 Other fatigue; K21.9 Gastro-esophageal reflux disease without esophagitis; R55 Syncope and collapse
CPT/HCPCS: 36415; 80053; 81025; 87637; 93005; 99284; 81003; 83735; 85025; 93010

== ENCOUNTER 2024-07-23 08:32 | Outpatient (CLI) | payer MEDICARE, SELFPAY ==
[2024-07-23 09:01] LABS: ESR 13 mm/hr (0-20)
[2024-07-23 09:36] LABS: Hemoglobin A1C 5.5 % (<5.7)
[2024-07-23 09:51] LABS: Calculated LDL 102 mg/dL (<100); Cholesterol 170 mg/dL (<200); Ferritin 85 ng/mL (8-252); Folate 7.5 ng/mL (8.6-20.0); HDL Cholesterol 58 mg/dL (40-60); Iron 46 ug/dL (50-170); TSH (W/Ref FT4) 3.27 uIU/mL (0.36-3.74); Total Iron Binding Capacity 309 ug/dL (250-450); Transferrin Sat 15 % (15-50); Triglyceride 50 mg/dL (<150); Vitamin B12 373 pg/mL (193-986)
[2024-07-23 10:16] LABS: C-Reactive Protein 0.53 mg/dL (<or=0.5)
[2024-07-24 09:25] LABS: Transferrin 243 mg/dL (201-352)
[2024-07-24 10:02] LABS: Lyme Ab w Rflx to Lyme Confirm Negative (Negative)
[2024-07-24 13:31] LABS: ANA Interpretation Negative (Negative)
[2024-07-26 16:57] LABS: Anaplasma phagocytophilum Negative (Negative); B. miyamotoi PCR Negative (Negative); Babesia divergens/MO-1 Negative (Negative); Babesia duncani Negative (Negative); Babesia microti Negative (Negative); Ehrlichia chaffeensis Negative (Negative); Ehrlichia ewingii/canis Negative (Negative); Ehrlichia muris eauclairensis Negative (Negative)
== END 2024-07-23 08:33 | disposition home or self-care (01) ==
LOC: LBO 08:33
PROVIDERS: PCP Nurse Practitioner Family; Visit Provider Nurse Practitioner Family
DX: E66.9 Obesity, unspecified (principal); D75.1 Secondary polycythemia; E03.9 Hypothyroidism, unspecified; G89.4 Chronic pain syndrome
CPT/HCPCS: 36415; 80061; 85652; 87798; 82607; 82728; 82746; 83036; 83540; 83550; 84443; 84466; 86038; 86140; 86618